=== PATIENT | male | born 1955 | race Caucasian/White ===

== ENCOUNTER 2022-12-24 11:15 | Emergency (ER) | payer OTHER ==
[2022-12-24 11:34] LABS: Absolute Lymphocytes (CBC) 1.5 K/uL (0.7-4.9); Hematocrit 39.9 % (39.6-49.0); Lymphocytes % 11.6 % (15.3-44.8); MCV 94.2 fL (80-100); MPV 6.1 fL (7.6-11.3); RBC Red Blood Cell Count 4.24 M/uL (4.33-5.43)
[2022-12-24] MEDS ORDERED: NITROGLYCERIN 0.4 MG/TAB SL ONE (11:37)
[2022-12-24] MEDS ORDERED: ALBUTEROL 2.5 MG/3 ML NEB SOL ONE ×2 (11:37→12:28)
[2022-12-24] MEDS ORDERED: IPRATROPIUM BROM 0.5MG/2.5ML ONE ×2 (11:38→12:28)
--- OUTSIDE RECORDS SUMMARY | 2022-12-24 11:42 | XMS REPORT | Continuity of Care Document ---
:1955 Author Organization [facility] t Address [address] [place] [address]. [address] [place] [address] Care Team Providers Name Role Phone Parul Mcdaniel MD Primary Care Physician Terra Parker Attending Clinician Unavailable MANDA PRITCHARD Attending Clinician Unavailable Manda Pritchard DO Attending Clinician Doctor Unassigned, [place] Attending Clinician Unavailable Daniel Attending Clinician Unavailable Brooke He MD Attending Clinician BROOKE HE Attending Clinician Unavailable ANKITA GILLETTE Attending Clinician Unavailable Ankita Gillette MD Attending Clinician DR ILIR JOHNSON Attending Clinician Unavailable RENETTA PEDERSON Attending Clinician Unavailable Jasper Pathak Attending Clinician Unavailable Rolan Rubalcava Attending Clinician Unavailable KATRINA CHI Attending Clinician Unavailable Luis BUNN, Eleuterio Attending Clinician Unavailable MARYSE HDZ Attending Clinician Unavailable LETI CHANEY Attending Clinician Unavailable Maryse Hdz Attending Clinician Terra Parker Admitting Clinician Unavailable Leonardo Jarrett Admitting Clinician Unavailable Daniel Admitting Clinician Unavailable DR ILIR JOHNSON Admitting Clinician Unavailable Jasper Pathak Admitting Clinician Unavailable DENA MONTANA Admitting Clinician Unavailable Payers Payer Name Policy Type Policy Number Effective Date Expiration Date Nic adams MEDICARE PART A [id number] 2018 \\T\\ B 00:00:00 MEDICAID OF [place] [id number] 2018 00:00:00 0500 [id number] 1961 00:00:00 0700 [id number] 1961 00:00:00 Problems Condition Condition Condition Status Onset Resolution Last Treating Co mments Source Name Details Category Date Date Treatment Clinician Date Protein-ca Protein-ca Disease Recurre Methodi alfredo fuentes nce 2-12 st malnutriti malnutriti 00:00: Ho spita on on 00 l Severe Severe Disease Recurre Methodi episode of 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 00:00: [facility] 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, disorder, without without 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 (chronic (chronic nce 2-11 st obstructiv obstructiv 00:00: Ho spita e e 00 l pulmonary pulmonary disease) disease) Alcohol 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 ICD10 Diagnosis Term Order Editor Utility History of History of Disease Active 2011-06 Overview : Univers colonic colonic 08-05 Formattin ity o f polyps polyps 00:00: g of this [place] note Medical might be Branch different from the original. ICD10 Diagnosis Term Order Editor Utility Chronic Chronic Disease Active 2011-06 Univers airway airway 2-05 ity of obstructio obstructio 00:[place], [place] n, not 00 Medical elsewhere elsewhere Bran ch classified classified Esophageal Esophageal Disease Active 2011-06 U nivers reflux reflux 2-05 ity of 00:00: [place] 00 Medical Branch Chronic Chronic Disease Active 2011-06 Univers pain pain 2-05 ity of disorder disorder 00:00: [place] 00 Medical Branch Major Major Disease Active Overview: Univer s depressive depressive 3-30 Formattin ity of disorder, disorder, 00:00: [place] recurrent recurrent 00 note Medi juno episode, episode, might be Bran ch severe severe different from the original. ICD10 Diagnosis Term Order Editor Utility Posttrauma Posttrauma Disease Active U nivers tic stress tic stress 3-30 it y of disorder disorder 00:00: [place] 00 Medical Branch Major Major Disease Active Overview: Univer s depressive depressive 5-19 Formattin ity of disorder, disorder, 00:00: [place] of this [place] single single 00 note Medical episode, episode, might be Bran ch severe severe different with with from the psychotic psychotic original. features features ICD10 Diagnosis Term Order Editor Utility Other and Other and Disease Active Uni vers unspecifie unspecifie 5-19 it y of d d 00:00: [place] superficia superficia 00 Me dical l injuries l injuries Br anch of eye of eye Suicidal Suicidal Disease Active Unive rs ideation ideation 11-15 ity of 00:00: [place] 00 Medical Branch Allergies, Adverse Reactions, Alerts Allergy Allergy Status Severity Reaction(s) Onset Inactive Treating Comm ents Source Name Type Date Date Clinician Mesna - Propensi Active Intraven ty to 7-13 ous adverse 00:00: reaction 00 to drug Demerol Propensi Active - Oral ty to 4-29 adverse 00:00: reaction 00 to drug neomycin DA Active SV REDNESS/SWEL HC A LING 6-24 [facility] meperidi DA Active SV HALLUCINATIO HC A ne NS/VIOLENCE 12-21 [facility] 00:[facility]: d [facility] neomycin DA Active SV REDNESS/SWEL HC A LING 07-31 [facility] 00:00: d 00 [facility] meperidi DA Active SV HALLUCINATIO 2018- HC A ne NS/VIOLENCE 07-31 Mainl an 00:00: d 00 [facility] Meperidi Propensi Active Hives Method i ne ty to 11-28 st adverse 00:00: Hospita reaction 00 l s to drug Neomycin Propensi Active Hives Method i ty to 11-28 st adverse 00:00: Hospita reaction 00 l s to drug neomycin DA Active U 2013-06 [facility] 07-06 Clear 00:00: [place] 00 [facility] meperidi DA Active U 2013-06 [facility] ne 07-06 Clear 00:00: [place] 00 [facility] Meperidi Propensi Active Rash 2005-0 Redness/s Uni vers ne (Pf) ty to 5-19 welling ity of adverse 00:00: [place] reaction 00 Medical s Branch Neomycin Propensi Active Rash 2005-0 Redness/s Uni vers ty to 5-19 welling ity of adverse 00:00: [place] reaction 00 Medical s Branch MEPERIDI DRUG Active Rash 2006-0 Univers NE (PF) 5-19 ity of 00:00: [place] 00 Medical [place] NEOMYCIN DRUG Active Rash 2005-0 Univers INGREDI 5-19 ity of 00:00: [place] 00 Medical [place] No Known DA Active [facility] s Social History Social Habit Start Date Stop Date Quantity Comments Source Gender identity [facility] Sexual orientation [facility] History of tobacco Cigarette Smoker University of use [facility] Exposure to 2022-08-19 2022-08-29 Not sure University of SARS-CoV-2 (event) 00:00:00 14:56:00 [facility] Tobacco use and 2022-01-17 2022-01-17 Smokeless Universit y of exposure 00:00:00 00:00:00 tobacco non-user [facility] History of Social 2019-08-15 2019-08-[address] function 00:00:00 00:00:00 Hospital Alcohol intake 2019-08-11 2019-08-11 Current drinker [facility]o dist 00:00:00 00:00:00 of alcohol Hospital (finding) Tobacco Comment 2019-08-10 2019-08-10 request faxed to Met oscar 00:00:00 00:00:00 quit line. Hospital Cigarettes smoked 2019-08-10 2019-08-[address] current (pack per 00:00:00 00:00:00 [facility] l day) - Reported Cigarette 2019-08-10 2019-08-10 [facility] 00:00:00 00:00:00 Hospital Sex Assigned At [birth year] [facility] 00:[facility] Smoking Status Start Date Stop Date Source Smokes tobacco daily 2022-01-17 00:00:00 [facility] ity of [place] [facility] Medications Ordered Filled Start Stop Current Ordering Indication Dosage Frequency Signature Comments Components Source Medication Medication Date Date Medication? Clinician (SIG) Name Name nicotine Yes 1{patch 1 Patch, Un radha (NICODERM) 08-29 } Topical, ity o f 21 mg/24 hr 22:15: Administer [place] patch 1 00 over 24 Medical Patch Hours, Branch Q24H, First dose on Talia 08/29/22 at 1615, Until Discontinu ed, Routine TAKE 1 2021-06 No TABLET 1-30 TWICE 00:00: DAILY. 00 mirtazapine 2021-06 No 30 mg 1-02 tablet 00:00: 00 chlorpromaz 2021-06 No ine 50 mg 1-02 tablet 00:00: 00 mirtazapine 1 No 30 mg 1-02 tablet 00:00: 00 chlorpromaz 2021-1 No ine 50 mg 1-02 tablet 00:00: 00 Dose 2021-0 No Unknown 7-15 00:00: 00 Dose 2021-0 No Unknown 7-15 00:00: 00 &lt 2022-0 No 7-14 00:00: 00 &lt 2-0 No 7-14 00:00: 00 metoprolol 2021-0 No 1mg tartrate 50 7-13 mg tablet 00:00: 00 diclofenac 2021-0 No 1mg sodium 75 7-13 mg 00:00: tablet,niesha 00 yed release Dose 2021-0 No Unknown 7-13 00:00: 00 &lt 2-0 No 7-13 00:00: 00 &lt 2-0 No 7-13 00:00: 00 &lt 2022-0 No 7-13 00:00: 00 &lt 2022-0 No 7-13 00:00: 00 Dose 2022-0 No Unknown 7-13 00:00: 00 &lt 2022-0 No 7-13 00:00: 00 Dose 2022-0 No Unknown 7-13 00:00: 00 &lt 2022-0 No 7-13 00:00: 00 &lt 2022-0 No 7-13 00:00: 00 Dose 2022-0 No Unknown 7-13 00:00: 00 TAKE 1 2022-0 No TABLET 7-13 TWICE 00:00: DAILY. 00 diclofenac 2-0 No 1mg sodium 75 7-13 mg 00:00: tablet,niesha 00 yed release Dose 2-0 No Unknown 7-13 00:00: 00 &lt 2022-0 No 7-13 00:00: 00 &lt 2022-0 No 7-13 00:00: 00 &lt 2022-0 No 7-13 00:00: 00 &lt 2022-0 No 7-13 00:00: 00 Dose 2022-0 No Unknown 7-13 00:00: 00 &lt 2022-0 No 7-13 00:00: 00 Dose 2022-0 No Unknown 7-13 00:00: 00 &lt 2022-0 No 7-13 00:00: 00 &lt 2022-0 No 7-13 00:00: 00 Dose 2022-0 No Unknown 7-13 00:00: 00 Dose 2022-0 No Unknown 7-13 00:00: 00 &lt 2022-0 No 7-13 00:00: 00 &lt 2022-0 No 7-13 00:00: 00 &lt 2022-0 No 7-13 00:00: 00 &lt 2022-0 No 7-13 00:00: 00 Dose 2022-0 No Unknown 7-13 00:00: 00 &lt 2022-0 No 7-13 00:00: 00 Dose 2022-0 No Unknown 7-13 00:00: 00 &lt 2022-0 No 7-13 00:00: 00 &lt 2022-0 No 7-13 00:00: 00 Dose 2022-0 No Unknown 7-13 00:00: 00 metoprolol 2022-0 No 1mg tartrate 50 4-29 mg tablet 00:00: 00 Dose 2022-0 No Unknown 4- 00:00: 00 Dose 2022-0 No Unknown 4- 00:00: 00 Dose 2022-0 No Unknown 4- 00:00: 00 Dose 2022-0 No Unknown 4- 00:00: 00 Dose 2022-0 No Unknown 4- 00:00: 00 Dose 2022-0 No Unknown 4 00:00: 00 Dose 2022-0 No Unknown 4- 00:00: 00 Dose 2022-0 No Unknown 4- 00:00: 00 Dose 2022-0 No Unknown 4 00:00: 00 Dose 2022-0 No Unknown 4 00:00: 00 Dose 2022-0 No Unknown 4 00:00: 00 Dose 2022-0 No Unknown 4 00:00: 00 Dose 2022-0 No Unknown 4 00:00: 00 Dose 2022-0 No Unknown 4 00:00: 00 Dose 2022-0 No Unknown 4 00:00: 00 Dose 2022-0 No Unknown 4- 00:00: 00 Dose 2022-0 No Unknown 4- 00:00: 00 Dose 2022-0 No Unknown 4- 00:00: 00 Dose 2022-0 No Unknown 4- 00:00: 00 Dose 2022-0 No Unknown 4- 00:00: 00 Dose 2022-0 No Unknown 4- 00:00: 00 Dose 2022-0 No Unknown 4- 00:00: 00 Dose 2022-0 No Unknown 4- 00:00: 00 Dose 2022-0 No Unknown 4- 00:00: 00 Dose 2022-0 No Unknown 4- 00:00: 00 Dose 2022-0 No Unknown 4- 00:00: 00 Dose 2-0 No Unknown 4- 00:00: 00 Dose 2022-0 No Unknown 4- 00:00: 00 Dose 2022-0 No Unknown 4- 00:00: 00 Dose 2022-0 No Unknown 4- 00:00: 00 Dose 2022-0 No Unknown 4- 00:00: 00 Dose 2022-0 No Unknown 4- 00:00: 00 Dose 2022-0 No Unknown 4-29 00:00: 00 Dose 2022-0 No Unknown 4-29 00:00: 00 Dose 2022-0 No Unknown 4-29 00:00: 00 metoprolol 2022-0 No 1mg tartrate 50 4-29 mg tablet 00:00: 00 Dose 2022-0 No Unknown 4- 00:00: 00 Dose 2022-0 No Unknown 4- 00:00: 00 Dose 2022-0 No Unknown 4-29 00:00: 00 metoprolol 2022-0 No 1mg tartrate 50 4-29 mg tablet 00:00: 00 Dose 2-0 No Unknown 4- 00:00: 00 Dose 2-0 No Unknown 4- 00:00: 00 Dose 2-0 No Unknown 4- 00:00: 00 Dose 2-0 No Unknown 4- 00:00: 00 Dose 2022-0 No Unknown 4- 00:00: 00 Dose 2022-0 No Unknown 4- 00:00: 00 Dose 2022-0 No Unknown 4- 00:00: 00 Dose 2022-0 No Unknown 4- 00:00: 00 Dose 2022-0 No Unknown 4- 00:00: 00 Dose 2-0 No Unknown 4- 00:00: 00 Dose 2-0 No Unknown 4- 00:00: 00 Dose 2-0 No Unknown 4- 00:00: 00 Dose 2022-0 No Unknown 4- 00:00: 00 Dose 2022-0 No Unknown 4- 00:00: 00 Dose 2022-0 No Unknown 4- 00:00: 00 Dose 2-0 No Unknown 4- 00:00: 00 Dose 2022-0 No Unknown 4- 00:00: 00 Dose 2022-0 No Unknown 4- 00:00: 00 Dose 2-0 No Unknown 4- 00:00: 00 Dose 2-0 No Unknown 4- 00:00: 00 Dose 2022-0 No Unknown 4- 00:00: 00 Dose 2022-0 No Unknown 4- 00:00: 00 Dose 2022-0 No Unknown 4-29 00:00: 00 Dose 2022-0 No Unknown 4-29 00:00: 00 Dose 2022-0 No Unknown 4-29 00:00: 00 Dose 2022-0 No Unknown 4- 00:00: 00 Dose 2022-0 No Unknown 4- 00:00: 00 Dose 2022-0 No Unknown 4- 00:00: 00 Dose 2022-0 No Unknown 4- 00:00: 00 Dose 2022-0 No Unknown 4- 00:00: 00 Dose 2022-0 No Unknown 4- 00:00: 00 Dose 2022-0 No Unknown 4- 00:00: 00 Dose 2022-0 No Unknown 4- 00:00: 00 Dose 2022-0 No Unknown 4- 00:00: 00 Dose 2022-0 No Unknown 4- 00:00: 00 Dose 2022-0 No Unknown 4- 00:00: 00 Dose 2022-0 No Unknown 4- 00:00: 00 Dose 2022-0 No Unknown 4- 00:00: 00 Dose 2022-0 No Unknown 4- 00:00: 00 Dose 2022-0 No Unknown 4- 00:00: 00 Dose 2022-0 No Unknown 4- 00:00: 00 Dose 2022-0 No Unknown 4- 00:00: 00 Dose 2022-0 No Unknown 4- 00:00: 00 Dose 2022-0 No Unknown 4- 00:00: 00 Dose 2022-0 No Unknown 4- 00:00: 00 Dose 2022-0 No Unknown 4- 00:00: 00 Dose 2022-0 No Unknown 4- 00:00: 00 Dose 2022-0 No Unknown 4- 00:00: 00 Dose 2022-0 No Unknown 4- 00:00: 00 Dose 2022-0 No Unknown 4- 00:00: 00 Dose 2022-0 No Unknown 4- 00:00: 00 Dose 2022-0 No Unknown 4- 00:00: 00 Dose 2022-0 No Unknown 4- 00:00: 00 Dose 2022-0 No Unknown 4- 00:00: 00 Dose 2022-0 No Unknown 4- 00:00: 00 Dose 2022-0 No Unknown 4- 00:00: 00 Dose 2022-0 No Unknown 4-29 00:00: 00 Dose 2022-0 No Unknown 4- 00:00: 00 Dose 2022-0 No Unknown 4- 00:00: 00 Dose 2-0 No Unknown 4- 00:00: 00 Dose 2-0 No Unknown 4- 00:00: 00 Dose 2-0 No Unknown 4- 00:00: 00 Dose 2022-0 No Unknown 4- 00:00: 00 Dose 2022-0 No Unknown 4- 00:00: 00 Dose 2-0 No Unknown 4- 00:00: 00 Dose 2-0 No Unknown 4- 00:00: 00 Dose 2022-0 No Unknown 4- 00:00: 00 ProAir HFA 2-0 No 2mcg/ac 90 1-28 tuation mcg/actuati 00:00: on aerosol 00 inhaler Dose 2-0 No Unknown 1-28 00:00: 00 metoprolol 2-0 No 1mg tartrate 50 1-28 mg tablet 00:00: 00 ProAir HFA 2-0 No 2mcg/ac 90 1-28 tuation mcg/actuati 00:00: on aerosol 00 inhaler Dose 2-0 No Unknown 1-28 00:00: 00 metoprolol 2022-0 No 1mg tartrate 50 1-28 mg tablet 00:00: 00 ProAir HFA 2-0 No 2mcg/ac 90 1-28 tuation mcg/actuati 00:00: on aerosol 00 inhaler Dose 2-0 No Unknown 1-28 00:00: 00 metoprolol 2022-0 No 1mg tartrate 50 1-28 mg tablet 00:00: 00 Dose 1-1 No Unknown 0-14 00:00: 00 Dose 1-1 No Unknown 0-14 00:00: 00 Dose 1-1 No Unknown 0-14 00:00: 00 Viagra 25 2021-0 No 1mg mg tablet 03-08 00:00: 00 Viagra 25 2021-0 No 1mg mg tablet 03-08 00:00: 00 Viagra 25 2021-0 No 1mg mg tablet 03-08 00:00: 00 lithium 1-0 No mg carbonate 8-31 ER 450 mg 00:00: tablet,exte 00 nded release duloxetine 2020-0 No mg 60 mg 8-31 capsule,del 00:00: ayed 00 release lithium 1-0 No mg carbonate 8-31 ER 450 mg 00:00: tablet,exte 00 nded release duloxetine 1-0 No mg 60 mg 8-31 capsule,del 00:00: ayed 00 release lithium 2021-0 No mg carbonate 8-31 ER 450 mg 00:00: tablet,exte 00 nded release duloxetine 1-0 No mg 60 mg 8-31 capsule,del 00:00: ayed 00 release atorvastati 2021-0 No 1mg n 20 mg 7-07 tablet 00:00: 00 atorvastati 2021-0 No 1mg n 20 mg 7-07 tablet 00:00: 00 atorvastati 2021-0 No 1mg n 20 mg 7-07 tablet 00:00: 00 atorvastati 2021-0 No 1mg n 20 mg 3-18 tablet 00:00: 00 atorvastati 2021-0 No 1mg n 20 mg 3-18 tablet 00:00: 00 atorvastati 2021-0 No 1mg n 20 mg 3-18 tablet 00:00: 00 Symbicort 2021-0 No 2mcg/ac 160 mcg-4.5 3-11 tuation mcg/actuati 00:00: on HFA 00 aerosol inhaler ProAir HFA 2021-0 No 1mcg/ac 90 3-11 tuation mcg/actuati 00:00: on aerosol 00 inhaler metoprolol 2021-0 No 1mg succinate 3-11 ER 50 mg 00:00: tablet,exte 00 nded release 24 hr Symbicort 2021-0 No 2mcg/ac 160 mcg-4.5 3-11 tuation mcg/actuati 00:00: on HFA 00 aerosol inhaler ProAir HFA 2021-0 No 1mcg/ac 90 3-11 tuation mcg/actuati 00:00: on aerosol 00 inhaler metoprolol 2021-0 No 1mg succinate 3-11 ER 50 mg 00:00: tablet,exte 00 nded release 24 hr Symbicort 2021-0 No 2mcg/ac 160 mcg-4.5 3-11 tuation mcg/actuati 00:00: on HFA 00 aerosol inhaler ProAir HFA 2021-0 No 1mcg/ac 90 3-11 tuation mcg/actuati 00:00: on aerosol 00 inhaler metoprolol 1-0 No 1mg succinate 3-11 ER 50 mg 00:00: tablet,exte 00 nded release 24 hr ProAir HFA 2020-0 No 1mcg/ac 90 2-04 tuation mcg/actuati 00:00: on aerosol 00 inhaler Advair 1-0 No 1mcg/do Diskus 250 2-04 se mcg-50 00:00: mcg/dose 00 powder for inhalation ProAir HFA 2020-0 No 1mcg/ac 90 2-04 tuation mcg/actuati 00:00: on aerosol 00 inhaler metoprolol 1-0 No 1mg succinate 2-04 ER 50 mg 00:00: tablet,exte 00 nded release 24 hr Advair 2020-0 No 1mcg/do Diskus 250 2-04 se mcg-50 00:00: mcg/dose 00 powder for inhalation metoprolol 2020-0 No 1mg succinate 2-04 ER 50 mg 00:00: tablet,exte 00 nded release 24 hr ProAir HFA 2020-0 No 1mcg/ac 90 2-04 tuation mcg/actuati 00:00: on aerosol 00 inhaler Advair 1-0 No 1mcg/do Diskus 250 2-04 se mcg-50 00:00: mcg/dose 00 powder for inhalation metoprolol 1-0 No 1mg succinate 2-04 ER 50 mg 00:00: tablet,exte 00 nded release 24 hr metoprolol 2020-0 No 1mg succinate 1-21 ER 50 mg 00:00: tablet,exte 00 nded release 24 hr metoprolol 1-0 No 1mg succinate 1-21 ER 50 mg 00:00: tablet,exte 00 nded release 24 hr metoprolol 1-0 No 1mg succinate 1-21 ER 50 mg 00:00: tablet,exte 00 nded release 24 hr trazodone 2020-0 No 1mg 150 mg 9-29 tablet 00:00: 00 mirtazapine 2020-0 No 1mg 45 mg 9-29 tablet 00:00: 00 gabapentin 2020-0 No 1mg 600 mg 9-29 tablet 00:00: 00 sucralfate 2020-0 No 1gram 1 gram 9-29 tablet 00:00: 00 trazodone 2020-0 No 1mg 150 mg 9-29 tablet 00:00: 00 mirtazapine 2020-0 No 1mg 45 mg 9-29 tablet 00:00: 00 gabapentin 2020-0 No 1mg 600 mg 9-29 tablet 00:00: 00 sucralfate 2020-0 No 1gram 1 gram 9-29 tablet 00:00: 00 trazodone 2020-0 No 1mg 150 mg 9-29 tablet 00:00: 00 mirtazapine 2020-0 No 1mg 45 mg 9-29 tablet 00:00: 00 gabapentin 2020-0 No 1mg 600 mg 9-29 tablet 00:00: 00 sucralfate 2020-0 No 1gram 1 gram 9-29 tablet 00:00: 00 prednisoLON 2020-0 Yes [id number] 1[drp] Place 1 Univers E acetate 1 6-11 [id number] Drop in ity of % 00:00: both eyes [place] ophthalmic 00 3 (three) Medi juno suspension times Branch drops daily. prednisoLON 2020-0 Yes [id number] 1[drp] Place 1 Univers E acetate 1 6-11 [id number] Drop in ity of % 00:00: both eyes [place] ophthalmic 00 3 (three) Medi juno suspension times Branch drops daily. prednisoLON 2020-0 Yes [id number] 1[drp] Place 1 Univers E acetate 1 6-11 [id number] Drop in ity of % 00:00: both eyes [place] ophthalmic 00 3 (three) Medi juno suspension times Branch drops daily. prednisoLON 2020-0 Yes [id number] 1[drp] Place 1 Univers E acetate 1 6-11 [id number] Drop in ity of % 00:00: both eyes [place] ophthalmic 00 3 (three) Medi juno suspension times Branch drops daily. gabapentin 2020-0 Yes 600mg 600 mg. Uni vers 600 mg 5-12 ity of tablet 00:00: [place] [facility] gabapentin 2020-0 Yes 600mg 600 mg. Uni vers 600 mg 5-12 ity of tablet 00:00: [place] [facility] gabapentin 2020-0 Yes 600mg 600 mg. Uni vers 600 mg 5-12 ity of tablet 00:00: [place] [facility] gabapentin 2020-0 Yes 600mg 600 mg. Uni vers 600 mg 5-12 ity of tablet 00:00: [place] [id number] Medical Branch No known 2020-0 No No known Metho di medications 2-[address] 15:03: [facility] No known 2020-0 No No known Metho di medications 2-[address] 15:03: [facility] No known 2020-0 No No known Metho di medications 2-[address] 15:03: [facility] tamsulosin 2020-0 No 1mg 0.4 mg 2-06 capsule 00:00: 00 tamsulosin 2020-0 No 1mg 0.4 mg 2-06 capsule 00:00: 00 tamsulosin 2020-0 No 1mg 0.4 mg 2-06 capsule 00:00: 00 duloxetine 2020-0 No 1mg 60 mg 1-14 capsule,del 00:00: ayed 00 release duloxetine 2020-0 No 1mg 60 mg 1-14 capsule,del 00:00: ayed 00 release duloxetine 2020-0 No 1mg 60 mg 1-14 capsule,del 00:00: ayed 00 release mirtazapine 2018-0 Yes 45mg Take 45 mg Univers (REMERON) 9-10 by mouth ity of 45 mg 13:18: at [place] [address] bedtime. Medical Branch SUCRALFATE Yes Take by [facility] ers ORAL 9-10 mouth. ity of 13:18: [address] Branch mirtazapine Yes 45mg Take 45 mg Univers (REMERON) 9-10 by mouth ity of 45 mg 13:18: at [place] [address] bedtime. Medical Branch SUCRALFATE Yes Take by [facility] ers ORAL 9-10 mouth. ity of 13:18: [address] mirtazapine Yes 45mg Take 45 mg Univers (REMERON) 9-10 by mouth ity of 45 mg 13:18: at [place] tablet bedtime. Medical Branch SUCRALFATE Yes Take by [facility] ers ORAL 9-10 mouth. ity of 13:18: [address] mirtazapine 2018- Yes 45mg Take 45 mg Univers (REMERON) 9-10 by mouth ity of 45 mg 13:18: at [place] tablet bedtime. Medical Branch SUCRALFATE Yes Take by [facility] ers ORAL 9-10 mouth. ity of 13:18: [place] 32 [facility] latanoprost 2019-0 Yes 1[drp] Place 1 U nivers 0.005 % 5-24 Drop in ity of ophthalmic 00:00: [place] drops 00 every Medical evening. Branch latanoprost 2018-0 Yes 1[drp] Place 1 U nivers 0.005 % 5-24 Drop in ity of ophthalmic 00:00: [place] eyes [place] drops 00 every Medical evening. Branch latanoprost 2018-0 Yes 1[drp] Place 1 U nivers 0.005 % 5-24 Drop in ity of ophthalmic 00:00: [place] drops 00 every Medical evening. Branch latanoprost 2018-0 Yes 1[drp] Place 1 U nivers 0.005 % 5-24 Drop in ity of ophthalmic 00:00: [place] eyes [place] drops 00 every Medical evening. [place] lactulose 2019-0 Yes Univers 10 gram/15 2-27 ity of mL solution 00:00: [place] 00 [facility] lactulose 2019-0 Yes Univers 10 gram/15 2-27 ity of mL solution 00:00: [address] lactulose 2019-0 Yes Univers 10 gram/15 2-27 ity of mL solution 00:00: [address] lactulose 2019-0 Yes Univers 10 gram/15 2-27 ity of mL solution 00:00: [address] Abilify 5 2019-0 No 1mg mg tablet 2-21 00:00: 00 Abilify 5 2019-0 No 1mg mg tablet 2-21 00:00: 00 Abilify 5 2019-0 No 1mg mg tablet 2-21 00:00: 00 Remeron 30 2019-0 No 25mg mg tablet - 00:00: 00 Remeron 30 2019-0 No 25mg mg tablet 07-08 00:00: 00 Remeron 30 2019-0 No 25mg mg tablet 07-08 00:00: 00 ARIPiprazol 2018-0 Yes Univer s e 5 mg 6-26 ity of tablet 00:00: [address] ARIPiprazol 2018-0 Yes Univer s e 5 mg 6-26 ity of tablet 00:00: [address] ARIPiprazol 2018-0 Yes Univer s e 5 mg 6-26 ity of tablet 00:00: [address] Branch ARIPiprazol 2018-0 Yes Univer s e 5 mg 6-26 ity of tablet 00:00: [address] Branch Remeron 45 2014-1 No 1mg mg tablet 2-22 00:00: 00 hydroxyzine 2014-1 No 1mg HCl 50 mg 2-22 tablet 00:00: 00 Remeron 45 2014-1 No 1mg mg tablet 2-22 00:00: 00 hydroxyzine 2014-1 No 1mg HCl 50 mg 2-22 tablet 00:00: 00 Remeron 45 2014-1 No 1mg mg tablet 2-22 00:00: 00 hydroxyzine 2014-1 No 1mg HCl 50 mg 2-22 tablet 00:00: 00 metoprolol 2015-0 No 1mg tartrate 25 5-20 mg tablet 00:00: 00 metoprolol 2015-0 No 1mg tartrate 25 5-20 mg tablet 00:00: 00 metoprolol 2015-0 No 1mg tartrate 25 5-20 mg tablet 00:00: 00 cyclobenzap 2015-0 No 1mg rine 5 mg 4-15 tablet 00:00: 00 naproxen 2015-0 No 1mg 375 mg 4-15 tablet 00:00: 00 cyclobenzap 2015-0 No 1mg rine 5 mg 4-15 tablet 00:00: 00 naproxen 2015-0 No 1mg 375 mg 4-15 tablet 00:00: 00 cyclobenzap 2015-0 No 1mg rine 5 mg 4-15 tablet 00:00: 00 naproxen 2015-0 No 1mg 375 mg 4-15 tablet 00:00: 00 lithium 2015-0 No 1mg carbonate 2-25 ER 450 mg 00:00: tablet,exte 00 nded release Cymbalta 60 2015-0 No 1mg mg 2-25 capsule,del 00:00: ayed 00 release Neurontin 2015-0 No 1mg 300 mg 2-25 capsule 00:00: 00 Cymbalta 60 2015-0 No 2mg mg 2-25 capsule,del 00:00: ayed 00 release lithium 2015-0 No 1mg carbonate 2-25 ER 450 mg 00:00: tablet,exte 00 nded release Cymbalta 60 2014-0 No 1mg mg 2-25 capsule,del 00:00: ayed 00 release Neurontin 2015-0 No 1mg 300 mg 2-25 capsule 00:00: 00 Cymbalta 60 2014-0 No 2mg mg 2-25 capsule,del 00:00: ayed 00 release lithium 2015-0 No 1mg carbonate 2-25 ER 450 mg 00:00: tablet,exte 00 nded release Cymbalta 60 2014-0 No 1mg mg 2-25 capsule,del 00:00: ayed 00 release Neurontin 2015-0 No 1mg 300 mg 2-25 capsule 00:00: 00 Cymbalta 60 2014-0 No 2mg mg 2-25 capsule,del 00:00: ayed 00 release DULoxetine 2013- Yes [id number] 60mg Take 1 Cap Univers (CYMBALTA) 3-14 by mouth 2 ity of 60 mg 00:00: (two) [place] capsule 00 times Medical daily. [place] lithium Yes [id number] 450mg Take 1 Tab Univers carbonate 3-14 by mouth 2 ity of CR 450 mg 00:00: (two) [place] SR tablet 00 times Medical daily. [place] DULoxetine Yes [id number] 60mg Take 1 Cap Univers (CYMBALTA) 3-14 by mouth 2 ity of 60 mg 00:00: (two) [place] capsule 00 times Medical daily. Branch lithium 2013- Yes [id number] 450mg Take 1 Tab Univers carbonate 3-14 by mouth 2 ity of CR 450 mg 00:00: (two) [place] SR tablet 00 times Medical daily. [place] DULoxetine 2013- Yes [id number] 60mg Take 1 Cap Univers (CYMBALTA) 3-14 by mouth 2 ity of 60 mg 00:00: (two) [place] capsule 00 times Medical daily. Branch lithium 2013- Yes [id number] 450mg Take 1 Tab Univers carbonate 3-14 by mouth 2 ity of CR 450 mg 00:00: (two) [place] SR tablet 00 times Medical daily. Branch DULoxetine 2013- Yes [id number] 60mg Take 1 Cap Univers (CYMBALTA) 3-14 by mouth 2 ity of 60 mg 00:00: (two) [place] capsule 00 times Medical daily. Branch lithium 2013- Yes [id number] 450mg Take 1 Tab Univers carbonate 3-14 by mouth 2 ity of CR 450 mg 00:00: (two) [place] SR tablet 00 times Medical daily. Branch Immunizations Ordered Filled Immunization Date Status Comments [facility] e Immunization Name Name influenza, seasonal 2022-05-02 Completed vaccine, 00:00:00 quadrivalent, adjuvanted, .5mL dose, preservative-free influenza, seasonal 2022-05-02 Completed vaccine, 00:00:00 quadrivalent, adjuvanted, .5mL dose, preservative-free Moderna COVID-19 2021-10-26 Completed Vaccine 00:00:00 Moderna COVID-19 2021-10-26 Completed Vaccine 00:00:00 Moderna COVID-19 2021-10-26 Completed Vaccine 00:00:00 Moderna COVID-19 Moderna COVID-19 2021-10-26 Completed Vaccine Vaccine 00:00:00 Moderna COVID-19 2021-09-28 Completed Vaccine 00:00:00 Moderna COVID-19 2021-09-28 Completed Vaccine 00:00:00 Moderna COVID-19 2021-09-28 Completed Vaccine 00:00:00 Moderna COVID-19 Moderna COVID-19 2021-09-28 Completed Vaccine Vaccine 00:00:00 Pfizer COVID-19 Pfizer COVID-19 2021-02-25 Completed Vaccine Vaccine 00:00:00 Pneumococcal 2020-07-04 Completed conjugate P 00:00:00 Pneumococcal 2020-07-04 Completed conjugate P 00:00:00 Pneumococcal 2020-07-04 Completed conjugate P 00:00:00 TDAP 2019-06-03 Completed University of 00:00:00 [facility] TDAP 2019-06-03 Completed University of 00:00:00 [facility] Influenza, 2019-05-25 Completed seasonal, inj 00:00:00 Influenza, 2019-05-25 Completed seasonal, inj 00:00:00 Influenza, 2019-05-25 Completed seasonal, inj 00:00:00 Influenza Virus 2012-06-03 Completed Universit y of Vaccine 00:00:00 [facility] Influenza Virus 2012-06-03 Completed Universit y of Vaccine 00:00:00 [facility] Influenza Virus 2012-06-03 Completed Universit y of Vaccine 00:00:00 [facility] Influenza Virus 2012-06-03 Completed Universit y of Vaccine 00:00:00 [facility] Vital Signs Vital Name Observation Time Observation Value Comments Source Systolic blood 2022-08-30 02:24:00 138 mm[Hg] Univer sity of pressure [facility] [place] [facility] Diastolic blood 2022-08-30 02:24:00 79 mm[Hg] Unive rsity of pressure [facility] Heart rate 2022-08-30 02:24:00 78 /min [facility] [place] [facility] [place] Body temperature 2022-08-30 02:24:00 36.67 Nancy Univ ersity of [facility] [place] [facility] Respiratory rate 2022-08-30 02:24:00 17 /min Univ ersity of [facility] [place] [facility] Oxygen saturation in 2022-08-30 02:24:00 99 /min University of Arterial blood by [employer] Pulse oximetry Branch Body height 2022-08-29 20:58:00 185.4 cm [facility] [place] [facility] [place] Body weight 2022-08-29 20:58:00 95.255 kg [facility] [place] [facility] [place] BMI 2022-08-29 20:58:00 27.71 kg/m2 [facility] [place] [facility] Systolic blood 2022-01-17 14:34:00 136 mm[Hg] Univer sity of pressure [place] [facility] Diastolic blood 2022-01-17 14:34:00 86 mm[Hg] Unive rsity of pressure [facility] Heart rate 2022-01-17 14:34:00 85 /min [facility] [place] [facility] Body height 2022-01-17 14:34:00 185.4 cm [facility] [place] [facility] Body weight 2022-01-17 14:34:00 91.627 kg [facility] [place] [facility] BMI 2022-01-17 14:34:00 26.65 kg/m2 Universi ty of [facility] [place] [facility] Oxygen saturation in 2022-01-17 14:34:00 96 /min University of Arterial blood by [employer] Pulse [employer]xim[employer] Branch Weight 2021-05-28 08:26:00 76.2 KG Weight 2021-05-21 11:40:00 74.75 KG Height 2021-05-13 12:13:00 185.42 CM Weight 2021-05-13 12:13:00 72.57 KG BP Systolic 2022-05-29 16:38:00 147 mm[Hg] BP Diastolic 2022-05-29 16:38:00 87 mm[Hg] Weight Measured 2022-05-29 16:38:00 210.60 pounds Height Measured 2022-05-29 16:38:00 71.00 inches Body Temperature 2022-05-29 16:38:00 98.30 degrees Heart Rate 2022-05-29 16:38:00 96.00 /min Respiratory Rate 2022-05-29 16:38:00 BP Systolic 2022-05-02 10:16:00 137 mm[Hg] BP Diastolic 2022-05-02 10:16:00 82 mm[Hg] Weight Measured 2022-05-02 10:16:00 208.60 pounds Height Measured 2022-05-02 10:16:00 71.00 inches Body Temperature 2022-05-02 10:16:00 98.30 degrees Heart Rate 2022-05-02 10:16:00 83.00 /min Respiratory Rate 2022-05-02 10:16:00 BP Systolic 2022-01-09 09:53:00 138 mm[Hg] BP Diastolic 2022-01-09 09:53:00 81 mm[Hg] Weight Measured 2022-01-09 09:53:00 200.40 pounds Height Measured 2022-01-09 09:53:00 71.00 inches Body Temperature 2022-01-09 09:53:00 98.20 degrees Heart Rate 2022-01-09 09:53:00 79.00 /min Respiratory Rate 2022-01-09 09:53:00 BP Systolic 2021-10-26 14:49:00 114 mm[Hg] BP Diastolic 2021-10-26 14:49:00 74 mm[Hg] Weight Measured 2021-10-26 14:49:00 196.80 pounds Height Measured 2021-10-26 14:49:00 71.00 inches Body Temperature 2021-10-26 14:49:00 97.80 degrees Heart Rate 2021-10-26 14:49:00 68.00 /min Respiratory Rate 2021-10-26 14:49:00 BP Systolic 2021-08-14 10:05:00 126 mm[Hg] BP Diastolic 2021-08-14 10:05:00 79 mm[Hg] Weight Measured 2021-08-14 10:05:00 108.60 pounds Height Measured 2021-08-14 10:05:00 71.00 inches Body Temperature 2021-08-14 10:05:00 97.50 degrees Heart Rate 2021-08-14 10:05:00 57.00 /min Respiratory Rate 2021-08-14 10:05:00 BP Systolic 2021-07-27 11:28:00 131 mm[Hg] BP Diastolic 2021-07-27 11:28:00 82 mm[Hg] Weight Measured 2021-07-27 11:28:00 179.20 pounds Height Measured 2021-07-27 11:28:00 71.00 inches Body Temperature 2021-07-27 11:28:00 96.70 degrees Heart Rate 2021-07-27 11:28:00 73.00 /min Respiratory Rate 2021-07-27 11:28:00 16.00 /min BP Systolic 2021-03-08 11:16:00 119 mm[Hg] BP Diastolic 2021-03-08 11:16:00 71 mm[Hg] Weight Measured 2021-03-08 11:16:00 171.20 pounds Height Measured 2021-03-08 11:16:00 71.00 inches Body Temperature 2021-03-08 11:16:00 97.60 degrees Heart Rate 2021-03-08 11:16:00 74.00 /min Respiratory Rate 2021-03-08 11:16:00 16.00 /min BP Systolic 2020-09-07 10:39:00 93 mm[Hg] BP Diastolic 2020-09-07 10:39:00 58 mm[Hg] Weight Measured 2020-09-07 10:39:00 176.20 pounds Height Measured 2020-09-07 10:39:00 71.00 inches Body Temperature 2020-09-07 10:39:00 98.10 degrees Heart Rate 2020-09-07 10:39:00 92.00 /min Respiratory Rate 2020-09-07 10:39:00 16.00 /min BP Systolic 2020-08-03 11:45:00 123 mm[Hg] BP Diastolic 2020-08-03 11:45:00 72 mm[Hg] Weight Measured 2020-08-03 11:45:00 171.20 pounds Height Measured 2020-08-03 11:45:00 71.00 inches Body Temperature 2020-08-03 11:45:00 98.30 degrees Heart Rate 2020-08-03 11:45:00 90.00 /min Respiratory Rate 2020-08-03 11:45:00 17.00 /min BP Systolic 2020-07-31 16:49:00 161 mm[Hg] BP Diastolic 2020-07-31 16:49:00 92 mm[Hg] Weight Measured 2020-07-31 16:49:00 Height Measured 2020-07-31 16:49:00 Body Temperature 2020-07-31 16:49:00 Heart Rate 2020-07-31 16:49:00 96.00 /min Respiratory Rate 2020-07-31 16:49:00 BP Systolic 2020-07-20 11:07:00 151 mm[Hg] BP Diastolic 2020-07-20 11:07:00 91 mm[Hg] Weight Measured 2020-07-20 11:07:00 171.40 pounds Height Measured 2020-07-20 11:07:00 71.00 inches Body Temperature 2020-07-20 11:07:00 98.00 degrees Heart Rate 2020-07-20 11:07:00 82.00 /min Respiratory Rate 2020-07-20 11:07:00 16.00 /min BP Systolic 2020-07-04 11:19:00 158 mm[Hg] BP Diastolic 2020-07-04 11:19:00 90 mm[Hg] Weight Measured 2020-07-04 11:19:00 172.20 pounds Height Measured 2020-07-04 11:19:00 71.00 inches Body Temperature 2020-07-04 11:19:00 98.50 degrees Heart Rate 2020-07-04 11:19:00 Respiratory Rate 2020-07-04 11:19:00 Procedures Procedure Date / Time Performing Clinician Source Performed CREATINE KINASE 2022-08-29 21:15:00 Manda Pritchard [facility] Branch COMP. METABOLIC PANEL 2022-08-29 21:15:00 Manda Pritchard [facility] ([id number]) Medical Branch SALICYLATE 2022-08-29 21:15:00 Manda Pritchard [facility] ETHANOL 2022-08-29 21:15:00 Manda Pritchard [facility] CBC WITH DIFF 2022-08-29 21:15:00 Manda Pritchard [facility] URINALYSIS 2022-08-29 21:15:00 Manda Pritchard [facility] COVID-19 (MOLECULAR 2022-08-29 21:15:00 Manda Pritchard [facility] TESTING [facility] NUCLEIC ACID AMPLIFICATION) COVID-19 (ID NOW RAPID 2022-08-29 21:15:00 [facility] URINE DRUG (IMMUNOASSAY) 2022-08-29 21:15:00 Manda Pritchard [facility] COMPREHENSIVE DRUG Medical [facility] SCREEN W/O REFLEX REFERRAL- 2022-06-14 06:01:00 Doctor Unassigned, No [facility] REQUEST/RESPONSE Name Medical Branch [id number] - Removal Of 2020-05-16 00:00:00 Impacted Cerumen Using Irrigation/lavage [id number] - Removal Of 2020-05-09 00:00:00 Impacted Cerumen Using Irrigation/lavage Plan of Care Planned Activity Planned Date Details Comments Source Future Scheduled 2022-12-13 Screening for [facility] Test 03:22:34 malignant neoplasm of colon (procedure) [code = 093654855] Future Scheduled 2022-12-13 Screening for [facility] Test 03:22:34 malignant neoplasm of colon (procedure) [code = 779810006] Future Scheduled 2022-12-13 Screening for [facility] Test 03:22:34 malignant neoplasm of colon (procedure) [code = 927866242] Future Scheduled 2022-12-13 COVID-19 VACCINE (#1) [facility] Test 03:22:34 [code = COVID-19 VACCINE (#1)] Future Scheduled 2022-12-13 65+ PNEUMOCOCCAL [facility] Test 03:22:34 VACCINE (1 - PCV) [code = 65+ PNEUMOCOCCAL VACCINE (1 - PCV)] Future Scheduled 2022-12-13 [facility] 03:22:34 (procedure) [code = 372927185] Future Scheduled 2022-12-13 Screening for [facility] Test 03:22:34 malignant neoplasm of colon (procedure) [code = 389971563] Future Scheduled 2022-12-13 Screening for [facility] Test 03:22:34 malignant neoplasm of colon (procedure) [code = 564442887] Future Scheduled 2022-12-13 SHINGLES VACCINES (1 [facility] 03:22:34 of 2) [code = SHINGLES VACCINES (1 of 2)] Future Scheduled 2022-12-13 INFLUENZA VACCINE [facility] Test 03:22:34 [code = INFLUENZA VACCINE] Future Scheduled 2022-10-16 COVID-19 VACCINE (#1) [facility] Test 15:18:22 [code = COVID-19 VACCINE (#1)] Future Scheduled 2022-10-16 65+ P[facility]UMOCOCCAL [facility] Test 15:18:22 VACCINE (1 - PCV) [code = 65+ PNEUMOCOCCAL VACCINE (1 - PCV)] Future Scheduled 2022-10-16 [facility] Test 15:18:22 (procedure) [code = 960274707] Future Scheduled 2022-10-16 COLONOSCOPY SCREENING [facility] Test 15:18:22 [code = COLONOSCOPY SCREENING] Future Scheduled 2022-10-16 SHINGLES VACCINES (1 [facility] Test 15:18:22 of 2) [code = SHINGLES VACCINES (1 of 2)] Future Scheduled 2022-10-16 INFLUENZA VACCINE [facility] Test 15:18:22 [code = INFLUENZA VACCINE] Future Scheduled 2022-10-16 COVID-19 VACCINE (#1) [facility] Test 15:18:22 [code = COVID-19 VACCINE (#1)] Future Scheduled 2022-10-16 65+ PNEUMOCOCCAL [facility] Test 15:18:22 VACCINE (1 - PCV) [code = 65+ PNEUMOCOCCAL VACCINE (1 - PCV)] Future Scheduled 2022-10-16 Hepatitis C screening [facility] Test 15:18:22 (procedure) [code = 648649748] Future Scheduled 2022-10-16 COLONOSCOPY SCREENING [facility] Test 15:18:22 [code = COLONOSCOPY SCREENING] Future Scheduled 2022-10-16 SHINGLES VACCINES (1 [facility] Test 15:18:22 of 2) [code = SHINGLES VACCINES (1 of 2)] Future Scheduled 2022-10-16 INFLUENZA VACCINE Method [facility] Test 15:18:22 [code = INFLUENZA VACCINE] Future Scheduled 2022-06-19 COVID-19 VACCINE (#1) [facility] Test 15:14:43 [code = COVID-19 VACCINE (#1)] Future Scheduled 2022-06-19 65+ PNEUMOCOCCAL [facility] Test 15:14:43 VACCINE (1 - PCV) [code = 65+ PNEUMOCOCCAL VACCINE (1 - PCV)] Future Scheduled 2022-06-19 Hepatitis C screening Me [facility] Test 15:14:43 (procedure) [code = 901182273] Future Scheduled 2022-06-19 COLONOSCOPY SCREENING [facility] Test 15:14:43 [code = COLONOSCOPY SCREENING] Future Scheduled 2022-06-19 SHINGLES VACCINES (1 [facility] Test 15:14:43 of 2) [code = SHINGLES VACCINES (1 of 2)] Future Scheduled 2022-06-19 INFLUENZA VACCINE [facility] Test 15:14:43 [code = INFLUENZA VACCINE] Future Scheduled 2022-06-19 COVID-19 VACCINE (#1) [facility] Test 15:14:43 [code = COVID-19 VACCINE (#1)] Future Scheduled 2022-06-19 65+ PNEUMOCOCCAL [facility] Test 15:14:43 VACCINE (1 - PCV) [code = 65+ PNEUMOCOCCAL VACCINE (1 - PCV)] Future Scheduled 2022-06-19 Hepatitis C screening [facility] Test 15:14:43 (procedure) [code = 870209393] Future Scheduled 2022-06-19 COLONOSCOPY SCREENING [facility] Test 15:14:43 [code = COLONOSCOPY SCREENING] Future Scheduled 2022-06-19 SHINGLES VACCINES (1 [facility] Test 15:14:43 of 2) [code = SHINGLES VACCINES (1 of 2)] Future Scheduled 2022-06-19 INFLUENZA VACCINE Method [facility] Hospital Test 15:14:43 [code = INFLUENZA VACCINE] Future Scheduled 2022-05-03 HEPATITIS B VACCINES [facility] Test 15:36:31 (1 of 3 - 3-dose series) [code = HEPATITIS B VACCINES (1 of 3 - 3-dose series)] Future Scheduled 2022-05-03 COVID-19 VACCINE (#1) [facility] Test 15:36:31 [code = COVID-19 VACCINE (#1)] Future Scheduled 2022-05-03 65+ PNEUMOCOCCAL [facility] Test 15:36:31 VACCINE (1 - PCV) [code = 65+ PNEUMOCOCCAL VACCINE (1 - PCV)] Future Scheduled 2022-05-03 Hepatitis C screening [facility] Test 15:36:31 (procedure) [code = 288388226] Future Scheduled 2022-05-03 COLONOSCOPY SCREENING [facility] Test 15:36:31 [code = COLONOSCOPY SCREENING] Future Scheduled 2022-05-03 SHINGLES VACCINES (1 [facility] Test 15:36:31 of 2) [code = SHINGLES VACCINES (1 of 2)] Future Scheduled 2022-05-03 INFLUENZA VACCINE Method [facility] Hospital Test 15:36:31 [code = INFLUENZA VACCINE] Goal Plan of Care Note [code = 42912-9] Goal Plan of Care Note [code = 64777-1] Goal Plan of Care Note [code = 86498-5] Goal Plan of Care Note [code = 57456-7] Goal Plan of Care Note [code = 52305-2] Goal Plan of Care Note [code = 82060-2] Goal Plan of Care Note [code = 19614-6] Goal Plan of Care Note [code = 00132-1] Goal Plan of Care Note [code = 45724-5] Goal Plan of Care Note [code = 14029-1] Goal Plan of Care Note [code = 93014-3] Goal Plan of Care Note [code = 43407-6] Goal Plan of Care Note [code = 27568-1] Goal Plan of Care Note [code = 39740-8] Goal Plan of Care Note [code = 16498-0] Goal Plan of Care Note [code = 44803-6] Goal Plan of Care Note [code = 74101-1] Goal Plan of Care Note [code = 46767-1] Goal Plan of Care Note [code = 06215-6] Goal Plan of Care Note [code = 57742-5] Goal Plan of Care Note [code = 65693-6] Goal Plan of Care Note [code = 79378-5] Goal Plan of Care Note [code = 61456-2] Goal Plan of Care Note [code = 96226-6] Goal Plan of Care Note [code = 44482-8] Goal Plan of Care Note [code = 53685-4] Goal Plan of Care Note [code = 07353-0] Goal Plan of Care Note [code = 60555-5] Goal Plan of Care Note [code = 30165-9] Goal Plan of Care Note [code = 92066-7] Goal Plan of Care Note [code = 12359-6] Goal Plan of Care Note [code = 43696-6] Goal Plan of Care Note [code = 69155-6] Goal Plan of Care Note [code = 56302-3] Goal Plan of Care Note [code = 86459-4] Goal Plan of Care Note [code = 18801-0] Goal Plan of Care Note [code = 13398-4] Goal Plan of Care Note [code = 42306-3] Goal Plan of Care Note [code = 83677-3] Goal Plan of Care Note [code = 12768-4] Goal Plan of Care Note [code = 40598-0] Goal Plan of Care Note [code = 86587-5] Goal Plan of Care Note [code = 34785-4] Goal Plan of Care Note [code = 55723-5] Goal Plan of Care Note [code = 78313-3] Goal Plan of Care Note [code = 55177-7] Goal Plan of Care Note [code = 37624-8] Goal Plan of Care Note [code = 78111-2] Goal Plan of Care Note [code = 06796-8] Goal Plan of Care Note [code = 39936-1] Goal Plan of Care Note [code = 15346-8] Goal Plan of Care Note [code = 65028-9] Goal Plan of Care Note [code = 01580-2] Goal Plan of Care Note [code = 22741-7] Goal Plan of Care Note [code = 01460-7] Goal Plan of Care Note [code = 10817-4] Goal Plan of Care Note [code = 26164-6] Goal Plan of Care Note [code = 87327-7] Goal Plan of Care Note [code = 62490-1] Goal Plan of Care Note [code = 90959-8] Goal Plan of Care Note [code = 85772-3] Goal Plan of Care Note [code = 16832-6] Goal Plan of Care Note [code = 84099-4] Goal Plan of Care Note [code = 24733-7] Goal Plan of Care Note [code = 85614-9] Encounters Start End Encounter Admission Attending Care Care Encounter Source Date/Time Date/Time Type Type Clinicians Facility Department ID 2020-11-28 Inpatient EM Parker, HCAMN MAS [id number] [facility] 16:16:00 Terra 84453 [facility] 2020-11-27 Inpatient HCAMN LIEN [id number] [facility] 12:49:00 [id number] [facility] 2020-09-14 Inpatient HC[facility]N LIEN [id number] [facility] 16:18:00 [id number] [facility] 2020-07-17 Inpatient HCAMN LIEN [id number] [facility] 13:00:00 [id number] [facility] 2019-08-23 Inpatient HCACL YRN [id number] [facility] 12:26:00 [id number] [facility] 2022-11-13 2022-11-13 Outpatient SFA SFA [id number] [place] 14:01:42 14:01:42 [address] [place] 2022-10-16 2022-10-16 Outpatient SFA SFA [id number] 230 [place] 15:18:09 15:18:09 [address] [place] 2022-08-29 2022-08-29 Emergency [facility] [id number] Univers 14:49:00 20:41:00 MANDA gomez [facility] 2022-08-29 2022-08-29 Emergency [facility] [id number] Univers 14:49:00 20:41:00 Manda NASSAR [id number] patricia [facility] 4.2.7.2.686 [facility] [phone] [address] 2022-07-29 2022-07-29 Outpatient SFA SFA [id number] 230 [place] 17:18:16 17:18:16 [address] [place] 2022-06-19 2022-06-19 Outpatient SFA SFA 4691-20 221 [place] 15:14:39 15:14:39 [address] [place] 2022-06-14 2022-06-14 Orders Doctor BRITNI 1.2.840.114 [id number] Univers 00:00:00 00:00:00 Only Unassigned, KLAUS [id number] ity of [place] [facility] 4.2.7.2.686 Srinivasa as [id number] [address] 2022-05-29 2022-05-29 Outpatient [facility] [id number] 221 [place] 16:29:32 16:29:32 130 [address] [place] 2022-05-29 2022-05-29 Outpatient [id number] 00:00:00 00:00:00 Visit [id number] [id number] 2022-05-02 2022-05-02 Outpatient [facility] [id number] 221 [place] 10:09:40 10:09:40 103 [address] [place] 2022-05-02 2022-05-02 Outpatient [id number] 00:00:00 00:00:00 Visit [id number]-a -[id number] [id number] 2022-04-02 2022-04-02 Outpatient Arceneaux_C VFP VFP 221 [id number] Village 00:00:00 00:00:00 [id number] Family Practic e 2022-02-11 2022-02-11 [facility]phone [facility] 1.2.840.114 [id number] Univers 00:00:00 00:00:00 Brooke [facility] 350.1.13.10 it y of [place] 4.2.7.2.686 Srinivasa as YARELIS?BLEA [id number] [place] [address]ty[address] MEDICAL OFFICE BUILDING 2022-01-24 2022-01-24 Outpatient R YING [facility] [id number] [facility] 09:30:00 09:30:00 BROOKE gomez of [facility] 2022-01-17 2022-01-17 Office [facility] [id number] Univers 10:00:00 10:40:59 Visit Brooke [facility] [id number] it y [facility] 4.2.7.2.686 Srinivasa as YARELIS?[facility] [id number] [facility] [address] MEDICAL OFFICE [facility] 2022-01-17 2022-01-17 Outpatient Edwin HE [facility] [id number] Univers 10:00:00 10:40:59 [facility] 2022-01-17 2022-01-[address] [id number] Univers 10:00:00 10:00:00 [facility] 2022-01-09 2022-01-09 Outpatient [id number] 00:00:00 00:00:00 Visit [id number] 2021-10-26 2021-10-26 Outpatient GCCOVIDV GCCOVIDV [id number] [facility] 00:00:00 00:00:00 V 2021-09-28 2021-09-28 Outpatient GCCOVIDV GCCOVIDV [id number] [facility] 00:00:00 00:00:00 V 2021-09-25 2021-09-[address] [facility] [id number] Univers 14:30:00 14:30:00 ANKITA [facility] 2021-09-25 2021-09-25 Office [facility] 1.2.840.114 [id number] Univers 14:30:00 14:30:00 [facility] [id number] patricia [place] 4.2.7.2.686 [facility] [id number] [address] [facility] 2021-09-25 2021-09-[address] [id number] Univers 14:30:00 14:21:45 [facility] 2021-05-13 2021-05-29 [facility] [id number] 14:20:00 11:27:[address] [facility] 2021-04-17 2021-04-17 Outpatient Edwin PEDERSON [facility] [id number] Univers 14:00:00 14:00:00 RENETTA [facility] 2021-02-25 2021-02-25 Outpatient GCCOVIDV GCCOVIDV [id number] [facility]OVID 00:00:00 00:00:00 V 2020-12-21 2020-12-21 Inpatient EM Zo, HCAMN TELE [id number] [facility] 00:14:00 09:44:00 [place] [id number] [facility] 2020-12-20 2020-12-20 Emergency EM Khadar, [facility] LIEN [id number] [facility] 20:30:00 20:30:00 Rolan [id number] [facility] 2020-11-17 2020-11-17 Outpatient Edwin [facility] [id number] Univers 10:20:00 10:20:00 KATRINA [facility] 2020-11-17 2020-11-17 Case [facility] [id number] Univers 00:00:00 00:00:00 Management [facility] [id number] ity of League [id number] [facility] [phone] [address] ([facility]) 2020-11-17 2020-11-17 Case Luis [facility] [id number] 00:00:00 00:00:00 Management [facility] [id number] League [id number] [phone] [address] ([facility]) 2020-10-11 2020-10-11 Telephone Nain [facility] [facility] 1.2.840.114 [id number] Univers 00:00:00 00:00:00 Ankita GARRETTPEC 350.1.13.10 ity of IALTY 4.2.7.2.686 [facility] [phone] [facility] AND [address] DIABETES CLINIC 2020-10-11 2020-10-11 Telephone [facility] 1.2.840.114 [id number] 00:00:00 00:00:00 Ankita GARRETTPEC 350.1.13.10 IAL[place] 4.2.7.2.686 [place] [phone] [place] [address] [facility]ES CLINIC 2020-09-05 2020-09-05 Office [facility] 1.2.840.114 [id number] [facility] 13:20:14 13:44:27 Visit Ankita GARRETTPEC 350.1.13.10 ity of IALTY 4.2.7.2.686 [facility] [phone] [facility] AND [address] DIABETES CLINIC 2020-09-05 2020-09-05 [facility] 1.2.840.114 [id number] 13:20:14 13:44:27 Visit Ankita GARRETTPEC 350.1.13.10 IAL[place] 4.2.7.2.686 [place] [phone] [place] [address] [facility] 2020-09-05 2020-09-05 [facility] 1.2.840.114 [id number] [facility] 09:51:31 10:06:31 Visit Ankita TAMIPEC 350.1.13.10 ity of [place]AL[place] 4.2.7.2.686 [facility] [phone] [address] DIABETES [facility] 2020-09-05 2020-09-05 Outpatient R NAIN [facility] [id number] [facility] 09:45:00 09:45:00 ANKITA ity of [facility] 2020-09-05 2020-09-05 Orders Doctor RYDER 1.2.840.114 [id number] Univers 00:00:00 00:00:00 Only Unassigned, KLAUS 350.1.13.10 it[facility] 4.2.7.2.686 Srin[place]asa as [phone] [address] 2020-09-05 2020-09-05 Orders Doctor RYDER 1.2.840.114 [id number] 00:00:00 00:00:00 Only Unassigned, KLAUS 350.1.13.10 [facility] 4.2.7.2.686 [id number] 009 2020-08-03 2020-08-03 Orders Doctor BRITNI 1.2.840.114 [id number] Univers 00:00:00 00:00:00 Only Unassigned, KLAUS 350.1.13.10 ity of [place] [facility] 4.2.7.2.686 Srinivasa [phone] [address] 2020-08-03 2020-08-03 Orders Doctor BRITNI 1.2.840.114 [id number] 00:00:00 00:00:00 Only Unassigned, KLAUS 350.1.13.10 [facility] 4.2.7.2.686 [phone] 009 2020-02-22 2020-02-22 Office Nain PAMCKENZIE 1.2.840.114 [id number] Univers 13:14:09 13:55:17 Visit Ankita REA 350.1.13.10 ity of IALTY 4.2.7.2.686 [facility] [phone] [address] DIABETES CLINIC 2020-02-22 2020-02-22 Outpatient Edwin GILLETTE [facility] [id number] Univers 13:30:00 13:30:00 ANKITA ity of [facility] 2019-12-21 2019-12-21 Office Nain [facility] 1.2.840.114 [id number] Univers 14:32:05 15:35:37 Visit Ankita REA 350.1.13.10 ity of IALTY 4.2.7.2.686 [facility] [phone] [address] DIABETES CLINIC 2019-12-21 2019-12-21 Outpatient Edwin GILLETTE [facility] [id number] Univers 14:15:00 14:15:00 ANKITA ity of [facility] 2019-12-09 2019-12-09 Office LORE [place] 1.2.840.114 [id number] Univers 09:41:32 11:12:00 Visit Ankita Adorno 350.1.13.10 ity of NATIONAL 4.2.7.2.686 Srinivasa as [phone] [facility] [address] 2019-12-09 2019-12-09 Outpatient Edwin GILLETTE [facility] [id number] Univers 09:45:00 09:45:00 ANKITA ity of [facility] 2019-12-09 2019-12-09 Orders Doctor RYDER 1.2.840.114 [id number] Univers 00:00:00 00:00:00 Only Unassigned, KLAUS 350.1.13.10 ity of [place] [facility] 4.2.7.2.686 Srinivasa as [phone] [place] [address] [place] 2019-11-17 2019-11-17 Office Nain [facility] 1.2.840.114 [id number] Univers 15:27:40 15:52:42 Visit Ankita REA 350.1.13.10 [facility] 4.2.7.2.[place] [phone] [facility] EMILI BUSTILLO [address] [place] [address] DIABETES CLINIC 2019-11-17 2019-11-17 Outpatient Edwin GILLETTE [facility] [id number] Univers 14:00:00 14:00:00 ANKITA [facility] 2019-09-27 2019-09-27 Outpatient Edwin HDZ [facility] [id number] Univers 08:45:00 08:45:00 MARYSE ity of [facility] 2019-08-10 2019-08-17 Inpatient [facility] [id number] [place] 00:00:00 00:00:00 LETI [address] 2019-08-09 2019-08-10 Emergency [facility] [id number] [address] [place] 00:00:00 00:00:[address] 2019-03-09 2019-03-09 Office LORE [place] 1.2.840.114 [id number] Univers 13:00:11 15:09:53 Visit Ankita Adorno 350.1.13.10 ity of NATIONAL 4.2.7.2.686 Srinivasa as BANK [phone] [facility] [address] 2019-03-09 2019-03-09 Orders Doctor RYDER 1.2.840.114 [id number] Univers 00:00:00 00:00:00 Only Unassigned, KLAUS 350.1.13.10 ity of [place] [facility] 4.2.7.2.686 Srinivasa as [phone] [address] 2019-02-24 2019-02-24 Office [employer], [facility] 1.2.840.114 [id number] Univers 13:47:27 14:42:55 Visit Ankita HEALTH 350.1.13.10 ity of [place]7.2.686 [place] [phone] [address] 2019-02-24 2019-02-24 Orders Doctor BRITNI 1.2.840.114 [id number] Univers 00:00:00 00:00:00 Only Unassigned, KLAUS 350.1.13.10 ity of [place] [facility] 4.2.7.2.686 Srinivasa as [phone] [address] 2019-02-04 2019-02-04 Office [facility] 1.2.840.114 [id number] Univers 14:22:06 15:20:58 Visit Maryse iApp4Me 350.1.13.10 i ty of [place] 4[place]2.7.2.686 [place] [phone] [address] 2019-02-04 2019-02-04 Orders Doctor BRITNI 1.2.840.114 [id number] Univers 00:00:00 00:00:00 Only Unassigned, KLAUS 350.1.13.10 ity of [place] [facility] 4.2.7.2.686 Srinivasa as [phone] [address] Results Test Description Test Time Test Comments Results Result Sour e Comments ETHANOL 2022-08-29 ALCOHOL<10mg/dL0 Universi ty of 21:50:22 08/29/2022 3:50 [facility]10 Mhfbswof72-106 Toxic>100 Depression of PRODUCTION TECHNICIAN>400 Fatalities Reported ACETAMINOPHEN 2022-08-29 21:48:09 Test Item Value Reference Range Interpretation Comme nts ACETAMINOP (test code = 0623318805) 10.0-30.0 L ELIANA (test code = ELIANA) Toxic: Greater than 200 ug/mL @ 4 hour post ingestion or greater than 50 ug/mL @ 12 hour post ingestion Lab Interpretation (test code = Abnormal 45882-3) [facility]20[facility]02 21:47:43 SALICYLATE<10mg/L08/29/2022 3:47 PM [facility] LABORATORYTherapeutic Range: ? Analgesic and Antipyretic Use ? 20- 100 mg/L ? ? Anti-Inflammatory Use ? 100-250 mg/L Toxic Range: ? Greater than 300 mg/LUnSt. Luke's Health [facility] Memorial LufkinCOMP. METABOLIC PANEL ([id number])2022-08-29 21:42:03 Test Item Value Reference Range Interpretation Comments NA (test code = 139 mmol/L 135-145 4139345486) K (test code = 4.3 mmol/L 3.5-5.0 4017059668) CL (test code = 107 mmol/L 98-108 8470209183) CO2 TOTAL (test code = 22 mmol/L 23-31 L 2039419525) AGAP (test code = 10 2-16 1716526859) BUN (test code = 10 mg/dL 7-23 0905980204) GLUCOSE (test code = 97 mg/dL 70-110 4509814517) CREATININE (test code = 0.86 mg/dL 0.60-1.25 8891769924) TOTAL BILI (test code = 0.6 mg/dL 0.1-1.0 6539924284) CALCIUM (test code = 9.5 mg/dL 8.6-10.6 7764754390) T PROTEIN (test code = 8.1 g/dL 6.3-8.2 2016753377) ALBUMIN (test code = 4.9 g/dL 3.5-5.0 0005248366) ALK PHOS (test code = 67 U/L 34-122 5276948075) ALTv (test code = 71 U/L 5-50 H 1742-6) AST(SGOT) (test code = 61 U/L 13-40 H 7155805487) eGFR (test code = 88.4 mL/min/1.73m2 2456997447) ELIANA (test code = ELIANA) Association of Glomerular Filtration Rate (GFR) and Staging of Kidney Disease* + --+ --+ ------+| GFR (mL/min/1.73 m2) ?| With Kidney Damage ?| ?Without Kidney Damage+ --------+ --------+ +| ?>90 ?| ?Stage one ?| ? Normal ?+ ---+ ---+ -------+| ?60-89 ?| ?Stage two ?| ? Decreased GFR ? + --+ --+ ------+| ?30-59 ?| ?Stage three ?| ? Stage three ? + --+ --+ ------+| ?15-29 ?| ?Stage four ? | ? Stage four ?+ ---+ ---+ -------+| ?<15 (or dialysis) ? ?| ?Stage five ? | ? Stage five ?+ ---+ ---+ -------+ *Each stage assumes the associated GFR level has been in effect for at least three months. ?Stages 1 to 5, with or without kidney disease, indicate chronic kidney disease. Notes: Determination of stages one and two (with eGFR >59mL/min/1.73 m2) requires estimation of kidney damage for at least three months as defined by structural or functional abnormalities of the kidney, manifested by either:Pathological abnormalities or Markers of kidney damage (including abnormalities in the composition of the blood or urine or abnormalities in imaging tests). Lab Interpretation Abnormal (test code = 09743-6) [facility] ChildrenCREATINE [id number] 21:41:43 Test Item Value Reference Range Interpretation Comments CK (test code = 1217301703) 69 U/L 33-194 Lab Interpretation (test code = Normal 15879-9) [facility] WITH [id number] 21:29:02 Test Item Value Reference Range Interpretation Comments WBC (test code = 8.82 See_Comment [Automated 8265-2) message] The sy stem which generated this result transmitted reference range : 4.20 - 10.70 10*3/?L. The reference range was not used to interpret this result as normal/abnormal . RBC (test code = 4.98 See_Comment [Automated 239-8) message] The sy stem which generated this result transmitted reference range : 4.26 - 5.52 10*6/?L. The reference range was not used to interpret this result as normal/abnormal . HGB (test code = 16.3 g/dL 12.2-16.4 718-7) HCT (test code = 46.4 % 38.4-49.3 4544-3) MCV (test code = 93.2 fL 81.7-95.6 787-2) MCH (test code = 32.7 pg 26.1-32.7 785-6) MCHC (test code = 35.1 g/dL 31.2-35.0 H 786-4) RDW-SD (test code = 47.0 fL 38.5-51.6 79681-7) RDW-CV (test code = 13.8 % 12.1-15.4 788-0) PLT (test code = 280 See_Comment [Automated 777-3) message] The sy stem which generated this result transmitted reference range : 150 - 328 10*3/ ?L. The reference r she was not used to interpret this result as normal/abnormal . MPV (test code = 8.2 fL 9.8-13.0 L 64120-7) NRBC/100 WBC (test 0.0 See_Comment [Automat ed code = 4791299274) message] The system which generated this result transmitted reference range : 0.0 - 10.0 /100 WBCs. The refer ence range was not u sed to interpret th is result as normal/abnormal . NRBC x10^3 (test code See_Comment [Auto mated = 0017176472) message] The s ystem which generated this result transmitted reference range : 10*3/?L. The reference range was not used to interpret this result as normal/abnormal . GRAN MAT (NEUT) % 66.6 % (test code = 770-8) IMM GRAN % (test code 0.60 % = 3593318077) LYMPH % (test code = 21.8 % 736-9) MONO % (test code = 6.9 % 5905-5) EOS % (test code = 3.3 % 713-8) BASO % (test code = 0.8 % 706-2) GRAN MAT x10^3(ANC) 5.88 10*3/uL 1.99-6.95 (test code = 7368000542) IMM GRAN x10^3 (test 0.05 10*3/uL 0.00-0.06 code = 0521633360) LYMPH x10^3 (test code 1.92 10*3/uL 1.09-3.23 = 731-0) MONO x10^3 (test code 0.61 10*3/uL 0.36-1.02 = 742-7) EOS x10^3 (test code = 0.29 10*3/uL 0.06-0.53 711-2) BASO x10^3 (test code 0.07 10*3/uL 0.01-0.09 = 704-7) Lab Interpretation Abnormal (test code = 38931-2) [facility] ChildrenLIPID [id number] 06:55:14 Test Item Value Reference Range Interpretation Comments CHOLESTEROL (test 334 MG/DL <200 H code = 2210) TRIGLYCERIDES (test 196 MG/DL <150 H code = 2232) HDL CHOLESTEROL (test 54 MG/DL >39 code = 2220) CALC LDL CHOL (test 242 MG/DL <100 H NOTE: C ALCULATED LDL code = 2237) IS BASED ON BETTY-BARTHOLOMEW METHOD WHICHINCLUDES ADJUSTABLE TRIGLYCERIDE:VL DL CHOLESTEROL RAT IO.THIS FACTOR VARIES B Y MEASURED TRIGLY CERIDE AND NON-HDLCHOL ESTEROL CONCENTRATIONS WITH INCREASED CALCU LATED LDL SEENIN HIGH ER TRIGLYCERIDE OR LOWER NON-HDL SPECIME NS. FOR MOREINFORMATION , SEE CLIENT ANNOUNCE MENT AT [email or web address] LDL/HDL 4.48 RATIO <3.55 H (test code = 2238) HEPATIC FUNCTION [id number] 06:55:14 Test Item Value Reference Range Interpretation Comments PROTEIN, TOTAL (test 7.8 G/DL 6.1-8.3 code = 9) ALBUMIN (test code = 4.9 G/DL 3.5-5.2 2200) BILIRUBIN, TOTAL 0.4 MG/DL See_Comment [Automated message] (test code = 2207) [employer] which generated this result transmitted ref erence range: <=1.2. T he reference range was not used to interpr et this result as normal/abnormal . BILIRUBIN, DIRECT 0.1 MG/DL 0.0-0.3 (test code = 2021) ALKALINE PHOSPHATASE 91 U/L 40-125 (test code = 2203) AST (test code = 30 U/L 9-50 2217) ALT (test code = 30 U/L 5-50 UNLESS OTH ERWISE 2218) INDICATED, ALL TESTING PERFORMED [facility] PATHOLOGY [facility], [facility]. [address] [place] [address] 78 4 LABORATORY DIRE CTOR: SAI ZUNIGA M.D. CLIA NUMBER [id number] [place] [id number] LIPID [id number] 04:02:48 Test Item Value Reference Range Interpretation Comments CHOLESTEROL (test 279 MG/DL <200 H code = 2210) TRIGLYCERIDES (test 433 MG/DL <150 H code = 2) HDL CHOLESTEROL 38 MG/DL >39 L (test code = 2219) CALC LDL CHOL (test (NOTE) MG/DL <100 UNABLE T O CALCULATE A code = 7) VALID LDL KATARINA STEROL WHEN THE TRIGLYCERIDEVAL UE IS GREATER THAN 40 0 MG/DL.UNABLE TO CALCULATE A ABIODUN ID LDL CHOLESTEROL WHE N THE TRIGLYCERIDEVAL UE IS GREATER THAN 40 0 MG/DL. NOTE: CALCULATE D LDL IS BASED ON BETTY -BARTHOLOMEW METHOD WHICHINC LUDES ADJUSTABLE TRIGLYCERIDE:VL DL CHOLESTEROL RAT IO.THIS FACTOR VARIES B Y MEASURED TRIGLY CERIDE AND NON-HDLCHOL ESTEROL CONCENTRATIONS WITH INCREASED CALCU LATED LDL SEENIN HIGH ER TRIGLYCERIDE OR LOWER NON-HDL SPECIME NS. FOR MOREINFORMATION , SEE CLIENT ANNOUNCE MENT AT [email or web address] CalcLDL-C RISK RATIO LDL/HDL (NOTE) RATIO <3.55 UNABLE T O CALCULATE (test code = 2237) COMPREHENSIVE METABOLIC [id number] 04:02:48 Test Item Value Reference Range Interpretation Comments GLUCOSE (test code = 88 MG/DL 70-99 2216) BUN (test code = 18 MG/DL 8-2207) CREATININE (test 0.96 MG/DL 0.80-1.40 code = 2214) eGFR (2020 CKD-EPI) 86 >60 (test code = 56247) ML/MIN/1.73 CALC BUN/CREAT (test 19 RATIO 6-28 code = 2235) SODIUM (test code = 136 MEQ/L 090-632 1615) POTASSIUM (test code 4.4 MEQ/L 3.5-5.4 = 2228) CHLORIDE (test code 100 MEQ/L 95-107 = 2215) CARBON DIOXIDE (test 21 MEQ/L 19-31 code = 2206) CALCIUM (test code = 9.8 MG/DL 8.5-10.5 2208) PROTEIN, TOTAL (test 7.0 G/DL 6.1-8.3 code = 2229) ALBUMIN (test code = 4.4 G/DL 3.5-5.2 2200) CALC GLOBULIN (test 2.6 G/DL 1.9-3.7 code = 2240) CALC A/G RATIO (test 1.7 RATIO 1.0-2.6 code = 2234) BILIRUBIN, TOTAL 0.2 MG/DL See_Comment [Automated message] (test code = 2207) [employer] which generated this result transmitted ref erence range: <=1.2. T he reference range was not used to int erpret this result as normal/abnormal . ALKALINE PHOSPHATASE 56 U/L 40-125 (test code = 2204) AST (test code = 20 U/L 9-50 2217) ALT (test code = 21 U/L 5-50 UNLESS OTH ERWISE 2218) INDICATED, ALL TESTING PERFORM ED ATCLINICAL PATH OLOGY LABORATORIES, [facility]. [address] [place] [id number] [place] [address] DIRECTOR: Stevan CASASIA NUMBER [id number] [facility] ACCREDITATION N O. [id number] LIPID PANEL [ADDED]2022-01-10 00:00:00 Test Item Value Reference Range Interpretation Comments CHOLESTEROL (test code = 2210) 279 MG/DL TRIGLYCERIDES (test code = 2232) 433 MG/DL HDL CHOLESTEROL (test code = 38 MG/DL 2219) CALC LDL CHOL (test code = 2237) (NOTE) MG/DL RISK RATIO LDL/HDL (test code = (NOTE) RATIO 2238) LIPID PANEL [ADDED]2022-01-10 00:00:00 Test Item Value Reference Range Interpretation Comments CHOLESTEROL (test code = 2210) 279 MG/DL TRIGLYCERIDES (test code = 2232) 433 MG/DL HDL CHOLESTEROL (test code = 38 MG/DL 2220) CALC LDL CHOL (test code = 2237) (NOTE) MG/DL RISK RATIO LDL/HDL (test code = (NOTE) RATIO 2238) COMPREHENSIVE METABOLIC PANEL [ADDED]2022-01-10 00:00:00 Test Item Value Reference Range Interpretation Comments GLUCOSE (test code = 2217) 88 MG/DL BUN (test code = 2208) 18 MG/DL CREATININE (test code = 2214) 0.96 MG/DL eGFR (2020 CKD-EPI) (test code 86 ML/MIN/1.73 = 89912) CALC BUN/CREAT (test code = 19 RATIO 2235) SODIUM (test code = 2231) 136 MEQ/L POTASSIUM (test code = 2228) 4.4 MEQ/L CHLORIDE (test code = 2215) 100 MEQ/L CARBON DIOXIDE (test code = 21 MEQ/L 2205) CALCIUM (test code = 2209) 9.8 MG/DL PROTEIN, TOTAL (test code = 7.0 G/DL 2228) ALBUMIN (test code = 2201) 4.4 G/DL CALC GLOBULIN (test code = 2.6 G/DL 2239) CALC A/G RATIO (test code = 1.7 RATIO 2234) BILIRUBIN, TOTAL (test code = 0.2 MG/DL 2206) ALKALINE PHOSPHATASE (test 56 U/L code = 2204) AST (test code = 2218) 20 U/L ALT (test code = 2219) 21 U/L COMPREHENSIVE METABOLIC PANEL [ADDED]2022-01-10 00:00:00 Test Item Value Reference Range Interpretation Comments GLUCOSE (test code = 2217) 88 MG/DL BUN (test code = 2208) 18 MG/DL CREATININE (test code = 2214) 0.96 MG/DL eGFR (2020 CKD-EPI) (test code 86 ML/MIN/1.73 = 24366) CALC BUN/CREAT (test code = 19 RATIO 2235) SODIUM (test code = 2231) 136 MEQ/L POTASSIUM (test code = 2228) 4.4 MEQ/L CHLORIDE (test code = 2215) 100 MEQ/L CARBON DIOXIDE (test code = 21 MEQ/L 220) CALCIUM (test code = 2209) 9.8 MG/DL PROTEIN, TOTAL (test code = 7.0 G/DL 2228) ALBUMIN (test code = 2201) 4.4 G/DL CALC GLOBULIN (test code = 2.6 G/DL 2240) CALC A/G RATIO (test code = 1.7 RATIO 2234) BILIRUBIN, TOTAL (test code = 0.2 MG/DL 2206) ALKALINE PHOSPHATASE (test 56 U/L code = 2204) AST (test code = 2218) 20 U/L ALT (test code = 2219) 21 U/L LIPID PANEL [ADDED]2022-01-10 00:00:00 Test Item Value Reference Range Interpretation Comments CHOLESTEROL (test code = 2210) 279 MG/DL TRIGLYCERIDES (test code = 2232) 433 MG/DL HDL CHOLESTEROL (test code = 38 MG/DL 2220) CALC LDL CHOL (test code = 2237) (NOTE) MG/DL RISK RATIO LDL/HDL (test code = (NOTE) RATIO 2238) LIPID PANEL [ADDED]2022-01-10 00:00:00 Test Item Value Reference Range Interpretation Comments CHOLESTEROL (test code = 2210) 279 MG/DL TRIGLYCERIDES (test code = 2232) 433 MG/DL HDL CHOLESTEROL (test code = 38 MG/DL 2220) CALC LDL CHOL (test code = 2237) (NOTE) MG/DL RISK RATIO LDL/HDL (test code = (NOTE) RATIO 2238) COMPREHENSIVE METABOLIC PANEL [ADDED]2022-01-10 00:00:00 Test Item Value Reference Range Interpretation Comments GLUCOSE (test code = 2217) 88 MG/DL BUN (test code = 2208) 18 MG/DL CREATININE (test code = 2214) 0.96 MG/DL eGFR (2020 CKD-EPI) (test code 86 ML/MIN/1.73 = 48702) CALC BUN/CREAT (test code = 19 RATIO 2235) SODIUM (test code = 2231) 136 MEQ/L POTASSIUM (test code = 2228) 4.4 MEQ/L CHLORIDE (test code = 2215) 100 MEQ/L CARBON DIOXIDE (test code = 21 MEQ/L 2205) CALCIUM (test code = 2209) 9.8 MG/DL PROTEIN, TOTAL (test code = 7.0 G/DL 2228) ALBUMIN (test code = 2201) 4.4 G/DL CALC GLOBULIN (test code = 2.6 G/DL 2240) CALC A/G RATIO (test code = 1.7 RATIO 2234) BILIRUBIN, TOTAL (test code = 0.2 MG/DL 2206) ALKALINE PHOSPHATASE (test 56 U/L code = 2204) AST (test code = 2218) 20 U/L ALT (test code = 2219) 21 U/L COMPREHENSIVE METABOLIC PANEL [ADDED]2022-01-10 00:00:00 Test Item Value Reference Range Interpretation Comments GLUCOSE (test code = 2217) 88 MG/DL BUN (test code = 2208) 18 MG/DL CREATININE (test code = 2214) 0.96 MG/DL eGFR (2020 CKD-EPI) (test code 86 ML/MIN/1.73 = 57741) CALC BUN/CREAT (test code = 19 RATIO 2235) SODIUM (test code = 2231) 136 MEQ/L POTASSIUM (test code = 2228) 4.4 MEQ/L CHLORIDE (test code = 2215) 100 MEQ/L CARBON DIOXIDE (test code = 21 MEQ/L 2205) CALCIUM (test code = 2209) 9.8 MG/DL PROTEIN, TOTAL (test code = 7.0 G/DL 2228) ALBUMIN (test code = 2201) 4.4 G/DL CALC GLOBULIN (test code = 2.6 G/DL 0) CALC A/G RATIO (test code = 1.7 RATIO 4) BILIRUBIN, TOTAL (test code = 0.2 MG/DL 2206) ALKALINE PHOSPHATASE (test 56 U/L code = 2204) AST (test code = 2218) 20 U/L ALT (test code = 2219) 21 U/L VALPROIC ACID (DEPAKENE)2021-05-21 08:05:00 Test Item Value Reference Range Interpretation Comments VALP ACID (test code = 95A) 62.4 ug/mL 50.0-100.0 THYROID PANEL/SCREEN (TSH)2021-05-15 07:30:00 Test Item Value Reference Range Interpretation Comments TSH (test code = A57) 2.580 uIU/mL 0.550-4.780 Ref Range Change Please note the (test code = REF change in reference RANGE) range [id number] 07:29:00 Test Item Value Reference Range Interpretation Comments FOLATE (test code = 28.7 ng/mL See_Comment [Automa stacy message] The A75) system which ge nerated this result tra nsmitted reference range : >=5.5. The reference r she was not used to int erpret this result as normal/abnormal . B12 [id number] 07:15:00 Test Item Value Reference Range Interpretation Comments VIT B12 (test code = A60) 470.0 pg/mL 211.0-911.0 LIPID [id number] 07:12:00 Test Item Value Reference Range Interpretation Comments CHOLESTROL (test code 182 mg/dL 140-200 = 44A) TRIGLYCERI (test code 87 mg/dL See_Comment [Auto mated message] = 42B) The system [employer] generated this result transmitted ref erence range: <=149. T he reference range was not used to int erpret this result as normal/abnormal . HDL (test code = 83D) 47.9 mg/dL 40.0-60.0 LDL (test code = 34B) 132 mg/dL See_Comment H [Auto mated message] The system [employer] generated this result transmitted ref erence range: <=99. Th e reference range was not used to int erpret this result as normal/abnormal . CHL/HDL (test code = 3.8 0.0-3.4 H CHR) [id number] 07:12:00 Test Item Value Reference Range Interpretation Comments MAGNESIUM (test code = 48A) 1.9 mg/dL 1.6-2.6 [id number] 07:11:00 Test Item Value Reference Range Interpretation Comments Hb A1C % (test code 4.6 % 3.8-6.4 = HBA) A1C % (test code = HbA1c (% ) A1C) Reference Range Normal <5.7 Prediabetes 5.7-6.4 Diabetic >=6.5 [id number] 07:10:00 Test Item Value Reference Range Interpretation Comments PREALBUMIN (test code = 08E) 20 mg/dL 10-40 CBC (INCLUDES AUTOMATED DIFFERENTIAL)2021-05-13 17:36:00 Test Item Value Reference Range Interpretation Comments WBC (test code = WBC) 11.3 10\\S\\3/uL 4.5-11.0 H RBC (test code = RBC) 3.85 10\\S\\6/uL 3.80-5.80 HGB (test code = HBG) 12.8 g/dL 14.0-18.0 L HCT (test code = HCT) 37.0 % 35.0-46.0 MCV (test code = MCV) 96.1 fL 80.0-94.0 H MCH (test code = MCH) 33.2 pg 27.0-31.0 H MCHC (test code = MCHC) 34.6 g/dL 32.0-36.0 RDW (test code = RDW) 12.4 % 11.5-14.5 PLT (test code = PLT) 250 10\\S\\3/uL 130-400 MPV (test code = MPV) 7.9 fL 9.4-12.4 L NEUTROP # (test code = NE#) 7.7 10\\S\\3/uL 2.0-8.0 LYMPH # (test code = LY#) 2.4 10\\S\\3/uL 1.2-4.0 MONOCYTE # (test code = MO#) 1.0 10\\S\\3/uL 0.0-1.1 EOSINOPH # (test code = EO#) 0.2 10\\S\\3/uL 0.0-0.7 BASOPHIL # (test code = BA#) 0.1 10\\S\\3/uL 0.0-0.3 IG # (test code = IG#) 0.06 10\\S\\3/uL 0.00-0.06 NRBC # (test code = NRBC#) 0.00 10\\S\\3/uL 0.00-0.01 NEUTROPH % (test code = NE%) 67.9 % 35.0-73.0 LYMPH % (test code = LY%) 20.7 % 20.0-55.0 MONO % (test code = MO%) 8.4 % 2.5-10.0 EOSINOPH % (test code = EO%) 1.9 % 0.0-5.0 BASOPHIL % (test code = BA%) 0.6 % 0.0-2.0 IG % (test code = IG%) 0.5 % 0.0-0.8 NRBC% (test code = NRBC%) 0.0 % 0.0-0.2 MANDIFF (test code = MDIFF) NO NO RBC MORPH (test code = RBCMOR) NORMAL XR CHEST 1 [id number] 16:05:32 [facility] WELDONB: 1955 Sex: MEXAM: XR CHEST 1 EWHISTORY: Altered mental statusCOMPARISON: NoneFINDINGS:The lungs are clear. No pleural effusion orpneumothorax. The cardiac silhouette is within normal limits. No acute osseous abnormalities.IMPRESSION:No acute cardiopulmonary disease.Electronically signed by: Riley Martini MD 05/13/2021 4:05 PM [facility] HEAD W/O [id number] 14:06:18 [facility] RANJAN WELDONAndrew: 1955 Sex: MEXAMINATION:CT HEAD W/O CONTRASTCLINICAL INDICATION:Male, 65 years old with Altered mental statusTECHNIQUE: Axial CT images from the skull base to the vertex without intravenous contrast. One or more of the following dose reduction techniques were used: Automated exposure control, adjustment of the mA and/or kV according to patient size, and/or iterative reconstruction. COMPARISON: NoneFINDINGS:Intracranial: No abnormal brain parenchymal density. No evidence of acute infarction, intracranial hemorrhage, mass or mass effect, or abnormal extra-axial fluid collection. The ventricles are normal in size, shape and position.Vascular: The larger dural venous sinuses are grossly normal. No significant atherosclerotic plaque.Sinuses: The visualized paranasal sinuses and mastoid air cells are predominantly clear. Bones: The osseous structures and orbits have no significant abnormalities. Soft tissue: No significant soft tiss ue abnormalities. IMPRESSION:No acute intracranial abnormality.Electronically signed by: Lynn Barron MD 05/13/2021 2:06 PM [facility] [id number] 2021-05-13 13:36:00 Test Item Value Reference Range Interpretation Comments LITHIUM (test code = 1.08 mmol/L 0.80-1.20 LI) LIH (test code = LIH) LIT HIUM THERAPEUTIC RANGE Acute [place]ber[place]: 1.0-1.5 mmol/L Dev-term control 0.6-1.2 mmol/L Toxic level: > 2.0 mmol/L SARS-CoV (RAPID ANTIGEN)2021-05-13 13:30:00 Test Item Value Reference Range Interpretation Comments SARS-CoV (ANTIGEN) NEGATIVE NEGATIVE (test code = COVAG) COVID AG (test This test has been code = COVAGC) marketed under the FDA Emergency Use Authorization (EUA) to meet challenges of the COVID-19 pandemic. The validation standards normally enforced by the FDA and the [employer] (CAP) are more stringent than those required for this test. Therefore, the result should be interpreted with caution and close attention to other clinical and epidemiological data COMPREHENSIVE METABOLIC [id number] 13:27:00 Test Item Value Reference Range Interpretation Comments GLUCOSE (test code 78 mg/dL 75-100 = 06D) SODIUM (test code 134 mmol/L 136-145 L = 01A) POTASSIUM (test 3.8 mmol/L 3.6-5.1 code = 01B) CHLORIDE (test 106 mmol/L 98-107 code = 04A) CO2 (test code = 20 mmol/L 20-31 02A) ANION GAP (test 11.8 mmol/L code = ANG) BUN (test code = 22 mg/dL 9-23 05D) CREATININE (test 1.0 mg/dL 0.7-1.3 code = 03E) GFR (test code = 77 See_Comment L [Automated GFR) mL/min/1.73m\\S\\2 message] Th e system which generated this result transmit stacy reference range : >=90. The reference range was not used to interpret this result as normal/abnormal . GFR 90 See_Comment [Automated BRITISH (test mL/min/1.73m\\S\\2 message] The code = GFRAA) system which generated this result transmit stacy reference range : >=90. The reference range was not used to interpret this result as normal/abnormal . EGFR (test code = eGFR BY EGFR) CKD-EPI CALCULATION IS NOT RECOMMENDED FOR PATIENTS UNDER 18 YEARS OF AGE. BUN/CREA (test 22 12-20 H code = BCR) CALCIUM (test code 10.1 mg/dL 8.3-10.6 = 09D) BILI TOTAL (test 1.0 mg/dL 0.2-1.0 code = 11A) PROTEIN (test code 7.0 g/dL 5.7-8.2 = 07D) ALBUMIN (test code 4.6 g/dL 3.2-4.8 = 08D) GLOBULIN (test 2.4 g/dL 1.5-3.8 code = GLB) ALB/GLOB (test 1.9 1.0-2.6 code = AGRR) ALK PHOS (test 71 IU/L 46-116 code = 35A) AST (test code = 30 IU/L See_Comment [Automated 30A) message] The system which generated this result transmit stacy reference range : <=33. The reference range was not used to interpret this result as normal/abnormal . ALT (test code = 10 IU/L 10-49 31A) [id number] 13:27:00 Test Item Value Reference Range Interpretation Comments ACETAMINPH (test code = <0.2 mg/dL 1.2-2.5 L 94M) Ref Range Change (test Please note the code = REF RANGE) change in reference range ALCOHOL BLOOD (ETOH)2021-05-13 13:27:00 Test Item Value Reference Range Interpretation Comments ETOH (test code = ETHANOL HALC) The result is to be used only for medical purposes ALCOHOL (test <10 mg/dL See_Comment [Automated me ssage] code = 56A) The system [employer] generated this result transmit stacy reference range : <=10. The refer ence range was not u sed to interpret th is result as normal/abnormal . [id number] 13:27:00 Test Item Value Reference Range Interpretation Comments SALICYLATE (test code = 94B) <3.0 mg/dL 15.0-30.0 L CARDIAC [id number] 13:26:00 Test Item Value Reference Range Interpretation Comments TROPONIN I (test code 9.65 pg/mL 0.00-45.20 = A84) Ref Range Change (test Please note the code = REF RANGE) change in reference range AMMONIA [id number] 13:04:00 Test Item Value Reference Range Interpretation Comments AMMONIA (test code = 54A) 32 umol/L 11-32 DRUGS OF [id number] 12:53:00 Test Item Value Reference Range Interpretation Comments DRUG SCRN (test code = URINE DRUG HDOA) SCREEN This is an unconfirmed screening result and should not be used for non-medical purposes CANNABINOD (test code POSITIVE NEGATIVE A = 88C) AMPHETAMINE (test code NEGATIVE NEGATIVE = 84A) BENZODIAZP (test code NEGATIVE NEGATIVE = 86A) BARBITURAT (test code NEGATIVE NEGATIVE = 85A) OPIATES (test code = NEGATIVE NEGATIVE 92B) COCAINE (test code = NEGATIVE NEGATIVE 87A) PHENCYCLID (test code NEGATIVE NEGATIVE = 66A) METHADONE (test code = NEGATIVE NEGATIVE 64A) DOAH (test code = DOAH.) URINE DRUGSCREEN Cut-off values are as follows: Cannabinoids 50 ng/mL Cocaine 300 ng/mL Amphetamines 1000 ng/mL Phencyclidine 25 ng/mL Benzodiazepines 200 ng.mL Methadone 300 ng/mL Barbiturates 200 ng/mL Opiates 300 ng/mL URINALYSIS WITH [id number] 12:51:00 Test Item Value Reference Range Interpretation Comments COLOR (test code = COLU) Yellow YELLOW CLARITY (test code = CLA) Clear CLEAR GLUCOSE UR (test code = UA GLUCOSE) Negative NEGATIVE BILI UR (test code = BILE) Negative NEGATIVE KETONES UR (test code = ZEKE) 2+ NEGATIVE A SP GRAVITY (test code = SPGR) 1.010 1.005-1.030 PH UR (test code = PH) 6.0 4.5-8.0 PROTEIN UR (test code = PU) Negative NEGATIVE UROBIL UR (test code = UROQ) 0.2 EU/dL 0.2-1.0 NITRITE UR (test code = NITRITE) Negative NEGATIVE BLOOD UR (test code = UA BLOOD) 1+ NEGATIVE A LEUK ES UR (test code = LEUK) Negative NEGATIVE WBC UR (test code = UWBC) 1 /HPF 0-3 RBC UR (test code = URBC) 1 /HPF 0-2 EPITH UR (test code = UEPC) NONE /LPF NONE BACTERIA UR (test code = UBACT) FEW /HPF NONE A CAST UR (test code = CAST) /LPF NONE CRYSTAL UR (test code = CRYU) / LPF NONE MUCUS UR (test code = MUC) / HPF NONE AMORPH UR (test code = SILVA) / HPF NONE TRICH UR (test code = UTRICH) /HPF NONE YEAST UR (test code = UY) /HPF NONE SPERM UR (test code = USPERM) /HPF NONE CBC (INCLUDES AUTOMATED DIFFERENTIAL)2021-05-13 12:47:00 Test Item Value Reference Range Interpretation Comments WBC (test code = WBC) 14.0 10\\S\\3/uL 4.5-11.0 H RBC (test code = RBC) 4.15 10\\S\\6/uL 3.80-5.80 HGB (test code = HBG) 13.8 g/dL 14.0-18.0 L HCT (test code = HCT) 40.0 % 35.0-46.0 MCV (test code = MCV) 96.4 fL 80.0-94.0 H MCH (test code = MCH) 33.3 pg 27.0-31.0 H MCHC (test code = MCHC) 34.5 g/dL 32.0-36.0 RDW (test code = RDW) 12.6 % 11.5-14.5 PLT (test code = PLT) 269 10\\S\\3/uL 130-400 MPV (test code = MPV) 9.8 fL 9.4-12.4 NEUTROP # (test code = NE#) 10.8 10\\S\\3/uL 2.0-8.0 H LYMPH # (test code = LY#) 2.1 10\\S\\3/uL 1.2-4.0 MONOCYTE # (test code = MO#) 0.9 10\\S\\3/uL 0.0-1.1 EOSINOPH # (test code = EO#) 0.2 10\\S\\3/uL 0.0-0.7 BASOPHIL # (test code = BA#) 0.1 10\\S\\3/uL 0.0-0.3 IG # (test code = IG#) 0.05 10\\S\\3/uL 0.00-0.06 NRBC # (test code = NRBC#) 0.00 10\\S\\3/uL 0.00-0.01 NEUTROPH % (test code = NE%) 76.5 % 35.0-73.0 H LYMPH % (test code = LY%) 14.8 % 20.0-55.0 L MONO % (test code = MO%) 6.6 % 2.5-10.0 EOSINOPH % (test code = EO%) 1.2 % 0.0-5.0 BASOPHIL % (test code = BA%) 0.5 % 0.0-2.0 IG % (test code = IG%) 0.4 % 0.0-0.8 NRBC% (test code = NRBC%) 0.0 % 0.0-0.2 MANDIFF (test code = MDIFF) NO NO RBC MORPH (test code = RBCMOR) NORMAL [id number] 17:15:00 Test Item Value Reference Range Interpretation Comments MAGNESIUM (test code = MAG) 1.9 mg/dl 1.8-2.4 N URINALYSIS [id number] 13:57:00 Test Item Value Reference Range Interpretation Comments UA COLOR (test code = LT YELLOW COLU) UA APPEARANCE (test code CLEAR = APPU) UA GLUCOSE DIPSTICK (test NORMAL mg/dl NORMAL code = DGLUU) UA BILIRUBIN DIPSTICK NEGATIVE mg/dL NEGATIVE (test code = BILU) UA KETONE DIPSTICK (test NEGATIVE mg/dl NEGATIVE code = KETU) UA SPECIFIC GRAVITY (test 1.010 1.000-1.030 code = SGU) UA BLOOD DIPSTICK (test 25 Jere/micL Jere/micL NEGATIVE A code = SASHA) UA PH DIPSTICK (test code 7.0 5.0-9.0 = GARRETT) UA PROTEIN DIPSTICK (test NEGATIVE mg/dl NEGATIVE code = PROU) UA UROBILINIOGEN DIPSTICK NORMAL mg/dl NORMAL (test code = URO) UA NITRITE DIPSTICK (test NEGATIVE NEGATIVE code = MORRO) UA LEUKOCYTE ESTERASE NEGATIVE Carlee/micL NEGATIVE DIPSTICK (test code = LEUU) UA WBC (test code = WBCU) NONE SEEN WBC/HPF NONE UA RBC (test code = RBCU) 3-5 RBC/HPF 0-3 UA EPITHELIAL CELLS (test 0-3 EPI/HPF 0-3 code = EPIU) UA BACTERIA (test code = TRACE NONE BACU) URINALYSIS [id number] 13:53:00 Test Item Value Reference Range Interpretation Comments UA COLOR (test code = LT YELLOW COLU) UA APPEARANCE (test code CLEAR = APPU) UA GLUCOSE DIPSTICK (test NORMAL mg/dl NORMAL code = DGLUU) UA BILIRUBIN DIPSTICK NEGATIVE mg/dL NEGATIVE (test code = BILU) UA KETONE DIPSTICK (test NEGATIVE mg/dl NEGATIVE code = KETU) UA SPECIFIC GRAVITY (test 1.010 1.000-1.030 code = SGU) UA BLOOD DIPSTICK (test 25 Jere/micL Jere/micL NEGATIVE A code = SASHA) UA PH DIPSTICK (test code 7.0 5.0-9.0 = GARRETT) UA PROTEIN DIPSTICK (test NEGATIVE mg/dl NEGATIVE code = PROU) UA UROBILINIOGEN DIPSTICK NORMAL mg/dl NORMAL (test code = URO) UA NITRITE DIPSTICK (test NEGATIVE NEGATIVE code = MORRO) UA LEUKOCYTE ESTERASE NEGATIVE Carlee/micL NEGATIVE DIPSTICK (test code = LEUU) UA WBC (test code = WBCU) WBC/HPF NONE UA RBC (test code = RBCU) RBC/HPF 0-3 UA EPITHELIAL CELLS (test EPI/HPF 0-3 code = EPIU) UA BACTERIA (test code = NONE BACU) DRUGS OF ABUSE SCREEN [id number] 13:35:00 Test Item Value Reference Interpretation Comments Range URN COCAINE (test NEGATIVE NEGATIVE Cocaine cu t-off code = COCAURN) concentratio n: 300 ng/mL URN CANNABINOIDS POSITIVE NEGATIVE A UNCONFIRMED INITIAL (test code = SCREENING ONLY; SUGGEST CANNABURN) ADDITIONALCONFI RMATORY TESTING.Cannabi noids cut-off concent ration: 50 ng/mL URN AMPHETAMINE NEGATIVE NEGATIVE Amphetamine cut-off (test code = concentration: 1000 ng/mL AMPHETURN) URN BARBITURATE NEGATIVE NEGATIVE Barbiturate cut-off (test code = concentration: 200 ng/mL BARBITURN) URN BENZODIAZEPINE NEGATIVE NEGATIVE Benzodiaz epine cut-off (test code = concentration: 200 ng/mL BENZOURN) URN OPIATES (test NEGATIVE NEGATIVE Opiates cu t-off code = OPIATURN) concentrati on: 2000 ng/mL URN PHENCYCLIDINE NEGATIVE NEGATIVE Phencyclid ine(PCP) cut-off (PCP) (test code = concentra tion: 25 ng/ml PHENCURN) URN METHADONE (test NEGATIVE NEGATIVE Methadon e cut-off code = METHAURN) concentrati on: 300 ng/mL - XR CHEST 1 [id number] 12:09:00 [facility] 1955 Sex: M FAX: Maricruz Hill MD [phone] [place]: St: PRE FAX: Parul Canales MD [phone] --------- Name: SAI WELDON [facility] : 1955 Age/S: 65/M [address] [facility] Unit #: [id number] Loc: E.EXP [place], [place] Phys: [place] [address] Acct: [id number] Dis Date: Status: PRE ER PHONE #: [phone] Exam Date: 12/21/2020 1152 FAX #: [phone] Reason: AMS/SOB EXAMS: CPT CODE: [id number] CHEST 1 V [id number] EXAM: XR Chest 1 View INDICATION: AMS/SOB LOCATION CODE: B2 COMPARISON: Chest radiograph dated 12/20/2020 TECHNIQUE: Frontal view of the chest was obtained. FINDINGS: The lungs are clear. There is no pleural effusion or pneumothorax. The cardiomediastinal silhouette is unchanged. No acute osseous abnormality is identified. IMPRESSION: No acute cardiopulmonary abnormality. at 1209 Reported and signed by:Dhara Anderson M.D. CC: Maricruz Hill MD; Parul Mcdaniel MD Technologist: MARILYNN CROW Trnscrd Date/Time/By: 12/21/2020 (7299) : By: [email or web address] PAGE 1 Signed Report FAX: Maricruz Hill MD [phone] [place]: St: PRE FAX: Parul Canales MD [phone] Name: SAI WELDON [facility] : 1955ge/S: 65/M [address] [facility] Unit #: [id number] Loc: E.EXP [place], [place] Phys: [place] [id number] Acct: [id number] Dis Date: Status: PRE ER PHONE #: [phone] Exam Date: 12/21 1152 FAX #: [phone] Reason: AMS/SOB EXAMS: CPT CODE: [id number] XR CHEST 1 V 42206 <Continued> Orig Print D/T: S: 12/21/2020 (6028) PAGE 2 Signed ReportBASIC METABOLIC [id number] 12:04:00 Test Item Value Reference Range Interpretation Comments SODIUM (test code = NA) 138 mmol/l 134.0-147.0 N POTASSIUM (test code = K) 4.3 mmol/L 3.6-5.2 N CHLORIDE (test code = CL) 104 mmol/l 98.0-107.0 N CARBON DIOXIDE (test code = CO2) 25.2 mmol/l 21.0-33.0 N ANION GAP (test code = GAP) 13.1 0-20 N GLUCOSE (test code = GLU) 122 mg/dl 70.0-110.0 H BLOOD UREA NITROGEN (test code = 15 mg/dl 7.0-18.0 N BUN) CREATININE (test code = CREAT) 1.14 mg/dL 0.60-1.30 N GFR NON BLACK (test code = 68 mL/min 80-90 L GFRNONBLACK) GFR BLACK (test code = GFRBLACK) 82 mL/min 97-109 L CALCIUM (test code = CA) 8.6 mg/dl 8.0-10.5 N HEPATIC FUNCTION PANEL [id number] 12:04:00 Test Item Value Reference Range Interpretation Comments TOTAL PROTEIN (test code = PROT) 7.7 gm/dL 6.4-8.2 N ALBUMIN (test code = ALB) 4.0 gm/dl 3.2-4.7 N BILIRUBIN TOTAL (test code = BILT) 0.4 mg/dl 0.0-1.0 N BILIRUBIN DIRECT (test code = 0.1 mg/dl 0.0-0.3 N BILD) SGOT/AST (test code = AST) 21 Units/L 15-37 N SGPT/ALT (test code = ALT) 29 Units/L 12.0-78.0 N ALKALINE PHOSPHATASE TOTAL (test 72 Units/L 50.0-136.0 N code = ALKP) [id number] 12:04:00 Test Item Value Reference Range Interpretation Comments TROPONIN-I (test <0.02 NG/ML 0.00-0.06 N REFERENCE R SHE code = TROPI) TROPONIN I HEA LTHY INDIVIDUALS: <0 .06 ng/mL R/O ISCHE PAMELA: 0.07 - 0.60 ng/ mL CUT-OFF RANGE F OR AMI: 0.60 - 1.5 ng/m L [id number] 12:04:00 Test Item Value Reference Range Interpretation Comments ACETAMINOPHEN (test <2.0 mcg/ml 10.0-30.0 L Result i s in code = ACET) Microgram per milliliter. [id number] 12:04:00 Test Item Value Reference Range Interpretation Comments SALICYLATE (test code = PETTY) 2.4 mg/dl 2.8-20.0 L [id number] 12:04:00 Test Item Value Reference Range Interpretation Comments ALCOHOL (test code 0.00 gm/dL 0.00-0.00 N ETHYL ALC OHOL VALUES - = ALC) INTERPRETATION: 0.050 GM/DL - NOT INT OXICATED 0.100 GM/DL - INTOXICATED 0.3 50-0.450 GM/DL - SEVEREL Y INTOXICATED 0.5 50 GM/DL- FATAL INTOXICAT ION - CT HEAD/BRAIN W/O [id number] 12:03:00 [facility] : 1955 Sex: M FAX: Maricruz Hill MD [phone] [place]: St: PRE FAX: Parul Canales MD [phone] --------- Name: SAI WELDON [facility] : 1955 Age/S: 65/M [address] [facility] Unit: [id number] Loc: E.EXP [place], [place]: [place] [address] Acct: [id number] Dis Date: Status: PRE ER PHONE #: [phone] Exam Date: 12/21/2020 1153 FAX #: [phone] Reason: AMS EXAMS: CPT CODE: [id number] CT HEAD/BRAIN W/O CONT 68415 CLINICAL HISTORY: AMS. CT brain, unenhanced. Reformatted sagittal and coronalimages. COMPARISON: December 20, 2020. Automated exposure control, iterative reconstruction technique, and/or adjustment of mA and/or kV according to patient's size was utilized for optimum radiation dose reduction. An unenhanced study of the brain was performed. Cortical pattern shows prominent atrophy with prominent CSF spaces over the convexity. Hypodensity in white matter suggests chronic microvascular ischemia changes. No focal edema or cortical hemorrhage can be documented in the interval.. No hemorrhage, mass effect, or findings of CVA can be seen. No evidence of ventricular shift. The posterior fossa structures appear to be intact. Bone window settings do not show any evidence of skull fracture. Visualized sinuses appear to be clear. . IMPRESSION: No acute appearing intracranial abnormality.Stable appearing exam from yesterday. Moderate diffuse cortical atrophy. Mild chronic microvascular ischemia changes Location: [id number] Reported and signed by: Mikel Arteaga MD PAGE 1 Signed Report (CONTINUED) FAX: Maricruz Hill MD [phone] [place]: St: PRE FAX: Parul Canales MD [phone] Name: SAI WELDON [facility] : 1955 Age/S: 65/M [address] [facility] Unit: [id number] Loc: E.EXP [place], [place]: [place] [address] Acct: [id number] Dis Date: Status: PRE ER PHONE #: [phone] Exam Date: 12/21/2020 1153 FAX #: [phone] Reason: AMS EXAMS: CPT CODE: [id number] CT HEAD/BRAIN W/O CONT 69034 <Continued> CC: Maricruz Hill MD; Parul Mcdaniel MD Technologist: SHARA Millervanazia Dt/Tm: 12/21/2020 (0871) [email or web address] Orig Print D/T: S: 12/21/2020 (1456 PAGE 2 Signed ReportBASIC METABOLIC PANEL 2020-12-21 11:59:00 Test Item Value Reference Range Interpretation Comments SODIUM (test code = NA) 138 mmol/l 134.0-147.0 N POTASSIUM (test code = K) 4.3 mmol/L 3.6-5.2 N CHLORIDE (test code = CL) 104 mmol/l 98.0-107.0 N CARBON DIOXIDE (test code = CO2) 25.2 mmol/l 21.0-33.0 N ANION GAP (test code = GAP) 13.1 0-20 N GLUCOSE (test code = GLU) mg/dl 70.0-110.0 BLOOD UREA NITROGEN (test code = mg/dl 7.0-18.0 BUN) CREATININE (test code = CREAT) mg/dL 0.60-1.30 GFR NON BLACK (test code = mL/min 80-90 GFRNONBLACK) GFR BLACK (test code = GFRBLACK) mL/min 97-109 CALCIUM (test code = CA) mg/dl 8.0-10.5 HEPATIC FUNCTION PANEL [id number] 11:59:00 Test Item Value Reference Range Interpretation Comments TOTAL PROTEIN (test code = PROT) gm/dL 6.4-8.2 ALBUMIN (test code = ALB) gm/dl 3.2-4.7 BILIRUBIN TOTAL (test code = BILT) mg/dl 0.0-1.0 BILIRUBIN DIRECT (test code = BILD) mg/dl 0.0-0.3 SGOT/AST (test code = AST) Units/L 15-37 SGPT/ALT (test code = ALT) Units/L 12.0-78.0 ALKALINE PHOSPHATASE TOTAL (test Units/L 50.0-136.0 code = ALKP) [id number] 11:59:00 Test Item Value Reference Range Interpretation Comments TROPONIN-I (test code = TROPI) NG/ML 0.00-0.06 [id number] 11:59:00 Test Item Value Reference Range Interpretation Comments ACETAMINOPHEN (test code = ACET) mcg/ml 10.0-30.0 [id number] 11:59:00 Test Item Value Reference Range Interpretation Comments SALICYLATE (test code = PETTY) mg/dl 2.8-20.0 [id number] 11:59:00 Test Item Value Reference Range Interpretation Comments ALCOHOL (test code = ALC) gm/dL 0.00-0.00 CBC W/AUTO [id number] 11:47:00 Test Item Value Reference Range Interpretation Comments WHITE BLOOD CELL (test code = 10.6 K/mm3 4.5-11.0 N WBC) RED BLOOD CELL (test code = 3.74 M/mm3 4.40-5.90 L RBC) HEMOGLOBIN (test code = HGB) 12.7 gm/dL 13.0-17.0 L HEMATOCRIT (test code = HCT) 39.0 % 36.0-48.0 N MEAN CELL VOLUME (test code = 104.3 UM3 80.0-94.0 H MCV) MEAN CELL HGB (test code = MCH) 34.0 UUG 25.5-32.5 H MEAN CELL HGB CONCETRATION 32.6 gm/dL 29.0-35.5 N (test code = MCHC) RED CELL DISTRIBUTION WIDTH 12.7 % 11.5-15.0 N (test code = RDW) RED CELL DISTRIBUTION WIDTH SD 48.7 fL 34.8-50.2 N (test code = RDW-SD) PLATELET COUNT (test code = 325 K/mm3 150-400 N PLT) MEAN PLATELET VOLUME (test code 7.8 fl 7.4-10.4 N = MPV) NEUTROPHIL % (test code = NT%) 75.8 % 49.0-76.0 N IMMATURE GRANULOCYTE % (test 0.4 % 0.0-0.4 N code = IG%) LYMPHOCYTE % (test code = LY%) 13.5 % 23.0-38.0 L MONOCYTE % (test code = MO%) 7.2 % 1.0-10.0 N EOSINOPHIL % (test code = EO%) 2.2 % 1.0-5.0 N BASOPHIL % (test code = BA%) 0.9 % 0.0-1.0 N NUCLEATED RBC % (test code = 0.0 % 0.0-0.1 N NRBC%) NEUTROPHIL # (test code = NT#) 8.0 K/mm3 2.4-6.3 H IMMATURE GRANULOCYTE # (test 0.04 x10 3/uL 0.00-0.07 N code = IG#) LYMPHOCYTE # (test code = LY#) 1.4 K/mm3 1.2-4.0 N MONOCYTE # (test code = MO#) 0.8 K/mm3 0.0-0.6 H EOSINOPHIL # (test code = EO#) 0.2 K/MM3 0.0-0.7 N BASOPHIL # (test code = BA#) 0.1 K/mm3 0.0-0.2 N NUCLEATED RBC # (test code = 0.00 X10 3uL 0.00-0.01 N NRBC#) DRUGS OF ABUSE SCREEN [id number] 23:00:00 Test Item Value Reference Interpretation Comments Range URN COCAINE (test NEGATIVE NEGATIVE Cocaine cu t-off code = COCAURN) concentratio n: 300 ng/mL URN CANNABINOIDS POSITIVE NEGATIVE A UNCONFIRMED INITIAL (test code = SCREENING ONLY; SUGGEST CANNABURN) ADDITIONALCONFI RMATORY TESTING.Cannabi noids cut-off concent ration: 50 ng/mL URN AMPHETAMINE NEGATIVE NEGATIVE Amphetamine cut-off (test code = concentration: 1000 ng/mL AMPHETURN) URN BARBITURATE NEGATIVE NEGATIVE Barbiturate cut-off (test code = concentration: 200 ng/mL BARBITURN) URN BENZODIAZEPINE NEGATIVE NEGATIVE Benzodiaz epine cut-off (test code = concentration: 200 ng/mL BENZOURN) URN OPIATES (test NEGATIVE NEGATIVE Opiates cu t-off code = OPIATURN) concentrati on: 2000 ng/mL URN PHENCYCLIDINE NEGATIVE NEGATIVE Phencyclid ine(PCP) cut-off (PCP) (test code = concentra tion: 25 ng/ml PHENCURN) URN METHADONE (test NEGATIVE NEGATIVE Methadon e cut-off code = METHAURN) concentrati on: 300 ng/mL BASIC METABOLIC [id number] 22:41:00 Test Item Value Reference Range Interpretation Comments SODIUM (test code = NA) 133 mmol/l 134.0-147.0 L POTASSIUM (test code = K) 4.0 mmol/L 3.6-5.2 N CHLORIDE (test code = CL) 100 mmol/l 98.0-107.0 N CARBON DIOXIDE (test code = CO2) 22.9 mmol/l 21.0-33.0 N ANION GAP (test code = GAP) 12.0 0-20 N GLUCOSE (test code = GLU) 87 mg/dl 70.0-110.0 N BLOOD UREA NITROGEN (test code = 21 mg/dl 7.0-18.0 H BUN) CREATININE (test code = CREAT) 0.94 mg/dL 0.60-1.30 N GFR NON BLACK (test code = 85 mL/min 80-90 N GFRNONBLACK) GFR BLACK (test code = GFRBLACK) 103 mL/min 97-109 N CALCIUM (test code = CA) 8.6 mg/dl 8.0-10.5 N HEPATIC FUNCTION PANEL [id number] 22:41:00 Test Item Value Reference Range Interpretation Comments TOTAL PROTEIN (test code = PROT) 7.8 GM/DL 6.0-8.1 N ALBUMIN (test code = ALB) 4.0 gm/dL 3.2-4.7 N BILIRUBIN TOTAL (test code = BILT) 0.2 mg/dl 0.0-1.0 N BILIRUBIN DIRECT (test code = 0.1 mg/dl 0.0-0.3 N BILD) SGOT/AST (test code = AST) 23 Units/L 15-37 N SGPT/ALT (test code = ALT) 30 Units/L 12.0-78.0 N ALKALINE PHOSPHATASE TOTAL (test 66 Units/L 50.0-136.0 N code = ALKP) CREATINE KINASE (CK)[id number] 22:41:00 Test Item Value Reference Range Interpretation Comments CREATINE KINASE (CK) (test code = 117 Units/L 35-232 N CK) [id number] 22:41:00 Test Item Value Reference Range Interpretation Comments LIPASE (test code = LIP) 147 Units/L 65.0-230.0 N [id number] 22:41:00 Test Item Value Reference Range Interpretation Comments MAGNESIUM (test code = MAG) 2.2 mg/dl 1.8-2.4 N [id number] 22:41:00 Test Item Value Reference Range Interpretation Comments TROPONIN-I (test <0.02 NG/ML 0.00-0.06 N REFERENCE R SHE code = TROPI) TROPONIN I HEA LTHY INDIVIDUALS: <0 .06 ng/mL R/O ISCHE PAMELA: 0.07 - 0.60 ng/ mL CUT-OFF RANGE F OR AMI: 0.60 - 1.5 ng/m L [id number] 22:35:00 Test Item Value Reference Range Interpretation Comments ALCOHOL (test code 0.00 gm/dL 0.00-0.00 N ETHYL ALC OHOL VALUES - = ALC) INTERPRETATION: 0.050 GM/DL - NOT INT OXICATED 0.100 GM/DL - INTOXICATED 0.3 50-0.450 GM/DL - SEVEREL Y INTOXICATED 0.5 50 GM/DL- FATAL INTOXICAT ION CBC W/AUTO [id number] 22:32:00 Test Item Value Reference Range Interpretation Comments WHITE BLOOD CELL (test code = 12.3 K/mm3 4.5-11.0 H WBC) RED BLOOD CELL (test code = 3.94 M/mm3 4.40-5.90 L RBC) HEMOGLOBIN (test code = HGB) 13.2 gm/dL 13.0-17.0 N HEMATOCRIT (test code = HCT) 40.5 % 36.0-48.0 N MEAN CELL VOLUME (test code = 102.8 UM3 80.0-94.0 H MCV) MEAN CELL HGB (test code = MCH) 33.5 UUG 25.5-32.5 H MEAN CELL HGB CONCETRATION 32.6 gm/dL 29.0-35.5 N (test code = MCHC) RED CELL DISTRIBUTION WIDTH 12.4 % 11.5-15.0 N (test code = RDW) RED CELL DISTRIBUTION WIDTH SD 47.0 fL 34.8-50.2 N (test code = RDW-SD) PLATELET COUNT (test code = 333 K/mm3 150-400 N PLT) MEAN PLATELET VOLUME (test code 8.0 fl 7.4-10.4 N = MPV) NEUTROPHIL % (test code = NT%) 67.7 % 49.0-76.0 N IMMATURE GRANULOCYTE % (test 0.4 % 0.0-0.4 N code = IG%) LYMPHOCYTE % (test code = LY%) 19.7 % 23.0-38.0 L MONOCYTE % (test code = MO%) 8.3 % 1.0-10.0 N EOSINOPHIL % (test code = EO%) 3.2 % 1.0-5.0 N BASOPHIL % (test code = BA%) 0.7 % 0.0-1.0 N NUCLEATED RBC % (test code = 0.0 % 0.0-0.1 N NRBC%) NEUTROPHIL # (test code = NT#) 8.3 K/mm3 2.4-6.3 H IMMATURE GRANULOCYTE # (test 0.05 x10 3/uL 0.00-0.07 N code = IG#) LYMPHOCYTE # (test code = LY#) 2.4 K/mm3 1.2-4.0 N MONOCYTE # (test code = MO#) 1.0 K/mm3 0.0-0.6 H EOSINOPHIL # (test code = EO#) 0.4 K/MM3 0.0-0.7 N BASOPHIL # (test code = BA#) 0.1 K/mm3 0.0-0.2 N NUCLEATED RBC # (test code = 0.00 X10 3uL 0.00-0.01 N NRBC#) PROTHROMBIN [id number] 22:32:00 Test Item Value Reference Range Interpretation Comments PROTHROMBIN TIME 11.6 SECONDS 9.9-12.8 N PATIENT (test code = PTP) INTERNATIONAL NORMAL 1.0 0.89-1.14 N THE INR IS TO BE USED RATIO (test code = ONLY FOR MONITORING INR) ORAL ANTICOAGULANTTH ERAPY. THE FOLLOWING A RE SUGGESTED RANGE S [facility] LE[facility]:PHILIPP CATION INR VALUEPROPHY LAXIS OF VENOUS THROM BOSIS (ORTHOPEDIC CAROLE ERICK) 2.0 - 3.0PROPHY LAXIS OF VENOUS THROM BOSIS (OTHER THAN HIG H-RISK SURGERY) 2.0 - 3.0TREATMENT OF DEEP VEIN THROMBOSIS OR PULMONARY EMBOL ISM 2.0 - 3.0PREVENTION OF SYSTEMIC EMBOLI SM TISSUE HEART VA LVES 2.0 - 3.0 ACUTE MYOCARDIAL INFA RCTION (TO PREVENT SYS TEMIC EMBOLISM) 2.0 - 3.0 ACUTE MYOCARDIA L INFARCTION (TO PREVENT RECURRENT INFAR CT) 2.5 - 3.0 VALVULAR HEART DISEASE 2.0 - 3 .0 ATRIAL FIBRILAT ION 2.0 - 3.0BILEAFLET MECHANICAL VALV E IN AORTIC POSITION 2.0 - 3.0MECHANICAL PROSTHETIC VALV ES (HIGH RISK) 2.5 - 3.5PRESENCE OF LUPUS ANTICOAGULANT O R ANTIPHOSPHOLIPI D ANTIBODIES 2.5 - 3.5 THROMBOPLASTIN TIME [id number] 22:32:00 Test Item Value Reference Range Interpretation Comments THROMBOPLASTIN TIME 31.50 SECONDS 25.86-36.07 N [facility] PARTIAL (test code = Therape utic Range - PTT) APTT of 55.8-85 .4 secondscorrelat es with plasma heparin concentration o f 0.2-0.4 u/mL Ne w range effective - UA RFLX MICR CULT IF [id number] 21:44:00 Test Item Value Reference Range Interpretation Comments UA GLUCOSE DIPSTICK NORMAL mg/dl NORMAL (test code = DGLUU) UA BILIRUBIN DIPSTICK NEGATIVE mg/dL NEGATIVE (test code = BILU) UA KETONE DIPSTICK NEGATIVE mg/dl NEGATIVE (test code = KETU) UA SPECIFIC GRAVITY 1.010 1.000-1.030 (test code = SGU) UA BLOOD DIPSTICK 10 Jere/micL NEGATIVE A (test code = SASHA) Jere/micL UA PH DIPSTICK (test 6.5 5.0-9.0 code = GARRETT) UA PROTEIN DIPSTICK NEGATIVE mg/dl NEGATIVE (test code = PROU) UA UROBILINIOGEN NORMAL mg/dl NORMAL DIPSTICK (test code = URO) UA NITRITE DIPSTICK NEGATIVE NEGATIVE (test code = MORRO) UA LEUKOCYTE ESTERASE NEGATIVE NEGATIVE DIPSTICK (test code = Carlee/micL LEUU) UA WBC (test code = 0-3 WBC/HPF NONE WBCU) UA SQUAMOUS CELLS 0-2 #/hpf (test code = SQU) UA CULTURE NEEDED? NO, WBC<10 Culture Chk Criteria not (test code = UACULT) Criteria met, Ur ine Culture cancelled. Indication for culture: RiskForSepsis-no oth srcSpecimen Description: CLEAN CATCHUA RFLX MICR CULT IF [id number] 21:38:00 Test Item Value Reference Range Interpretation Comments UA GLUCOSE DIPSTICK (test NORMAL mg/dl NORMAL code = DGLUU) UA BILIRUBIN DIPSTICK NEGATIVE mg/dL NEGATIVE (test code = BILU) UA KETONE DIPSTICK (test NEGATIVE mg/dl NEGATIVE code = KETU) UA SPECIFIC GRAVITY (test 1.010 1.000-1.030 code = SGU) UA BLOOD DIPSTICK (test 10 Jere/micL Jere/micL NEGATIVE A code = SASHA) UA PH DIPSTICK (test code 6.5 5.0-9.0 = GARRETT) UA PROTEIN DIPSTICK (test NEGATIVE mg/dl NEGATIVE code = PROU) UA UROBILINIOGEN DIPSTICK NORMAL mg/dl NORMAL (test code = URO) UA NITRITE DIPSTICK (test NEGATIVE NEGATIVE code = MORRO) UA LEUKOCYTE ESTERASE NEGATIVE Carlee/micL NEGATIVE DIPSTICK (test code = LEUU) UA WBC (test code = WBCU) WBC/HPF NONE UA CULTURE NEEDED? (test Criteria Culture Chk code = UACULT) Indication for culture: RiskForSepsis-no oth srcSpecimen Description: CLEAN CATCH- XR CHEST 1 [id number] 21:12:00 [facility] : 1955 Sex: M FAX: Leonardo Boyd Jr [phone] [place]: St: PRE FAX: Rolan Rubalcava MD Name: SAI WELDON [facility] : 1955 Age/S: 65/M [address] [facility] Unit #: [id number] Loc: E.ERS2 [place], [place]: [place] [address] Acct: [id number] Dis Date: Status: PRE ER PHONE #: [phone] Date: 12/20/20202056 FAX #: [phone] Reason: weakness EXAMS: CPT CODE: [id number] XR CHEST 1 V 24860 Site ID: [id number] HISTORY: Weakness COMPARISON: Chest x-ray November 27, 2020 FINDINGS: The lungs areclear and normally expanded. The heart and pulmonary vasculature is normal. Osseous structures are unremarkable. IMPRESSION: Negative chest x-ray. at 2111 Reported and signed by: David Resendiz M.D. CC: Leonardo Jarrett Jr, MD; Rolan Rubalcava MD Technologist: Lauren Boucher [facility] Date/Time/By: 12/20/2020 (2111) : By: [email or web address] PAGE 1 SignedReport FAX: Leonardo Boyd Jr [phone] [place]: St: PRE FAX: Rolan Rubalcava MD Name: FATEMEHSAI [facility] : 1955 Age/S: 65/M [address] [facility] Unit #: [id number] Loc: E.[facility] [place], [place]: [place] [address] Acct: [id number] Dis Date: Status: PRE ER PHONE #: [phone] Exam Date: 12/20/20202056 FAX #: [phone] Reason: weakness EXAMS: CPT CODE: [id number] XR CHEST 1 V 35150 <Continued> Orig Print D/T: S: 12/20/2020 (9556) PAGE 2 Signed Report- CT HEAD/BRAIN W/O [id number] 21:11:00 [facility] : 1955 Sex: M FAX: Leonardo Boyd Jr [phone] [place]: St: PRE FAX: Rolan Rubalcava MD [facility] 1955 Age/S: 65/M [address] [facility] Unit: [id number] Loc: [address] Phys: [place] [address] Acct: [id number] Dis Date: Status: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 = COCAURN) concentratio n: 300 ng/mL URN CANNABINOIDS POSITIVE NEGATIVE A UNCONFIRMED INITIAL (test code = SCREENING ONLY; SUGGEST CANNABURN) ADDITIONALCONFI RMATORY TESTING.Cannabi noids cut-off concent ration: 50 ng/mL URN AMPHETAMINE NEGATIVE NEGATIVE Amphetamine cut-off (test code = concentration: 1000 ng/mL AMPHETURN) URN BARBITURATE NEGATIVE NEGATIVE Barbiturate cut-off (test code = concentration: 200 ng/mL BARBITURN) URN BENZODIAZEPINE NEGATIVE NEGATIVE Benzodiaz epine cut-off (test code = concentration: 200 ng/mL BENZOURN) URN OPIATES (test NEGATIVE NEGATIVE Opiates cu t-off code = OPIATURN) concentrati on: 2000 ng/mL URN PHENCYCLIDINE NEGATIVE NEGATIVE Phencyclid ine(PCP) cut-off (PCP) (test code = concentra tion: 25 ng/ml PHENCURN) URN METHADONE (test NEGATIVE NEGATIVE Methadon e cut-off code = METHAURN) concentrati on: 300 ng/mL Specimen comments: Clean CatchURINALYSIS [id number] 17:38:00 Test Item Value Reference Range Interpretation Comments UA COLOR (test code = STRAW COLU) UA APPEARANCE (test code CLEAR = APPU) UA GLUCOSE DIPSTICK (test NORMAL mg/dl NORMAL code = DGLUU) UA BILIRUBIN DIPSTICK NEGATIVE mg/dL NEGATIVE (test code = BILU) UA KETONE DIPSTICK (test NEGATIVE mg/dl NEGATIVE code = KETU) UA SPECIFIC GRAVITY (test 1.015 1.000-1.030 code = SGU) UA BLOOD DIPSTICK (test 10 Jere/micL Jere/micL NEGATIVE A code = SASHA) UA PH DIPSTICK (test code 8.0 5.0-9.0 = GARRETT) UA PROTEIN DIPSTICK (test NEGATIVE mg/dl NEGATIVE code = PROU) UA UROBILINIOGEN DIPSTICK NORMAL mg/dl NORMAL (test code = URO) UA NITRITE DIPSTICK (test NEGATIVE NEGATIVE code = MORRO) UA LEUKOCYTE ESTERASE NEGATIVE Carlee/micL NEGATIVE DIPSTICK (test code = LEUU) UA WBC (test code = WBCU) 0-3 WBC/HPF NONE UA RBC (test code = RBCU) 5-10 RBC/HPF 0-3 A UA EPITHELIAL CELLS (test FEW EPI/HPF 0-3 code = EPIU) UA BACTERIA (test code = FEW NONE BACU) Specimen comments: Clean CatchURINALYSIS [id number] 17:37:00 Test Item Value Reference Range Interpretation Comments UA COLOR (test code = COLU) UA APPEARANCE (test code = APPU) UA GLUCOSE DIPSTICK (test NORMAL mg/dl NORMAL code = DGLUU) UA BILIRUBIN DIPSTICK NEGATIVE mg/dL NEGATIVE (test code = BILU) UA KETONE DIPSTICK (test NEGATIVE mg/dl NEGATIVE code = KETU) UA SPECIFIC GRAVITY (test 1.015 1.000-1.030 code = SGU) UA BLOOD DIPSTICK (test 10 Jere/micL Jere/micL NEGATIVE A code = SASHA) UA PH DIPSTICK (test code 8.0 5.0-9.0 = GARRETT) UA PROTEIN DIPSTICK (test NEGATIVE mg/dl NEGATIVE code = PROU) UA UROBILINIOGEN DIPSTICK NORMAL mg/dl NORMAL (test code = URO) UA NITRITE DIPSTICK (test NEGATIVE NEGATIVE code = MORRO) UA LEUKOCYTE ESTERASE NEGATIVE Carlee/micL NEGATIVE DIPSTICK (test code = LEUU) UA WBC (test code = WBCU) WBC/HPF NONE UA RBC (test code = RBCU) RBC/HPF 0-3 UA EPITHELIAL CELLS (test EPI/HPF 0-3 code = EPIU) UA BACTERIA (test code = NONE BACU) Specimen comments: Clean CatchCoronavirus 2019 nCoV [id number] 17:07:00 Test Item Value Reference Range Interpretation Comments Coronavirus 2019 Negative NEGATIVE Negative re sults should be nCoV Bedside (test treated a s presumptive and code = ifinconsistent with [id number]) clinical signs and symptoms, or ne cessaryfor patient managem ent, should be tested with an alternativemole cular assay. Negative result s do not preclude [id number] tion and should not be u sed as the sole basis forp atient management deci sions. Negative result s should beconsidered in the context of a patient's recent exposures,histo ry, presence of clinical sig ns and symptoms consis tentwith COVID-19. BASIC METABOLIC [id number] 17:01:00 Test Item Value Reference Range Interpretation Comments SODIUM (test code = NA) 136 mmol/l 134.0-147.0 N POTASSIUM (test code = K) 4.2 mmol/L 3.6-5.2 N CHLORIDE (test code = CL) 100 mmol/l 98.0-107.0 N CARBON DIOXIDE (test code = CO2) 24.1 mmol/l 21.0-33.0 N ANION GAP (test code = GAP) 16.1 0-20 N GLUCOSE (test code = GLU) 94 mg/dl 70.0-110.0 N BLOOD UREA NITROGEN (test code = 14 mg/dl 7.0-18.0 N BUN) CREATININE (test code = CREAT) 0.84 mg/dL 0.60-1.30 N GFR NON BLACK (test code = 97 mL/min 80-90 H GFRNONBLACK) GFR BLACK (test code = GFRBLACK) 117 mL/min 97-109 H CALCIUM (test code = CA) 9.3 mg/dl 8.0-10.5 N Specimen comments: Clean CatchHEPATIC FUNCTION PANEL [id number] 17:01:00 Test Item Value Reference Range Interpretation Comments TOTAL PROTEIN (test code = PROT) 7.5 GM/DL 6.0-8.1 N ALBUMIN (test code = ALB) 3.6 gm/dL 3.2-4.7 N BILIRUBIN TOTAL (test code = BILT) 0.4 mg/dl 0.0-1.0 N BILIRUBIN DIRECT (test code = 0.1 mg/dl 0.0-0.3 N BILD) SGOT/AST (test code = AST) 31 Units/L 15-37 N SGPT/ALT (test code = ALT) 27 Units/L 12.0-78.0 N ALKALINE PHOSPHATASE TOTAL (test 77 Units/L 50.0-136.0 N code = ALKP) Specimen comments: Clean [id number] 17:01:00 Test Item Value Reference Range Interpretation Comments LIPASE (test code = LIP) 111 Units/L 65.0-230.0 N Specimen comments: Clean [id number] 17:01:00 Test Item Value Reference Range Interpretation Comments ACETAMINOPHEN (test <2.0 mcg/ml 10.0-30.0 L Result i s in code = ACET) Microgram per milliliter. Specimen comments: Clean [id number] 17:01:00 Test Item Value Reference Range Interpretation Comments SALICYLATE (test code = PETTY) 4.3 mg/dl 2.8-20.0 N Specimen comments: Clean [id number] 17:01:00 Test Item Value Reference Range Interpretation Comments ALCOHOL (test code 0.20 gm/dL 0.00-0.00 H ETHYL ALC OHOL VALUES - = ALC) INTERPRETATION: 0.050 GM/DL - NOT INT OXICATED 0.100 GM/DL - INTOXICATED 0.3 50-0.450 GM/DL - SEVEREL Y INTOXICATED 0.5 50 GM/DL- FATAL INTOXICAT ION Specimen comments: Clean RoomlrHEPATIC FUNCTION PANEL [id number] 16:56:00 Test Item Value Reference Range Interpretation Comments TOTAL PROTEIN (test code = PROT) gm/dL 6.4-8.2 ALBUMIN (test code = ALB) gm/dl 3.2-4.7 BILIRUBIN TOTAL (test code = BILT) mg/dl 0.0-1.0 BILIRUBIN DIRECT (test code = BILD) mg/dl 0.0-0.3 SGOT/AST (test code = AST) Units/L 15-37 SGPT/ALT (test code = ALT) Units/L 12.0-78.0 ALKALINE PHOSPHATASE TOTAL (test Units/L 50.0-136.0 code = ALKP) Specimen comments: Clean [id number] 16:56:00 Test Item Value Reference Range Interpretation Comments LIPASE (test code = LIP) Units/L 65.0-230.0 Specimen comments: Clean [id number] 16:56:00 Test Item Value Reference Range Interpretation Comments ACETAMINOPHEN (test code = ACET) mcg/ml 10.0-30.0 Specimen comments: Clean [id number] 16:56:00 Test Item Value Reference Range Interpretation Comments SALICYLATE (test code = PETTY) mg/dl 2.8-20.0 Specimen comments: Clean [id number] 16:56:00 Test Item Value Reference Range Interpretation Comments ALCOHOL (test code = ALC) gm/dL 0.00-0.00 Specimen comments: Clean CatchBASIC METABOLIC [id number] 16:56:00 Test Item Value Reference Range Interpretation Comments SODIUM (test code = NA) 136 mmol/l 134.0-147.0 N POTASSIUM (test code = K) 4.2 mmol/L 3.6-5.2 N CHLORIDE (test code = CL) 100 mmol/l 98.0-107.0 N CARBON DIOXIDE (test code = CO2) 24.1 mmol/l 21.0-33.0 N ANION GAP (test code = GAP) 16.1 0-20 N GLUCOSE (test code = GLU) mg/dl 70.0-110.0 BLOOD UREA NITROGEN (test code = mg/dl 7.0-18.0 BUN) CREATININE (test code = CREAT) mg/dL 0.60-1.30 GFR NON BLACK (test code = mL/min 80-90 GFRNONBLACK) GFR BLACK (test code = GFRBLACK) mL/min 97-109 CALCIUM (test code = CA) mg/dl 8.0-10.5 Specimen comments: Clean CatchCBC W/AUTO [id number] 16:39:00 Test Item Value Reference Range Interpretation Comments WHITE BLOOD CELL (test code = 6.9 K/mm3 4.5-11.0 N WBC) RED BLOOD CELL (test code = 4.41 M/mm3 4.40-5.90 N RBC) HEMOGLOBIN (test code = HGB) 15.3 gm/dL 13.0-17.0 N HEMATOCRIT (test code = HCT) 45.3 % 36.0-48.0 N MEAN CELL VOLUME (test code = 102.7 UM3 80.0-94.0 H MCV) MEAN CELL HGB (test code = MCH) 34.7 UUG 25.5-32.5 H MEAN CELL HGB CONCETRATION 33.8 gm/dL 29.0-35.5 N (test code = MCHC) RED CELL DISTRIBUTION WIDTH 15.1 % 11.5-15.0 H (test code = RDW) RED CELL DISTRIBUTION WIDTH SD 57.5 fL 34.8-50.2 H (test code = RDW-SD) PLATELET COUNT (test code = 231 K/mm3 150-400 N PLT) MEAN PLATELET VOLUME (test code 8.3 fl 7.4-10.4 N = MPV) NEUTROPHIL % (test code = NT%) 40.8 % 49.0-76.0 L IMMATURE GRANULOCYTE % (test 0.3 % 0.0-0.4 N code = IG%) LYMPHOCYTE % (test code = LY%) 45.9 % 23.0-38.0 H MONOCYTE % (test code = MO%) 7.5 % 1.0-10.0 N EOSINOPHIL % (test code = EO%) 4.9 % 1.0-5.0 N BASOPHIL % (test code = BA%) 0.6 % 0.0-1.0 N NUCLEATED RBC % (test code = 0.0 % 0.0-0.1 N NRBC%) NEUTROPHIL # (test code = NT#) 2.8 K/mm3 2.4-6.3 N IMMATURE GRANULOCYTE # (test 0.02 x10 3/uL 0.00-0.07 N code = IG#) LYMPHOCYTE # (test code = LY#) 3.2 K/mm3 1.2-4.0 N MONOCYTE # (test code = MO#) 0.5 K/mm3 0.0-0.6 N EOSINOPHIL # (test code = EO#) 0.3 K/MM3 0.0-0.7 N BASOPHIL # (test code = BA#) 0.0 K/mm3 0.0-0.2 N NUCLEATED RBC # (test code = 0.00 X10 3uL 0.00-0.01 N NRBC#) COMPREHENSIVE METABOLIC PANEL [ADDED]2020-09-09 00:00:00 Test Item Value Reference Range Interpretation Comments GLUCOSE (test code = 2217) 70 MG/DL BUN (test code = 2208) 12 MG/DL CREATININE (test code = 2214) 0.69 MG/DL eGFR AMER. (test code 115 ML/MIN/1.73 = 72330) eGFR NON- AMER. (test 99 ML/MIN/1.73 code = 18267) CALC BUN/CREAT (test code = 17 RATIO 2235) SODIUM (test code = 2231) 139 MEQ/L POTASSIUM (test code = 2228) 3.9 MEQ/L CHLORIDE (test code = 2215) 102 MEQ/L CARBON DIOXIDE (test code = 24 MEQ/L 2205) CALCIUM (test code = 2209) 9.3 MG/DL PROTEIN, TOTAL (test code = 6.7 G/DL 2228) ALBUMIN (test code = 220) 4.2 G/DL CALC GLOBULIN (test code = 2.5 G/DL 2239) CALC A/G RATIO (test code = 1.7 RATIO 2233) BILIRUBIN, TOTAL (test code = 0.4 MG/DL 2206) ALKALINE PHOSPHATASE (test 65 U/L code = 2203) AST (test code = 221) 26 U/L ALT (test code = 221) 18 U/L TSH, THIRD GENERATION [ADDED]2020-09-09 00:00:00 Test Item Value Reference Range Interpretation Comments TSH, THIRD GENERATION (test code 0.871 UIU/ML = 2821) TSH, THIRD GENERATION [ADDED]2020-09-09 00:00:00 Test Item Value Reference Range Interpretation Comments TSH, THIRD GENERATION (test code 0.871 UIU/ML = 2821) LIPID PANEL [ADDED]2020-09-09 00:00:00 Test Item Value Reference Range Interpretation Comments CHOLESTEROL (test code = 2210) 251 MG/DL TRIGLYCERIDES (test code = 2232) 143 MG/DL HDL CHOLESTEROL (test code = 2220) 74 MG/DL CALC LDL CHOL (test code = 2237) 150 MG/DL RISK RATIO LDL/HDL (test code = 2.03 RATIO 2238) HEMOGLOBIN A1c [ADDED]2020-09-09 00:00:00 Test Item Value Reference Range Interpretation Comments HEMOGLOBIN A1c (test code = 58351) 4.8 % HEMOGLOBIN A1c [ADDED]2020-09-09 00:00:00 Test Item Value Reference Range Interpretation Comments HEMOGLOBIN A1c (test code = 59555) 4.8 % CBC W/AUTO DIFF WITH PLATELETS [ADDED]2020-09-09 00:00:00 Test Item Value Reference Range Interpretation Comments WBC (test code = 1001) 5.5 K/UL RBC (test code = 1002) 3.95 M/UL HEMOGLOBIN (test code = 1003) 14.0 G/DL HEMATOCRIT (test code = 1004) 39.3 % MCV (test code = 1005) 99.5 fL MCH (test code = 1006) 35.4 PG MCHC (test code = 1007) 35.6 G/DL RDW (test code = 1038) 14.6 % NEUTROPHILS (test code = 1008) 31.5 % LYMPHOCYTES (test code = 1010) 50.5 % MONOCYTES (test code = 1011) 11.7 % EOSINOPHILS (test code = 1012) 6.3 % BASOPHILS (test code = 1013) 0.0 % PLATELET COUNT (test code = 1015) 179 K/UL COMMENTS (test code = 1016) (NOTE) CBC W/AUTO DIFF WITH PLATELETS [ADDED]2020-09-09 00:00:00 Test Item Value Reference Range Interpretation Comments WBC (test code = 1001) 5.5 K/UL RBC (test code = 1002) 3.95 M/UL HEMOGLOBIN (test code = 1003) 14.0 G/DL HEMATOCRIT (test code = 1004) 39.3 % MCV (test code = 1005) 99.5 fL MCH (test code = 1006) 35.4 PG MCHC (test code = 1007) 35.6 G/DL RDW (test code = 1038) 14.6 % NEUTROPHILS (test code = 1008) 31.5 % LYMPHOCYTES (test code = 1010) 50.5 % MONOCYTES (test code = 1011) 11.7 % EOSINOPHILS (test code = 1012) 6.3 % BASOPHILS (test code = 1013) 0.0 % PLATELET COUNT (test code = 1015) 179 K/UL COMMENTS (test code = 1016) (NOTE) CBC W/AUTO DIFF WITH PLATELETS [ADDED]2020-09-09 00:00:00 Test Item Value Reference Range Interpretation Comments WBC (test code = 1001) 5.5 K/UL RBC (test code = 1002) 3.95 M/UL HEMOGLOBIN (test code = 1003) 14.0 G/DL HEMATOCRIT (test code = 1004) 39.3 % MCV (test code = 1005) 99.5 fL MCH (test code = 1006) 35.4 PG MCHC (test code = 1007) 35.6 G/DL RDW (test code = 1038) 14.6 % NEUTROPHILS (test code = 1008) 31.5 % LYMPHOCYTES (test code = 1010) 50.5 % MONOCYTES (test code = 1011) 11.7 % EOSINOPHILS (test code = 1012) 6.3 % BASOPHILS (test code = 1013) 0.0 % PLATELET COUNT (test code = 1015) 179 K/UL COMMENTS (test code = 1016) (NOTE) COMPREHENSIVE METABOLIC PANEL [ADDED]2020-09-09 00:00:00 Test Item Value Reference Range Interpretation Comments GLUCOSE (test code = 2217) 70 MG/DL BUN (test code = 2208) 12 MG/DL CREATININE (test code = 2214) 0.69 MG/DL eGFR AMER. (test code 115 ML/MIN/1.73 = 44705) eGFR NON- AMER. (test 99 ML/MIN/1.73 code = 27329) CALC BUN/CREAT (test code = 17 RATIO 2235) SODIUM (test code = 2231) 139 MEQ/L POTASSIUM (test code = 2228) 3.9 MEQ/L CHLORIDE (test code = 2215) 102 MEQ/L CARBON DIOXIDE (test code = 24 MEQ/L 2206) CALCIUM (test code = 2209) 9.3 MG/DL PROTEIN, TOTAL (test code = 6.7 G/DL 2228) ALBUMIN (test code = 2201) 4.2 G/DL CALC GLOBULIN (test code = 2.5 G/DL 2240) CALC A/G RATIO (test code = 1.7 RATIO 2234) BILIRUBIN, TOTAL (test code = 0.4 MG/DL 2206) ALKALINE PHOSPHATASE (test 65 U/L code = 2204) AST (test code = 2218) 26 U/L ALT (test code = 2219) 18 U/L COMPREHENSIVE METABOLIC PANEL [ADDED]2020-09-09 00:00:00 Test Item Value Reference Range Interpretation Comments GLUCOSE (test code = 2217) 70 MG/DL BUN (test code = 2208) 12 MG/DL CREATININE (test code = 2214) 0.69 MG/DL eGFR AMER. (test code 115 ML/MIN/1.73 = 93365) eGFR NON- AMER. (test 99 ML/MIN/1.73 code = 03673) CALC BUN/CREAT (test code = 17 RATIO 2235) SODIUM (test code = 2231) 139 MEQ/L POTASSIUM (test code = 2228) 3.9 MEQ/L CHLORIDE (test code = 2215) 102 MEQ/L CARBON DIOXIDE (test code = 24 MEQ/L 2205) CALCIUM (test code = 2209) 9.3 MG/DL PROTEIN, TOTAL (test code = 6.7 G/DL 2228) ALBUMIN (test code = 2201) 4.2 G/DL CALC GLOBULIN (test code = 2.5 G/DL 2239) CALC A/G RATIO (test code = 1.7 RATIO 2233) BILIRUBIN, TOTAL (test code = 0.4 MG/DL 2206) ALKALINE PHOSPHATASE (test 65 U/L code = 2204) AST (test code = 2218) 26 U/L ALT (test code = 2219) 18 U/L TSH, THIRD GENERATION [ADDED]2020-09-09 00:00:00 Test Item Value Reference Range Interpretation Comments TSH, THIRD GENERATION (test code 0.871 UIU/ML = 2821) TSH, THIRD GENERATION [ADDED]2020-09-09 00:00:00 Test Item Value Reference Range Interpretation Comments TSH, THIRD GENERATION (test code 0.871 UIU/ML = 2821) TSH, THIRD GENERATION [ADDED]2020-09-09 00:00:00 Test Item Value Reference Range Interpretation Comments TSH, THIRD GENERATION (test code 0.871 UIU/ML = 2821) LIPID PANEL [ADDED]2020-09-09 00:00:00 Test Item Value Reference Range Interpretation Comments CHOLESTEROL (test code = 2210) 251 MG/DL TRIGLYCERIDES (test code = 2232) 143 MG/DL HDL CHOLESTEROL (test code = 2220) 74 MG/DL CALC LDL CHOL (test code = 2237) 150 MG/DL RISK RATIO LDL/HDL (test code = 2.03 RATIO 2238) LIPID PANEL [ADDED]2020-09-09 00:00:00 Test Item Value Reference Range Interpretation Comments CHOLESTEROL (test code = 2210) 251 MG/DL TRIGLYCERIDES (test code = 2232) 143 MG/DL HDL CHOLESTEROL (test code = 2220) 74 MG/DL CALC LDL CHOL (test code = 2237) 150 MG/DL RISK RATIO LDL/HDL (test code = 2.03 RATIO 2238) HEMOGLOBIN A1c [ADDED]2020-09-09 00:00:00 Test Item Value Reference Range Interpretation Comments HEMOGLOBIN A1c (test code = 64013) 4.8 % HEMOGLOBIN A1c [ADDED]2020-09-09 00:00:00 Test Item Value Reference Range Interpretation Comments HEMOGLOBIN A1c (test code = 78747) 4.8 % HEMOGLOBIN A1c [ADDED]2020-09-09 00:00:00 Test Item Value Reference Range Interpretation Comments HEMOGLOBIN A1c (test code = 44986) 4.8 % CBC W/AUTO DIFF WITH PLATELETS [ADDED]2020-09-09 00:00:00 Test Item Value Reference Range Interpretation Comments WBC (test code = 1001) 5.5 K/UL RBC (test code = 1002) 3.95 M/UL HEMOGLOBIN (test code = 1003) 14.0 G/DL HEMATOCRIT (test code = 1004) 39.3 % MCV (test code = 1005) 99.5 fL MCH (test code = 1006) 35.4 PG MCHC (test code = 1007) 35.6 G/DL RDW (test code = 1038) 14.6 % NEUTROPHILS (test code = 1008) 31.5 % LYMPHOCYTES (test code = 1010) 50.5 % MONOCYTES (test code = 1011) 11.7 % EOSINOPHILS (test code = 1012) 6.3 % BASOPHILS (test code = 1013) 0.0 % PLATELET COUNT (test code = 1015) 179 K/UL COMMENTS (test code = 1016) (NOTE) CBC W/AUTO DIFF WITH PLATELETS [ADDED]2020-09-09 00:00:00 Test Item Value Reference Range Interpretation Comments WBC (test code = 1001) 5.5 K/UL RBC (test code = 1002) 3.95 M/UL HEMOGLOBIN (test code = 1003) 14.0 G/DL HEMATOCRIT (test code = 1004) 39.3 % MCV (test code = 1005) 99.5 fL MCH (test code = 1006) 35.4 PG MCHC (test code = 1007) 35.6 G/DL RDW (test code = 1038) 14.6 % NEUTROPHILS (test code = 1008) 31.5 % LYMPHOCYTES (test code = 1010) 50.5 % MONOCYTES (test code = 1011) 11.7 % EOSINOPHILS (test code = 1012) 6.3 % BASOPHILS (test code = 1013) 0.0 % PLATELET COUNT (test code = 1015) 179 K/UL COMMENTS (test code = 1016) (NOTE) CBC W/AUTO DIFF WITH PLATELETS [ADDED]2020-09-09 00:00:00 Test Item Value Reference Range Interpretation Comments WBC (test code = 1001) 5.5 K/UL RBC (test code = 1002) 3.95 M/UL HEMOGLOBIN (test code = 1003) 14.0 G/DL HEMATOCRIT (test code = 1004) 39.3 % MCV (test code = 1005) 99.5 fL MCH (test code = 1006) 35.4 PG MCHC (test code = 1007) 35.6 G/DL RDW (test code = 1038) 14.6 % NEUTROPHILS (test code = 1008) 31.5 % LYMPHOCYTES (test code = 1010) 50.5 % MONOCYTES (test code = 1011) 11.7 % EOSINOPHILS (test code = 1012) 6.3 % BASOPHILS (test code = 1013) 0.0 % PLATELET COUNT (test code = 1015) 179 K/UL COMMENTS (test code = 1016) (NOTE) COMPREHENSIVE METABOLIC PANEL [ADDED]2020-09-09 00:00:00 Test Item Value Reference Range Interpretation Comments GLUCOSE (test code = 2217) 70 MG/DL BUN (test code = 2208) 12 MG/DL CREATININE (test code = 2214) 0.69 MG/DL eGFR AMER. (test code 115 ML/MIN/1.73 = 72880) eGFR NON- AMER. (test 99 ML/MIN/1.73 code = 69449) CALC BUN/CREAT (test code = 17 RATIO 2235) SODIUM (test code = 2231) 139 MEQ/L POTASSIUM (test code = 2228) 3.9 MEQ/L CHLORIDE (test code = 2215) 102 MEQ/L CARBON DIOXIDE (test code = 24 MEQ/L 2205) CALCIUM (test code = 2209) 9.3 MG/DL PROTEIN, TOTAL (test code = 6.7 G/DL 2228) ALBUMIN (test code = 2201) 4.2 G/DL CALC GLOBULIN (test code = 2.5 G/DL 2239) CALC A/G RATIO (test code = 1.7 RATIO 2233) BILIRUBIN, TOTAL (test code = 0.4 MG/DL 2207) ALKALINE PHOSPHATASE (test 65 U/L code = 2204) AST (test code = 2218) 26 U/L ALT (test code = 2219) 18 U/L COMPREHENSIVE METABOLIC PANEL [ADDED]2020-09-09 00:00:00 Test Item Value Reference Range Interpretation Comments GLUCOSE (test code = 2217) 70 MG/DL BUN (test code = 2208) 12 MG/DL CREATININE (test code = 2214) 0.69 MG/DL eGFR AMER. (test code 115 ML/MIN/1.73 = 09173) eGFR NON- AMER. (test 99 ML/MIN/1.73 code = 30979) CALC BUN/CREAT (test code = 17 RATIO 2235) SODIUM (test code = 2231) 139 MEQ/L POTASSIUM (test code = 2228) 3.9 MEQ/L CHLORIDE (test code = 2215) 102 MEQ/L CARBON DIOXIDE (test code = 24 MEQ/L 2205) CALCIUM (test code = 2209) 9.3 MG/DL PROTEIN, TOTAL (test code = 6.7 G/DL 2228) ALBUMIN (test code = 2201) 4.2 G/DL CALC GLOBULIN (test code = 2.5 G/DL 2240) CALC A/G RATIO (test code = 1.7 RATIO 4) BILIRUBIN, TOTAL (test code = 0.4 MG/DL 2206) ALKALINE PHOSPHATASE (test 65 U/L code = 2204) AST (test code = 2218) 26 U/L ALT (test code = 2219) 18 U/L TSH, THIRD GENERATION [ADDED]2020-09-09 00:00:00 Test Item Value Reference Range Interpretation Comments TSH, THIRD GENERATION (test code 0.871 UIU/ML = 2821) TSH, THIRD GENERATION [ADDED]2020-09-09 00:00:00 Test Item Value Reference Range Interpretation Comments TSH, THIRD GENERATION (test code 0.871 UIU/ML = 2821) TSH, THIRD GENERATION [ADDED]2020-09-09 00:00:00 Test Item Value Reference Range Interpretation Comments TSH, THIRD GENERATION (test code 0.871 UIU/ML = 2821) LIPID PANEL [ADDED]2020-09-09 00:00:00 Test Item Value Reference Range Interpretation Comments CHOLESTEROL (test code = 2210) 251 MG/DL TRIGLYCERIDES (test code = 2232) 143 MG/DL HDL CHOLESTEROL (test code = 2220) 74 MG/DL CALC LDL CHOL (test code = 2237) 150 MG/DL RISK RATIO LDL/HDL (test code = 2.03 RATIO 2238) LIPID PANEL [ADDED]2020-09-09 00:00:00 Test Item Value Reference Range Interpretation Comments CHOLESTEROL (test code = 2210) 251 MG/DL TRIGLYCERIDES (test code = 2232) 143 MG/DL HDL CHOLESTEROL (test code = 2220) 74 MG/DL CALC LDL CHOL (test code = 2237) 150 MG/DL RISK RATIO LDL/HDL (test code = 2.03 RATIO 2238) HEMOGLOBIN A1c [ADDED]2020-09-09 00:00:00 Test Item Value Reference Range Interpretation Comments HEMOGLOBIN A1c (test code = 47184) 4.8 % HEMOGLOBIN A1c [ADDED]2020-09-09 00:00:00 Test Item Value Reference Range Interpretation Comments HEMOGLOBIN A1c (test code = 77572) 4.8 % HEMOGLOBIN A1c [ADDED]2020-09-09 00:00:00 Test Item Value Reference Range Interpretation Comments HEMOGLOBIN A1c (test code = 42690) 4.8 % CBC W/AUTO DIFF WITH PLATELETS [ADDED]2020-09-09 00:00:00 Test Item Value Reference Range Interpretation Comments WBC (test code = 1001) 5.5 K/UL RBC (test code = 1002) 3.95 M/UL HEMOGLOBIN (test code = 1003) 14.0 G/DL HEMATOCRIT (test code = 1004) 39.3 % MCV (test code = 1005) 99.5 fL MCH (test code = 1006) 35.4 PG MCHC (test code = 1007) 35.6 G/DL RDW (test code = 1038) 14.6 % NEUTROPHILS (test code = 1008) 31.5 % LYMPHOCYTES (test code = 1010) 50.5 % MONOCYTES (test code = 1011) 11.7 % EOSINOPHILS (test code = 1012) 6.3 % BASOPHILS (test code = 1013) 0.0 % PLATELET COUNT (test code = 1015) 179 K/UL COMMENTS (test code = 1016) (NOTE) CBC W/AUTO DIFF WITH PLATELETS [ADDED]2020-09-09 00:00:00 Test Item Value Reference Range Interpretation Comments WBC (test code = 1001) 5.5 K/UL RBC (test code = 1002) 3.95 M/UL HEMOGLOBIN (test code = 1003) 14.0 G/DL HEMATOCRIT (test code = 1004) 39.3 % MCV (test code = 1005) 99.5 fL MCH (test code = 1006) 35.4 PG MCHC (test code = 1007) 35.6 G/DL RDW (test code = 1038) 14.6 % NEUTROPHILS (test code = 1008) 31.5 % LYMPHOCYTES (test code = 1010) 50.5 % MONOCYTES (test code = 1011) 11.7 % EOSINOPHILS (test code = 1012) 6.3 % BASOPHILS (test code = 1013) 0.0 % PLATELET COUNT (test code = 1015) 179 K/UL COMMENTS (test code = 1016) (NOTE) SARS-CoV-2 (COVID-19) by RT-PCR (HIGH RISK)2020-06-17 00:00:00 Test Item Value Reference Range Interpretation Comments SARS-CoV-2 INTERPRETATION (test NEGATIVE code = 59727) SOURCE (test code = 84272) NOT SPECIFIED SARS-CoV-2 (COVID-19) by RT-PCR (HIGH RISK)2020-06-17 00:00:00 Test Item Value Reference Range Interpretation Comments SARS-CoV-2 INTERPRETATION (test NEGATIVE code = 70670) SOURCE (test code = 25402) NOT SPECIFIED SARS-CoV-2 (COVID-19) by RT-PCR (HIGH RISK)2020-06-17 00:00:00 Test Item Value Reference Range Interpretation Comments SARS-CoV-2 INTERPRETATION (test NEGATIVE code = 34884) SOURCE (test code = 46407) NOT SPECIFIED SARS-CoV-2 (COVID-19) by RT-PCR (HIGH RISK)2020-06-17 00:00:00 Test Item Value Reference Range Interpretation Comments SARS-CoV-2 INTERPRETATION (test NEGATIVE code = 45971) SOURCE (test code = 49600) NOT SPECIFIED SARS-CoV-2 (COVID-19) by RT-PCR (HIGH RISK)2020-06-17 00:00:00 Test Item Value Reference Range Interpretation Comments SARS-CoV-2 INTERPRETATION (test NEGATIVE code = 33627) SOURCE (test code = 76672) NOT SPECIFIED HEPATITIS B SURFACE [id number] 00:00:00 Test Item Value Reference Range Interpretation Comments HEPATITIS B SURFACE AB (test NON-REACTIVE code = 2737) HEPATITIS C [id number] 00:00:00 Test Item Value Reference Range Interpretation Comments HEPATITIS C ANTIBODY (test code NON-REACTIVE = 4675) HEPATITIS C [id number] 00:00:00 Test Item Value Reference Range Interpretation Comments HEPATITIS C ANTIBODY (test code NON-REACTIVE = 4675) HEPATITIS B SURFACE [id number] 00:00:00 Test Item Value Reference Range Interpretation Comments HEPATITIS B SURFACE AB (test NON-REACTIVE code = 2737) HEPATITIS B SURFACE [id number] 00:00:00 Test Item Value Reference Range Interpretation Comments HEPATITIS B SURFACE AB (test NON-REACTIVE code = 2737) HEPATITIS C [id number] 00:00:00 Test Item Value Reference Range Interpretation Comments HEPATITIS C ANTIBODY (test code NON-REACTIVE = 4675) HEPATITIS C [id number] 00:00:00 Test Item Value Reference Range Interpretation Comments HEPATITIS C ANTIBODY (test code NON-REACTIVE = 4675) HEPATITIS B SURFACE [id number] 00:00:00 Test Item Value Reference Range Interpretation Comments HEPATITIS B SURFACE AB (test NON-REACTIVE code = 2737) HEPATITIS B SURFACE [id number] 00:00:00 Test Item Value Reference Range Interpretation Comments HEPATITIS B SURFACE AB (test NON-REACTIVE code = 2737) HEPATITIS C [id number] 00:00:00 Test Item Value Reference Range Interpretation Comments HEPATITIS C ANTIBODY (test code NON-REACTIVE = 4675) H. PYLORI (BREATH) [ADDED]2020-04-05 00:00:00 Test Item Value Reference Range Interpretation Comments H. PYLORI (BREATH) (test code = NEGATIVE 95276) H. PYLORI (BREATH) [ADDED]2020-04-05 00:00:00 Test Item Value Reference Range Interpretation Comments H. PYLORI (BREATH) (test code = NEGATIVE 05300) H. PYLORI (BREATH) [ADDED]2020-04-05 00:00:00 Test Item Value Reference Range Interpretation Comments H. PYLORI (BREATH) (test code = NEGATIVE 47499) H. PYLORI (BREATH) [ADDED]2020-04-05 00:00:00 Test Item Value Reference Range Interpretation Comments H. PYLORI (BREATH) (test code = NEGATIVE 40225) H. PYLORI (BREATH) [ADDED]2020-04-05 00:00:00 Test Item Value Reference Range Interpretation Comments H. PYLORI (BREATH) (test code = NEGATIVE 91235) - XR CHEST 1 [id number] 19:17:00 FAX: Gt Pierre DO [phone] Harvey: St: REG FAX: Leonardo Boyd Jr [phone] ----- Name: SAI WELDON : 1955 Age/S: 63/M [address] [place] [address] Unit #: [id number] Loc: [place] [address] Phys: Gt Cardona DO Acct: [id number] Dis Date: Status: REG ER PHONE #: [phone] Exam Date: 08/23/20191902 FAX #: [phone] Reason: psych EXAMS: CPT CODE: [id number] XR CHEST 1 V 19482 SINGLE VIEW RADIOGRAPH CHEST INDICATION: Suicidal ideation. TECHNIQUE: A single view frontal radiograph of the chest was obtained. COMPARISONS: Chest x-ray 07/31/2018 FINDINGS: There is no acute osseous fracture or dislocation. There is a stable healed posttraumatic deformity of the lower right rib. There is no subdiaphragmatic free gas. The cardiomediastinal size and contour are normal. There is no pneumothorax, pleural effusion or organized pneumonia. IMPRESSION: 1. No acute cardiopulmonary process. at 1917 Reported and signed by: Neymar Stephenson D.O. CC: Gt Cardona DO; Leonardo Jarrett Jr, MD Technologist: Nellie White RT(R) Trnscrd Date/Time/By: 08/23/2019 (1916) : By: [email or web address] Orig Print D/T: S: 08/23/2019 (801) PAGE 1 S[facility] ReportP[facility] W/AUTO [id number] 13:55:00 Test Item Value Reference Range Interpretation Comments WHITE BLOOD CELL (test code = 8.36 x10 3/uL 4.5-11.0 N WBC) RED BLOOD CELL (test code = 3.52 x10 6/uL 4.00-5.60 L RBC) HEMOGLOBIN (test code = HGB) 11.2 g/dL 12.5-16.9 L HEMATOCRIT (test code = HCT) 35.0 % 37.5-50.7 L MEAN CELL VOLUME (test code = 99.4 fL 81.0-99.0 H MCV) MEAN CELL HGB (test code = MCH) 31.8 pg 27.0-33.0 N MEAN CELL HGB CONCETRATION 32.0 g/dL 33.0-37.0 L (test code = MCHC) RED CELL DISTRIBUTION WIDTH CV 13.2 % 11.5-14.5 N (test code = RDW) RED CELL DISTRIBUTION WIDTH SD 48.9 fL 37.0-54.0 N (test code = RDW-SD) PLATELET COUNT (test code = 315 x10 3/uL 150-400 N PLT) MEAN PLATELET VOLUME (test code 8.1 fL 7.0-9.0 N = MPV) NEUTROPHIL % (test code = NT%) 73.8 % 56.0-77.0 N IMMATURE GRANULOCYTE % (test 0.4 % 0.0-2.0 N code = IG%) LYMPHOCYTE % (test code = LY%) 16.9 % 14.0-32.0 N MONOCYTE % (test code = MO%) 5.6 % 4.8-9.0 N EOSINOPHIL % (test code = EO%) 2.3 % 0.3-3.7 N BASOPHIL % (test code = BA%) 1.0 % 0.0-2.0 N NUCLEATED RBC % (test code = 0.0 % 0-0 N NRBC%) NEUTROPHIL # (test code = NT#) 6.18 x10 3/uL 2.0-7.6 N IMMATURE GRANULOCYTE # (test 0.03 x10 3/uL 0.00-0.03 N code = IG#) LYMPHOCYTE # (test code = LY#) 1.41 x10 3/uL 1.0-3.8 N MONOCYTE # (test code = MO#) 0.47 x10 3/uL 0.1-0.8 N EOSINOPHIL # (test code = EO#) 0.19 x10 3/uL 0.0-0.2 N BASOPHIL # (test code = BA#) 0.08 x10 3/uL 0.0-0.2 N NUCLEATED RBC # (test code = 0.00 x10 3/uL 0.0-0.1 N NRBC#) MANUAL DIFF REQUIRED (test code NO = MDIFF) BASIC METABOLIC [id number] 13:46:00 Test Item Value Reference Range Interpretation Comments SODIUM (test code = NA) 139 mEq/L 134-147 N POTASSIUM (test code = 4.0 mEq/L 3.4-5.0 N K) CHLORIDE (test code = 109 mEq/L 100-108 H CL) CARBON DIOXIDE (test 25 mEq/L 21-33 N code = CO2) ANION GAP (test code = 9 0-20 N GAP) GLUCOSE (test code = 93 mg/dL 70-110 N GLU) BLOOD UREA NITROGEN 15 mg/dL 7-18 N (test code = BUN) GLOMERULAR FILTRATION 75.0 80-90 L Units of measure = RATE (test code = GFR) ml/mi n/1.73 m2 CREATININE (test code = 1.0 mg/dL 0.6-1.3 N CREAT) CALCIUM (test code = 9.0 mg/dL 8.0-10.5 N CA) HEPATIC FUNCTION [id number] 13:46:00 Test Item Value Reference Range Interpretation Comments TOTAL PROTEIN (test code = PROT) 6.4 g/dL 6.4-8.2 N ALBUMIN (test code = ALB) 3.60 g/dL 3.4-5.0 N BILIRUBIN TOTAL (test code = 0.2 MG/DL <1.5 N BILT) BILIRUBIN DIRECT (test code = < 0.10 MG/DL 0.0-0.30 N BILD) BILIRUBIN INDIRECT (test code = 0.10 MG/DL BILIND) SGOT/AST (test code = AST) 18 IUnit/L 15-37 N SGPT/ALT (test code = ALT) 20 IUnit/L 15-65 N ALKALINE PHOSPHATASE TOTAL (test 52 IUnit/L 20-125 N code = ALKP) [id number] 13:46:00 Test Item Value Reference Range Interpretation Comments ACETAMINOPHEN (test code = ACET) < 2 ug/mL 10-30 L [id number] 13:46:00 Test Item Value Reference Range Interpretation Comments SALICYLATE (test code = PETTY) 2.0 mg/dL 2.8-20.0 L [id number] 13:46:00 Test Item Value Reference Range Interpretation Comments ALCOHOL (test code < 0.003 G/dL <0.003 Ethyl Alc ohol = ALC) Interpretation: 0.100 gm/dL - Legally Intoxicated 0.3 00-0.400 gm/dL - Severel y Intoxicated >0. 400 gm/dL - Potenti ally LethalResults a re for Medical purpose s only, and not for Leg al orEmployment ev aluation purposes. BASIC METABOLIC [id number] 13:41:00 Test Item Value Reference Range Interpretation Comments SODIUM (test code = NA) 139 mEq/L 134-147 N POTASSIUM (test code = K) 4.0 mEq/L 3.4-5.0 N CHLORIDE (test code = CL) 109 mEq/L 100-108 H CARBON DIOXIDE (test code = CO2) 25 mEq/L 21-33 N ANION GAP (test code = GAP) 9 0-20 N GLUCOSE (test code = GLU) 93 mg/dL 70-110 N BLOOD UREA NITROGEN (test code = 15 mg/dL 7-18 N BUN) GLOMERULAR FILTRATION RATE (test 80-90 code = GFR) CREATININE (test code = CREAT) mg/dL 0.6-1.3 CALCIUM (test code = CA) 9.0 mg/dL 8.0-10.5 N HEPATIC FUNCTION [id number] 13:41:00 Test Item Value Reference Range Interpretation Comments TOTAL PROTEIN (test code = PROT) g/dL 6.4-8.2 ALBUMIN (test code = ALB) g/dL 3.4-5.0 BILIRUBIN TOTAL (test code = BILT) MG/DL <1.5 BILIRUBIN DIRECT (test code = BILD) MG/DL 0.0-0.30 SGOT/AST (test code = AST) IUnit/L 15-37 SGPT/ALT (test code = ALT) IUnit/L 15-65 ALKALINE PHOSPHATASE TOTAL (test IUnit/L 20-125 code = ALKP) [id number] 13:41:00 Test Item Value Reference Range Interpretation Comments ACETAMINOPHEN (test code = ACET) ug/mL 10-30 [id number] 13:41:00 Test Item Value Reference Range Interpretation Comments SALICYLATE (test code = PETTY) mg/dL 2.8-20.0 [id number] 13:41:00 Test Item Value Reference Range Interpretation Comments ALCOHOL (test code = ALC) G/dL <0.003 DRUGS OF ABUSE SCREEN [id number] 13:40:00 Test Item Value Reference Range Interpretation Comments URN COCAINE (test code NEGATIVE NEGATIVE = COCAURN) URN CANNABINOIDS (test POSITIVE NEGATIVE A code = CANNABURN) URN AMPHETAMINE (test NEGATIVE NEGATIVE code = AMPHETURN) URN BARBITURATE (test NEGATIVE NEGATIVE code = BARBITURN) URN BENZODIAZEPINE NEGATIVE NEGATIVE Cut-off v alue:200 (test code = BENZOURN) ng/mL URN OPIATES (test code NEGATIVE NEGATIVE Cut-o ff value:2000 = OPIATURN) ng/mL URN PHENCYCLIDINE (PCP) NEGATIVE NEGATIVE Cuto ffs:Barbiturates (test code = PHENCURN) 200 ng/mLBenzodiaze pines 200 ng/mLTHC Cannabinoids 50 ng/mLOpiates(Mo rphine) 2000 ng/mLAmphe tamine 1000 ng/mLCocai ne 300 ng/mLPCP phency clidine 25 ng/mL Unconf irmed screening resul ts shouldnot be us ed for non-medical pur poses. URINALYSIS [id number] 13:22:00 Test Item Value Reference Range Interpretation Comments UA COLOR (test code = COLU) STRAW YEL/STRAW UA APPEARANCE (test code = CLEAR CLEAR APPU) UA GLUCOSE DIPSTICK (test code NEGATIVE NEGATIVE = DGLUU) UA BILIRUBIN DIPSTICK (test NEGATIVE NEGATIVE code = BILU) UA KETONE DIPSTICK (test code NEGATIVE NEGATIVE = KETU) UA SPECIFIC GRAVITY (test code 1.006 1.005-1.030 N = SGU) UA BLOOD DIPSTICK (test code = NEGATIVE NEGATIVE SASHA) UA PH DIPSTICK (test code = 8.0 5.0-7.0 H GARRETT) UA PROTEIN DIPSTICK (test code NEGATIVE NEGATIVE = PROU) UA UROBILINIOGEN DIPSTICK 0.2 mg/dL 0.2-1.0 (test code = URO) UA NITRITE DIPSTICK (test code NEGATIVE NEGATIVE = MORRO) UA LEUKOCYTE ESTERASE DIPSTICK NEGATIVE NEGATIVE (test code = LEUU) UA RBC (test code = RBCU) 0-3 RBC/HPF 0-3 UA WBC NO REFLEX (test code = 0-3 WBC/HPF 0-3 WBCUCL) UA BACTERIA (test code = BACU) TRACE /HPF NONE SEEN UA SQUAMOUS CELLS (test code = NONE SEEN /HPF NONE SEEN SQU) UA MUCUS (test code = MUCU) TRACE /LPF NONE SEEN DRUGS OF ABUSE SCREEN [id number] 13:14:00 Test Item Value Reference Range Interpretation Comments URN COCAINE (test code NEGATIVE NEGATIVE = COCAURN) URN CANNABINOIDS (test NEGATIVE code = CANNABURN) URN AMPHETAMINE (test NEGATIVE NEGATIVE code = AMPHETURN) URN BARBITURATE (test NEGATIVE NEGATIVE code = BARBITURN) URN BENZODIAZEPINE NEGATIVE NEGATIVE Cut-off v alue:200 (test code = BENZOURN) ng/mL URN OPIATES (test code NEGATIVE NEGATIVE Cut-o ff value:2000 = OPIATURN) ng/mL URN PHENCYCLIDINE (PCP) NEGATIVE NEGATIVE Cuto ffs:Barbiturates (test code = PHENCURN) 200 ng/mLBenzodiaze pines 200 ng/mLTHC Cannabinoids 50 ng/mLOpiates(Mo rphine) 2000 ng/mLAmphe tamine 1000 ng/mLCocai ne 300 ng/mLPCP phency clidine 25 ng/mL Unconf irmed screening resul ts shouldnot be us ed for non-medical pur poses. CULTURE, URINE [ADDED]2019-08-07 00:00:00 Test Item Value Reference Range Interpretation Comments CULTURE, URINE (test SPECIMEN NUMBER: code = 08650) [id number] CULTURE, URINE [ADDED]2019-08-07 00:00:00 Test Item Value Reference Range Interpretation Comments CULTURE, URINE (test SPECIMEN NUMBER: code = 08582) [id number] CULTURE, URINE [ADDED]2019-08-07 00:00:00 Test Item Value Reference Range Interpretation Comments CULTURE, URINE (test SPECIMEN NUMBER: code = 58458) [id number] CULTURE, URINE [ADDED]2019-08-07 00:00:00 Test Item Value Reference Range Interpretation Comments CULTURE, URINE (test SPECIMEN NUMBER: code = 60097) [id number] CULTURE, URINE [ADDED]2019-08-07 00:00:00 Test Item Value Reference Range Interpretation Comments CULTURE, URINE (test SPECIMEN NUMBER: code = 09209) [id number] PSA, TOTAL [ADDED]2019-08-06 00:00:00 Test Item Value Reference Range Interpretation Comments PSA, TOTAL (test code = 2606) 0.47 NG/ML PSA, TOTAL [ADDED]2019-08-06 00:00:00 Test Item Value Reference Range Interpretation Comments PSA, TOTAL (test code = 2606) 0.47 NG/ML PSA, TOTAL [ADDED]2019-08-06 00:00:00 Test Item Value Reference Range Interpretation Comments PSA, TOTAL (test code = 2606) 0.47 NG/ML PSA, TOTAL [ADDED]2019-08-06 00:00:00 Test Item Value Reference Range Interpretation Comments PSA, TOTAL (test code = 2606) 0.47 NG/ML PSA, TOTAL [ADDED]2019-08-06 00:00:00 Test Item Value Reference Range Interpretation Comments PSA, TOTAL (test code = 2606) 0.47 NG/ML PSA, TOTAL [ADDED]2019-08-06 00:00:00 Test Item Value Reference Range Interpretation Comments PSA, TOTAL (test code = 2606) 0.47 NG/ML PSA, TOTAL [ADDED]2019-08-06 00:00:00 Test Item Value Reference Range Interpretation Comments PSA, TOTAL (test code = 2606) 0.47 NG/ML PSA, TOTAL [ADDED]2019-08-06 00:00:00 Test Item Value Reference Range Interpretation Comments PSA, TOTAL (test code = 2606) 0.47 NG/ML URINALYSIS [id number] 16:42:00 Test Item Value Reference Range Interpretation Comments UA COLOR (test code = YELLOW COLU) UA APPEARANCE (test code CLEAR = APPU) UA GLUCOSE DIPSTICK (test NORMAL mg/dl NORMAL code = DGLUU) UA BILIRUBIN DIPSTICK NEGATIVE mg/dL NEGATIVE (test code = BILU) UA KETONE DIPSTICK (test NEGATIVE mg/dl NEGATIVE code = KETU) UA SPECIFIC GRAVITY (test 1.010 1.000-1.030 code = SGU) UA BLOOD DIPSTICK (test 10 Jere/micL Jere/micL NEGATIVE A code = SASHA) UA PH DIPSTICK (test code 7.0 5.0-9.0 = GARRETT) UA PROTEIN DIPSTICK (test NEGATIVE mg/dl NEGATIVE code = PROU) UA UROBILINIOGEN DIPSTICK NORMAL mg/dl NORMAL (test code = URO) UA NITRITE DIPSTICK (test NEGATIVE NEGATIVE code = MORRO) UA LEUKOCYTE ESTERASE NEGATIVE Carlee/micL NEGATIVE DIPSTICK (test code = LEUU) UA WBC (test code = WBCU) 0-2 WBC/HPF NONE UA RBC (test code = RBCU) 0-2 RBC/HPF 0-3 UA EPITHELIAL CELLS (test 0-3 EPI/HPF 0-3 code = EPIU) UA BACTERIA (test code = TRACE NONE BACU) Specimen comments: Clean CatchDRUGS OF ABUSE SCREEN [id number] 16:39:00 Test Item Value Reference Range Interpretation Comments URN COCAINE (test code NEGATIVE NEGATIVE Cocai ne cut-off = COCAURN) concentration: 300 ng/mL URN CANNABINOIDS (test NEGATIVE NEGATIVE Canna binoids cut-off code = CANNABURN) concentrat ion: 50 ng/mL URN AMPHETAMINE (test NEGATIVE NEGATIVE Amphet amine cut-off code = AMPHETURN) concentrat ion: 1000 ng/mL URN BARBITURATE (test NEGATIVE NEGATIVE Barbit urate cut-off code = BARBITURN) concentrat ion: 200 ng/mL URN BENZODIAZEPINE NEGATIVE NEGATIVE Benzodiaz epine cut-off (test code = BENZOURN) derrick ntration: 200 ng/mL URN OPIATES (test code NEGATIVE NEGATIVE Opiat es cut-off = OPIATURN) concentration: 200 ng/mL URN PHENCYCLIDINE (PCP) NEGATIVE NEGATIVE Phen cyclidine(PCP) (test code = PHENCURN) cut-o ff concentration: 25 ng/ml URN METHADONE (test NEGATIVE NEGATIVE Methadon e cut-off code = METHAURN) concentrati on: 300 ng/mL Specimen comments: Clean CatchBASIC METABOLIC [id number] 16:39:00 Test Item Value Reference Range Interpretation Comments SODIUM (test code = NA) 136 mmol/l 134.0-147.0 N POTASSIUM (test code = K) 4.0 mmol/L 3.6-5.2 N CHLORIDE (test code = CL) 102 mmol/l 98.0-107.0 N CARBON DIOXIDE (test code = CO2) 21.8 mmol/l 21.0-33.0 N ANION GAP (test code = GAP) 16.2 0-20 N GLUCOSE (test code = GLU) 82 mg/dl 70.0-110.0 N BLOOD UREA NITROGEN (test code = 12 mg/dl 7.0-18.0 N BUN) CREATININE (test code = CREAT) 0.83 mg/dL 0.60-1.30 N GFR NON BLACK (test code = 99 mL/min 80-90 H GFRNONBLACK) GFR BLACK (test code = GFRBLACK) 120 mL/min 97-109 H CALCIUM (test code = CA) 9.9 mg/dl 8.0-10.5 N HEPATIC FUNCTION PANEL [id number] 16:39:00 Test Item Value Reference Range Interpretation Comments TOTAL PROTEIN (test code = PROT) 8.2 GM/DL 6.0-8.1 H ALBUMIN (test code = ALB) 4.2 gm/dL 3.2-4.7 N BILIRUBIN TOTAL (test code = BILT) 0.3 mg/dl 0.0-1.0 N BILIRUBIN DIRECT (test code = 0.1 mg/dl 0.0-0.3 N BILD) SGOT/AST (test code = AST) 22 Units/L 15.0-37.0 N SGPT/ALT (test code = ALT) 24 Units/L 12.0-78.0 N ALKALINE PHOSPHATASE TOTAL (test 63 Units/L 50.0-136.0 N code = ALKP) [id number] 16:39:00 Test Item Value Reference Range Interpretation Comments ALCOHOL (test code 0.05 gm/dL 0.00-0.00 H ETHYL ALC OHOL VALUES - = ALC) INTERPRETATION: 0.050 GM/DL - NOT INT OXICATED 0.100 GM/DL - INTOXICATED 0.3 50-0.450 GM/DL - SEVEREL Y INTOXICATED 0.5 50 GM/DL- FATAL INTOXICAT ION URINALYSIS [id number] 16:35:00 Test Item Value Reference Range Interpretation Comments UA COLOR (test code = YELLOW COLU) UA APPEARANCE (test code CLEAR = APPU) UA GLUCOSE DIPSTICK (test NORMAL mg/dl NORMAL code = DGLUU) UA BILIRUBIN DIPSTICK NEGATIVE mg/dL NEGATIVE (test code = BILU) UA KETONE DIPSTICK (test NEGATIVE mg/dl NEGATIVE code = KETU) UA SPECIFIC GRAVITY (test 1.010 1.000-1.030 code = SGU) UA BLOOD DIPSTICK (test 10 Jere/micL Jere/micL NEGATIVE A code = SASHA) UA PH DIPSTICK (test code 7.0 5.0-9.0 = GARRETT) UA PROTEIN DIPSTICK (test NEGATIVE mg/dl NEGATIVE code = PROU) UA UROBILINIOGEN DIPSTICK NORMAL mg/dl NORMAL (test code = URO) UA NITRITE DIPSTICK (test NEGATIVE NEGATIVE code = MORRO) UA LEUKOCYTE ESTERASE NEGATIVE Carlee/micL NEGATIVE DIPSTICK (test code = LEUU) UA WBC (test code = WBCU) WBC/HPF NONE UA RBC (test code = RBCU) RBC/HPF 0-3 UA EPITHELIAL CELLS (test EPI/HPF 0-3 code = EPIU) UA BACTERIA (test code = NONE BACU) Specimen comments: Clean CatchBASIC METABOLIC [id number] 16:35:00 Test Item Value Reference Range Interpretation Comments SODIUM (test code = NA) 136 mmol/l 134.0-147.0 N POTASSIUM (test code = K) 4.0 mmol/L 3.6-5.2 N CHLORIDE (test code = CL) 102 mmol/l 98.0-107.0 N CARBON DIOXIDE (test code = CO2) 21.8 mmol/l 21.0-33.0 N ANION GAP (test code = GAP) 16.2 0-20 N GLUCOSE (test code = GLU) mg/dl 70.0-110.0 BLOOD UREA NITROGEN (test code = mg/dl 7.0-18.0 BUN) CREATININE (test code = CREAT) mg/dL 0.60-1.30 GFR NON BLACK (test code = mL/min 80-90 GFRNONBLACK) GFR BLACK (test code = GFRBLACK) mL/min 97-109 CALCIUM (test code = CA) mg/dl 8.0-10.5 HEPATIC FUNCTION PANEL [id number] 16:35:00 Test Item Value Reference Range Interpretation Comments TOTAL PROTEIN (test code = PROT) gm/dL 6.4-8.2 ALBUMIN (test code = ALB) gm/dl 3.2-4.7 BILIRUBIN TOTAL (test code = BILT) mg/dl 0.0-1.0 BILIRUBIN DIRECT (test code = BILD) mg/dl 0.0-0.3 SGOT/AST (test code = AST) Units/L 15.0-37.0 SGPT/ALT (test code = ALT) Units/L 12.0-78.0 ALKALINE PHOSPHATASE TOTAL (test Units/L 50.0-136.0 code = ALKP) [id number] 16:35:00 Test Item Value Reference Range Interpretation Comments ALCOHOL (test code = ALC) gm/dL 0.00-0.00 CBC W/O [id number] 16:34:00 Test Item Value Reference Range Interpretation Comments WHITE BLOOD CELL (test code = WBC) 10.7 K/mm3 4.5-11.0 N RED BLOOD CELL (test code = RBC) 4.23 M/mm3 4.40-5.90 L HEMOGLOBIN (test code = HGB) 14.2 gm/dL 13.0-17.0 N HEMATOCRIT (test code = HCT) 41.5 % 36.0-48.0 N MEAN CELL VOLUME (test code = MCV) 98.1 UM3 80.0-94.0 H MEAN CELL HGB (test code = MCH) 33.6 UUG 25.5-32.5 H MEAN CELL HGB CONCETRATION (test 34.2 gm/dL 29.0-35.5 N code = MCHC) RED CELL DISTRIBUTION WIDTH (test 12.8 % 11.5-15.0 N code = RDW) PLATELET COUNT (test code = PLT) 296 K/mm3 150-400 N MEAN PLATELET VOLUME (test code = 8.1 fl 7.4-10.4 N MPV) SURGICAL [id number] 08:41:00 RUN DATE: 08/06/18 [facility] *LIVE* PAGE 1 RUN TIME: 841 Specimen Inquiry RUN USER: INTERFACE --------- ---PATIENT: SAI WELDON LOC: [facility] U #: [id number] AGE/SX: 62/M ROOM: [id number]/04/18REG DR: Kal Medrano MD : 51 BED: DIS: STATUS: [facility] TLOC: SPEC #: [id number] RECD: 08/04/18 STATUS: HUNTER MIRANDA #: [id number] BUDDY: 08/04/[address] [facility] [address]: Kal Medrano MD ENTERED: 08/06/18 SP TYPE:SURG SPEC OTHR DR: Leonardo Jarrett Jr, MD ORDERED: GM LEVEL 4 CODES: [id number] - COLON, NOS [place]IES TO:[place] [address] [place] [address] [email or web address] Kal Medrano MD [address] [place] [address] [address] [place] [address] PROCEDURES: GM LEVEL 4 (Incomplete) TISSUES: 1. COLON, NOS - Colon, sigmoid, bx. FINAL DIAGNOSIS Colon, sigmoid, bx.: Hyperplasticpolyp. GROSS AND MICROSCOPIC GROSS EXAMINATION: Received in formalin labeled sigmoid colon polyp is one marrero tissue fragment measuring up to 0.3 cm submitted in one cassette. MICROSCOPIC EXAMINATION: Sections of the sigmoid colon biopsy reveal changes hyperplastic polyp with tubular glands having increased numbers of goblet cells forming a stellate appearance. POST-OP DIAGNOSIS Sigmoid colon polyps PRE-OP DIAGNOSIS Colon cancer screening ETOH dependence CONTINUED ON NEXT PAGE RUN DATE: 08/06/18 [facility] *LIVE* PAGE 2 RUN TIME: 0842 Specimen Inquiry RUN USER: INTERFACE SPEC #: [id number] PATIENT: SAI WELDON #[id number] (Continued) Signed SIGNATURE ON Garo Quiroz 08/06/18 0841 END OF REPORT BASIC METABOLIC [id number] 10:23:00 Test Item Value Reference Range Interpretation Comments SODIUM (test code = NA) 140 mEq/L 134-147 N POTASSIUM (test code = 3.7 mEq/L 3.4-5.0 N K) CHLORIDE (test code = 108 mEq/L 100-108 N CL) CARBON DIOXIDE (test 26 mEq/L 21-33 N code = CO2) ANION GAP (test code = 10 0-20 N GAP) GLUCOSE (test code = 84 mg/dL 70-110 N GLU) BLOOD UREA NITROGEN 14 mg/dL 7-18 N (test code = BUN) GLOMERULAR FILTRATION 97.3 80-90 H Units of measure = RATE (test code = GFR) ml/mi n/1.73 m2 CREATININE (test code = 0.8 mg/dL 0.6-1.3 N CREAT) CALCIUM (test code = 8.5 mg/dL 8.0-10.5 N CA) BASIC METABOLIC [id number] 12:19:00 Test Item Value Reference Range Interpretation Comments SODIUM (test code = NA) 138 mEq/L 134-147 N POTASSIUM (test code = 4.5 mEq/L 3.4-5.0 N K) CHLORIDE (test code = 108 mEq/L 100-108 N CL) CARBON DIOXIDE (test 26 mEq/L 21-33 N code = CO2) ANION GAP (test code = 9 0-20 N GAP) GLUCOSE (test code = 96 mg/dL 70-110 N GLU) BLOOD UREA NITROGEN 20 mg/dL 7-18 H (test code = BUN) GLOMERULAR FILTRATION 85.0 80-90 N Units of measure = RATE (test code = GFR) ml/mi n/1.73 m2 CREATININE (test code = 0.9 mg/dL 0.6-1.3 N CREAT) CALCIUM (test code = 9.3 mg/dL 8.0-10.5 N CA) CBC W/AUTO [id number] 11:46:00 Test Item Value Reference Range Interpretation Comments WHITE BLOOD CELL (test code = 7.99 x10 3/uL 4.5-11.0 N WBC) RED BLOOD CELL (test code = 4.04 x10 6/uL 4.00-5.60 N RBC) HEMOGLOBIN (test code = HGB) 13.6 g/dL 12.5-16.9 N HEMATOCRIT (test code = HCT) 40.8 % 37.5-50.7 N MEAN CELL VOLUME (test code = 101.0 fL 81.0-99.0 H MCV) MEAN CELL HGB (test code = MCH) 33.7 pg 27.0-33.0 H MEAN CELL HGB CONCETRATION 33.3 g/dL 33.0-37.0 N (test code = MCHC) RED CELL DISTRIBUTION WIDTH CV 12.6 % 11.5-14.5 N (test code = RDW) RED CELL DISTRIBUTION WIDTH SD 47.5 fL 37.0-54.0 N (test code = RDW-SD) PLATELET COUNT (test code = 288 x10 3/uL 150-400 N PLT) MEAN PLATELET VOLUME (test code 8.2 fL 7.0-9.0 N = MPV) NEUTROPHIL % (test code = NT%) 62.6 % 56.0-77.0 N IMMATURE GRANULOCYTE % (test 0.3 % 0.0-2.0 N code = IG%) LYMPHOCYTE % (test code = LY%) 23.9 % 14.0-32.0 N MONOCYTE % (test code = MO%) 8.1 % 4.8-9.0 N EOSINOPHIL % (test code = EO%) 4.1 % 0.3-3.7 H BASOPHIL % (test code = BA%) 1.0 % 0.0-2.0 N NUCLEATED RBC % (test code = 0.0 % 0-0 N NRBC%) NEUTROPHIL # (test code = NT#) 5.00 x10 3/uL 2.0-7.6 N IMMATURE GRANULOCYTE # (test 0.02 x10 3/uL 0.00-0.03 N code = IG#) LYMPHOCYTE # (test code = LY#) 1.91 x10 3/uL 1.0-3.8 N MONOCYTE # (test code = MO#) 0.65 x10 3/uL 0.1-0.8 N EOSINOPHIL # (test code = EO#) 0.33 x10 3/uL 0.0-0.2 H BASOPHIL # (test code = BA#) 0.08 x10 3/uL 0.0-0.2 N NUCLEATED RBC # (test code = 0.00 x10 3/uL 0.0-0.1 N NRBC#) MANUAL DIFF REQUIRED (test code NO = MDIFF) - XR CHEST 2 [id number] 11:13:00 FAX: Leonardo Boyd Jr [phone] Harvey: St: PRE FAX: Kal Ac MD [phone] FAX: Rissa Buenrostro N Name: SAI WELDON [facility] : 1955 Age/S: 62/M [address] [place] [address] Unit #: [id number] Loc: [place] [address] Phys: Rissa Buenrostro [employer]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 The heart size and pulmonary vascularity are normal. Bony thorax shows no acute abnormality. IMPRESSION: No active process. SL: [id number] at 1113 Reported and signed by: Dimitri Dasilva M.D. CC: Leonardo Jarrett Jr, MD; Kal Medrano MD; Rissa Buenrostro NP Technologist: Melissa Oliver, (R), RTT Trnscrd Date/Time/By: 07/31/2018 (1113) : By: Daniel Orig Print D/T: S: 07/31/2018 (1116)PAGE 1 Signed Report CBC W/AUTO [id number] 00:00:00 Test Item Value Reference Range Interpretation Comments WBC (test code = 1001) 6.3 K/UL RBC (test code = 1002) 4.36 M/UL HEMOGLOBIN (test code = 1003) 13.6 G/DL HEMATOCRIT (test code = 1004) 40.6 % MCV (test code = 1005) 93.1 fL MCH (test code = 1006) 31.2 PG MCHC (test code = 1007) 33.5 G/DL RDW (test code = 1038) 13.4 % NEUTROPHILS (test code = 1008) 54 % LYMPHOCYTES (test code = 1010) 31 % MONOCYTES (test code = 1011) 8 % EOSINOPHILS (test code = 1012) 5 % BASOPHILS (test code = 1013) 1 % PLATELET COUNT (test code = 1015) 299 K/UL CBC W/AUTO [id number] 00:00:00 Test Item Value Reference Range Interpretation Comments WBC (test code = 1001) 6.3 K/UL RBC (test code = 1002) 4.36 M/UL HEMOGLOBIN (test code = 1003) 13.6 G/DL HEMATOCRIT (test code = 1004) 40.6 % MCV (test code = 1005) 93.1 fL MCH (test code = 1006) 31.2 PG MCHC (test code = 1007) 33.5 G/DL RDW (test code = 1038) 13.4 % NEUTROPHILS (test code = 1008) 54 % LYMPHOCYTES (test code = 1010) 31 % MONOCYTES (test code = 1011) 8 % EOSINOPHILS (test code = 1012) 5 % BASOPHILS (test code = 1013) 1 % PLATELET COUNT (test code = 1015) 299 K/UL COMPREHENSIVE METABOLIC [id number] 00:00:00 Test Item Value Reference Range Interpretation Comments GLUCOSE (test code = 2217) 87 MG/DL BUN (test code = 2208) 15 MG/DL CREATININE (test code = 2214) 0.86 MG/DL eGFR AMER. (test code 108 ML/MIN/1.73 = 77408) eGFR NON- AMER. (test 94 ML/MIN/1.73 code = 32667) CALCULATED BUN/CREAT (test 17 RATIO code = 2235) SODIUM (test code = 2231) 136 MEQ/L POTASSIUM (test code = 2228) 4.6 MEQ/L CHLORIDE (test code = 2215) 105 MEQ/L CARBON DIOXIDE (test code = 23 MEQ/L 2205) CALCIUM (test code = 2209) 9.9 MG/DL PROTEIN, TOTAL (test code = 7.2 G/DL 2228) ALBUMIN (test code = 2201) 4.1 G/DL CALCULATED GLOBULIN (test 3.1 G/DL code = 2240) CALCULATED A/G RATIO (test 1.3 RATIO code = 2234) BILIRUBIN, TOTAL (test code = 0.4 MG/DL 2206) ALKALINE PHOSPHATASE (test 51 U/L code = 220) SGOT (AST) (test code = 2218) 20 U/L SGPT (ALT) (test code = 2219) 17 U/L LIPID [id number] 00:00:00 Test Item Value Reference Range Interpretation Comments CHOLESTEROL (test code = 2210) 230 MG/DL TRIGLYCERIDES (test code = 2232) 76 MG/DL HDL CHOLESTEROL (test code = 2220) 59 MG/DL CALCULATED LDL CHOL (test code = 156 MG/DL 2236) RISK RATIO LDL/HDL (test code = 2.64 RATIO 2238) THYROID II PROFILE (T3U, T4, T7, TSH)2015-06-28 00:00:00 Test Item Value Reference Range Interpretation Comments T3 UPTAKE (test code = 2817) 26.0 % T4 (THYROXINE) (test code = 2819) 6.9 UG/DL CALCULATED T7 (FTI) (test code = 1.79 2640) TSH (test code = 2821) 3.5 UIU/ML HEMOGLOBIN [id number] 00:00:00 Test Item Value Reference Range Interpretation Comments HEMOGLOBIN A1c (test code = 02207) 5.3 % HEMOGLOBIN [id number] 00:00:00 Test Item Value Reference Range Interpretation Comments HEMOGLOBIN A1c (test code = 45057) 5.3 % HEMOGLOBIN [id number] 00:00:00 Test Item Value Reference Range Interpretation Comments HEMOGLOBIN A1c (test code = 86417) 5.3 % CBC W/AUTO [id number] 00:00:00 Test Item Value Reference Range Interpretation Comments WBC (test code = 1001) 6.3 K/UL RBC (test code = 1002) 4.36 M/UL HEMOGLOBIN (test code = 1003) 13.6 G/DL HEMATOCRIT (test code = 1004) 40.6 % MCV (test code = 1005) 93.1 fL MCH (test code = 1006) 31.2 PG MCHC (test code = 1007) 33.5 G/DL RDW (test code = 1038) 13.4 % NEUTROPHILS (test code = 1008) 54 % LYMPHOCYTES (test code = 1010) 31 % MONOCYTES (test code = 1011) 8 % EOSINOPHILS (test code = 1012) 5 % BASOPHILS (test code = 1013) 1 % PLATELET COUNT (test code = 1015) 299 K/UL CBC W/AUTO [id number] 00:00:00 Test Item Value Reference Range Interpretation Comments WBC (test code = 1001) 6.3 K/UL RBC (test code = 1002) 4.36 M/UL HEMOGLOBIN (test code = 1003) 13.6 G/DL HEMATOCRIT (test code = 1004) 40.6 % MCV (test code = 1005) 93.1 fL MCH (test code = 1006) 31.2 PG MCHC (test code = 1007) 33.5 G/DL RDW (test code = 1038) 13.4 % NEUTROPHILS (test code = 1008) 54 % LYMPHOCYTES (test code = 1010) 31 % MONOCYTES (test code = 1011) 8 % EOSINOPHILS (test code = 1012) 5 % BASOPHILS (test code = 1013) 1 % PLATELET COUNT (test code = 1015) 299 K/UL CBC W/AUTO [id number] 00:00:00 Test Item Value Reference Range Interpretation Comments WBC (test code = 1001) 6.3 K/UL RBC (test code = 1002) 4.36 M/UL HEMOGLOBIN (test code = 1003) 13.6 G/DL HEMATOCRIT (test code = 1004) 40.6 % MCV (test code = 1005) 93.1 fL MCH (test code = 1006) 31.2 PG MCHC (test code = 1007) 33.5 G/DL RDW (test code = 1038) 13.4 % NEUTROPHILS (test code = 1008) 54 % LYMPHOCYTES (test code = 1010) 31 % MONOCYTES (test code = 1011) 8 % EOSINOPHILS (test code = 1012) 5 % BASOPHILS (test code = 1013) 1 % PLATELET COUNT (test code = 1015) 299 K/UL COMPREHENSIVE METABOLIC [id number] 00:00:00 Test Item Value Reference Range Interpretation Comments GLUCOSE (test code = 2217) 87 MG/DL BUN (test code = 2208) 15 MG/DL CREATININE (test code = 2214) 0.86 MG/DL eGFR AMER. (test code 108 ML/MIN/1.73 = 13659) eGFR NON- AMER. (test 94 ML/MIN/1.73 code = 41033) CALCULATED BUN/CREAT (test 17 RATIO code = 2235) SODIUM (test code = 2231) 136 MEQ/L POTASSIUM (test code = 2228) 4.6 MEQ/L CHLORIDE (test code = 2215) 105 MEQ/L CARBON DIOXIDE (test code = 23 MEQ/L 2205) CALCIUM (test code = 2209) 9.9 MG/DL PROTEIN, TOTAL (test code = 7.2 G/DL 2228) ALBUMIN (test code = 2201) 4.1 G/DL CALCULATED GLOBULIN (test 3.1 G/DL code = 2240) CALCULATED A/G RATIO (test 1.3 RATIO code = 2234) BILIRUBIN, TOTAL (test code = 0.4 MG/DL 2206) ALKALINE PHOSPHATASE (test 51 U/L code = 2204) SGOT (AST) (test code = 2218) 20 U/L SGPT (ALT) (test code = 2219) 17 U/L COMPREHENSIVE METABOLIC [id number] 00:00:00 Test Item Value Reference Range Interpretation Comments GLUCOSE (test code = 2217) 87 MG/DL BUN (test code = 2208) 15 MG/DL CREATININE (test code = 2214) 0.86 MG/DL eGFR AMER. (test code 108 ML/MIN/1.73 = 25171) eGFR NON- AMER. (test 94 ML/MIN/1.73 code = 04252) CALCULATED BUN/CREAT (test 17 RATIO code = 2235) SODIUM (test code = 2231) 136 MEQ/L POTASSIUM (test code = 2228) 4.6 MEQ/L CHLORIDE (test code = 2215) 105 MEQ/L CARBON DIOXIDE (test code = 23 MEQ/L 2205) CALCIUM (test code = 2209) 9.9 MG/DL PROTEIN, TOTAL (test code = 7.2 G/DL 2228) ALBUMIN (test code = 2201) 4.1 G/DL CALCULATED GLOBULIN (test 3.1 G/DL code = 2240) CALCULATED A/G RATIO (test 1.3 RATIO code = 2234) BILIRUBIN, TOTAL (test code = 0.4 MG/DL 2206) ALKALINE PHOSPHATASE (test 51 U/L code = 2204) SGOT (AST) (test code = 2218) 20 U/L SGPT (ALT) (test code = 2219) 17 U/L LIPID [id number] 00:00:00 Test Item Value Reference Range Interpretation Comments CHOLESTEROL (test code = 2210) 230 MG/DL TRIGLYCERIDES (test code = 2232) 76 MG/DL HDL CHOLESTEROL (test code = 2220) 59 MG/DL CALCULATED LDL CHOL (test code = 156 MG/DL 2237) RISK RATIO LDL/HDL (test code = 2.64 RATIO 2238) LIPID [id number] 00:00:00 Test Item Value Reference Range Interpretation Comments CHOLESTEROL (test code = 2210) 230 MG/DL TRIGLYCERIDES (test code = 2232) 76 MG/DL HDL CHOLESTEROL (test code = 2220) 59 MG/DL CALCULATED LDL CHOL (test code = 156 MG/DL 2237) RISK RATIO LDL/HDL (test code = 2.64 RATIO 2238) THYROID II PROFILE (T3U, T4, T7, TSH)2015-06-28 00:00:00 Test Item Value Reference Range Interpretation Comments T3 UPTAKE (test code = 2817) 26.0 % T4 (THYROXINE) (test code = 2819) 6.9 UG/DL CALCULATED T7 (FTI) (test code = 1.79 2820) TSH (test code = 2821) 3.5 UIU/ML THYROID II PROFILE (T3U, T4, T7, TSH)2015-06-28 00:00:00 Test Item Value Reference Range Interpretation Comments T3 UPTAKE (test code = 2817) 26.0 % T4 (THYROXINE) (test code = 2819) 6.9 UG/DL CALCULATED T7 (FTI) (test code = 1.79 7074) TSH (test code = 2821) 3.5 UIU/ML HEMOGLOBIN [id number] 00:00:00 Test Item Value Reference Range Interpretation Comments HEMOGLOBIN A1c (test code = 90634) 5.3 % HEMOGLOBIN [id number] 00:00:00 Test Item Value Reference Range Interpretation Comments HEMOGLOBIN A1c (test code = 91607) 5.3 % HEMOGLOBIN [id number] 00:00:00 Test Item Value Reference Range Interpretation Comments HEMOGLOBIN A1c (test code = 89045) 5.3 % CBC W/AUTO [id number] 00:00:00 Test Item Value Reference Range Interpretation Comments WBC (test code = 1001) 6.3 K/UL RBC (test code = 1002) 4.36 M/UL HEMOGLOBIN (test code = 1003) 13.6 G/DL HEMATOCRIT (test code = 1004) 40.6 % MCV (test code = 1005) 93.1 fL MCH (test code = 1006) 31.2 PG MCHC (test code = 1007) 33.5 G/DL RDW (test code = 1038) 13.4 % NEUTROPHILS (test code = 1008) 54 % LYMPHOCYTES (test code = 1010) 31 % MONOCYTES (test code = 1011) 8 % EOSINOPHILS (test code = 1012) 5 % BASOPHILS (test code = 1013) 1 % PLATELET COUNT (test code = 1015) 299 K/UL CBC W/AUTO [id number] 00:00:00 Test Item Value Reference Range Interpretation Comments WBC (test code = 1001) 6.3 K/UL RBC (test code = 1002) 4.36 M/UL HEMOGLOBIN (test code = 1003) 13.6 G/DL HEMATOCRIT (test code = 1004) 40.6 % MCV (test code = 1005) 93.1 fL MCH (test code = 1006) 31.2 PG MCHC (test code = 1007) 33.5 G/DL RDW (test code = 1038) 13.4 % NEUTROPHILS (test code = 1008) 54 % LYMPHOCYTES (test code = 1010) 31 % MONOCYTES (test code = 1011) 8 % EOSINOPHILS (test code = 1012) 5 % BASOPHILS (test code = 1013) 1 % PLATELET COUNT (test code = 1015) 299 K/UL CBC W/AUTO [id number] 00:00:00 Test Item Value Reference Range Interpretation Comments WBC (test code = 1001) 6.3 K/UL RBC (test code = 1002) 4.36 M/UL HEMOGLOBIN (test code = 1003) 13.6 G/DL HEMATOCRIT (test code = 1004) 40.6 % MCV (test code = 1005) 93.1 fL MCH (test code = 1006) 31.2 PG MCHC (test code = 1007) 33.5 G/DL RDW (test code = 1038) 13.4 % NEUTROPHILS (test code = 1008) 54 % LYMPHOCYTES (test code = 1010) 31 % MONOCYTES (test code = 1011) 8 % EOSINOPHILS (test code = 1012) 5 % BASOPHILS (test code = 1013) 1 % PLATELET COUNT (test code = 1015) 299 K/UL COMPREHENSIVE METABOLIC [id number] 00:00:00 Test Item Value Reference Range Interpretation Comments GLUCOSE (test code = 2217) 87 MG/DL BUN (test code = 2208) 15 MG/DL CREATININE (test code = 2214) 0.86 MG/DL eGFR AMER. (test code 108 ML/MIN/1.73 = 94484) eGFR NON- AMER. (test 94 ML/MIN/1.73 code = 50014) CALCULATED BUN/CREAT (test 17 RATIO code = 2235) SODIUM (test code = 2231) 136 MEQ/L POTASSIUM (test code = 2228) 4.6 MEQ/L CHLORIDE (test code = 2215) 105 MEQ/L CARBON DIOXIDE (test code = 23 MEQ/L 2206) CALCIUM (test code = 2209) 9.9 MG/DL PROTEIN, TOTAL (test code = 7.2 G/DL 2228) ALBUMIN (test code = 2201) 4.1 G/DL CALCULATED GLOBULIN (test 3.1 G/DL code = 2240) CALCULATED A/G RATIO (test 1.3 RATIO code = 2234) BILIRUBIN, TOTAL (test code = 0.4 MG/DL 2206) ALKALINE PHOSPHATASE (test 51 U/L code = 2204) SGOT (AST) (test code = 2218) 20 U/L SGPT (ALT) (test code = 2219) 17 U/L COMPREHENSIVE METABOLIC [id number] 00:00:00 Test Item Value Reference Range Interpretation Comments GLUCOSE (test code = 2217) 87 MG/DL BUN (test code = 2208) 15 MG/DL CREATININE (test code = 2214) 0.86 MG/DL eGFR AMER. (test code 108 ML/MIN/1.73 = 80192) eGFR NON- AMER. (test 94 ML/MIN/1.73 code = 68900) CALCULATED BUN/CREAT (test 17 RATIO code = 2235) SODIUM (test code = 2231) 136 MEQ/L POTASSIUM (test code = 2228) 4.6 MEQ/L CHLORIDE (test code = 2215) 105 MEQ/L CARBON DIOXIDE (test code = 23 MEQ/L 2205) CALCIUM (test code = 2209) 9.9 MG/DL PROTEIN, TOTAL (test code = 7.2 G/DL 2228) ALBUMIN (test code = 2201) 4.1 G/DL CALCULATED GLOBULIN (test 3.1 G/DL code = 2240) CALCULATED A/G RATIO (test 1.3 RATIO code = 2234) BILIRUBIN, TOTAL (test code = 0.4 MG/DL 2206) ALKALINE PHOSPHATASE (test 51 U/L code = 2204) SGOT (AST) (test code = 2218) 20 U/L SGPT (ALT) (test code = 2219) 17 U/L LIPID [id number] 00:00:00 Test Item Value Reference Range Interpretation Comments CHOLESTEROL (test code = 2210) 230 MG/DL TRIGLYCERIDES (test code = 2232) 76 MG/DL HDL CHOLESTEROL (test code = 2220) 59 MG/DL CALCULATED LDL CHOL (test code = 156 MG/DL 2236) RISK RATIO LDL/HDL (test code = 2.64 RATIO 8) LIPID [id number] 00:00:00 Test Item Value Reference Range Interpretation Comments CHOLESTEROL (test code = 2210) 230 MG/DL TRIGLYCERIDES (test code = 2232) 76 MG/DL HDL CHOLESTEROL (test code = 2220) 59 MG/DL CALCULATED LDL CHOL (test code = 156 MG/DL 7) RISK RATIO LDL/HDL (test code = 2.64 RATIO 8) THYROID II PROFILE (T3U, T4, T7, TSH)2015-06-28 00:00:00 Test Item Value Reference Range Interpretation Comments T3 UPTAKE (test code = 2817) 26.0 % T4 (THYROXINE) (test code = 2819) 6.9 UG/DL CALCULATED T7 (FTI) (test code = 1.79 2820) TSH (test code = 2821) 3.5 UIU/ML THYROID II PROFILE (T3U, T4, T7, TSH)2015-06-28 00:00:00 Test Item Value Reference Range Interpretation Comments T3 UPTAKE (test code = 2817) 26.0 % T4 (THYROXINE) (test code = 2819) 6.9 UG/DL CALCULATED T7 (FTI) (test code = 1.79 2820) TSH (test code = 2821) 3.5 UIU/ML HEMOGLOBIN [id number] 00:00:00 Test Item Value Reference Range Interpretation Comments HEMOGLOBIN A1c (test code = 53878) 5.3 % HEMOGLOBIN [id number] 00:00:00 Test Item Value Reference Range Interpretation Comments HEMOGLOBIN A1c (test code = 49455) 5.3 % CBC W/AUTO [id number] 00:00:00 Test Item Value Reference Range Interpretation Comments WBC (test code = 1001) 8.4 K/UL RBC (test code = 1002) 4.21 M/UL HEMOGLOBIN (test code = 1003) 13.6 G/DL HEMATOCRIT (test code = 1004) 40.3 % MCV (test code = 1005) 95.7 fL MCH (test code = 1006) 32.3 PG MCHC (test code = 1007) 33.7 G/DL RDW (test code = 1038) 13.3 % NEUTROPHILS (test code = 1008) 59 % LYMPHOCYTES (test code = 1010) 28 % MONOCYTES (test code = 1011) 9 % EOSINOPHILS (test code = 1012) 4 % BASOPHILS (test code = 1013) 1 % PLATELET COUNT (test code = 1015) 338 K/UL COMPREHENSIVE METABOLIC [id number] 00:00:00 Test Item Value Reference Range Interpretation Comments GLUCOSE (test code = 2217) 67 MG/DL BUN (test code = 2208) 15 MG/DL CREATININE (test code = 2214) 0.9 MG/DL eGFR AMER. (test code 104 ML/MIN/1.73 = 45515) eGFR NON- AMER. (test 86 ML/MIN/1.73 code = 05532) CALCULATED BUN/CREAT (test 17 RATIO code = 2235) SODIUM (test code = 2231) 134 MEQ/L POTASSIUM (test code = 2228) 4.4 MEQ/L CHLORIDE (test code = 2215) 104 MEQ/L CARBON DIOXIDE (test code = 23 MEQ/L 2205) CALCIUM (test code = 2209) 9.7 MG/DL PROTEIN, TOTAL (test code = 7.2 G/DL 2228) ALBUMIN (test code = 2201) 4.7 G/DL CALCULATED GLOBULIN (test 2.5 G/DL code = 2240) CALCULATED A/G RATIO (test 1.9 RATIO code = 2234) BILIRUBIN, TOTAL (test code = 0.9 MG/DL 2206) ALKALINE PHOSPHATASE (test 62 U/L code = 220) SGOT (AST) (test code = 2218) 26 U/L SGPT (ALT) (test code = 2219) 23 U/L RHEUMATOID FACTOR, [id number] 00:00:00 Test Item Value Reference Range Interpretation Comments RHEUMATOID FACTOR, QUANT (test code <20 IU/ML = 3502) RHEUMATOID FACTOR, [id number] 00:00:00 Test Item Value Reference Range Interpretation Comments RHEUMATOID FACTOR, QUANT (test code <20 IU/ML = 3502) SEDIMENTATION [id number] 00:00:00 Test Item Value Reference Range Interpretation Comments SEDIMENTATION RATE (test code = 14 MM/HOUR 1017) CBC W/AUTO [id number] 00:00:00 Test Item Value Reference Range Interpretation Comments WBC (test code = 1001) 8.4 K/UL RBC (test code = 1002) 4.21 M/UL HEMOGLOBIN (test code = 1003) 13.6 G/DL HEMATOCRIT (test code = 1004) 40.3 % MCV (test code = 1005) 95.7 fL MCH (test code = 1006) 32.3 PG MCHC (test code = 1007) 33.7 G/DL RDW (test code = 1038) 13.3 % NEUTROPHILS (test code = 1008) 59 % LYMPHOCYTES (test code = 1010) 28 % MONOCYTES (test code = 1011) 9 % EOSINOPHILS (test code = 1012) 4 % BASOPHILS (test code = 1013) 1 % PLATELET COUNT (test code = 1015) 338 K/UL CBC W/AUTO [id number] 00:00:00 Test Item Value Reference Range Interpretation Comments WBC (test code = 1001) 8.4 K/UL RBC (test code = 1002) 4.21 M/UL HEMOGLOBIN (test code = 1003) 13.6 G/DL HEMATOCRIT (test code = 1004) 40.3 % MCV (test code = 1005) 95.7 fL MCH (test code = 1006) 32.3 PG MCHC (test code = 1007) 33.7 G/DL RDW (test code = 1038) 13.3 % NEUTROPHILS (test code = 1008) 59 % LYMPHOCYTES (test code = 1010) 28 % MONOCYTES (test code = 1011) 9 % EOSINOPHILS (test code = 1012) 4 % BASOPHILS (test code = 1013) 1 % PLATELET COUNT (test code = 1015) 338 K/UL CBC W/AUTO [id number] 00:00:00 Test Item Value Reference Range Interpretation Comments WBC (test code = 1001) 8.4 K/UL RBC (test code = 1002) 4.21 M/UL HEMOGLOBIN (test code = 1003) 13.6 G/DL HEMATOCRIT (test code = 1004) 40.3 % MCV (test code = 1005) 95.7 fL MCH (test code = 1006) 32.3 PG MCHC (test code = 1007) 33.7 G/DL RDW (test code = 1038) 13.3 % NEUTROPHILS (test code = 1008) 59 % LYMPHOCYTES (test code = 1010) 28 % MONOCYTES (test code = 1011) 9 % EOSINOPHILS (test code = 1012) 4 % BASOPHILS (test code = 1013) 1 % PLATELET COUNT (test code = 1015) 338 K/UL COMPREHENSIVE METABOLIC [id number] 00:00:00 Test Item Value Reference Range Interpretation Comments GLUCOSE (test code = 2217) 67 MG/DL BUN (test code = 2208) 15 MG/DL CREATININE (test code = 2214) 0.9 MG/DL eGFR AMER. (test code 104 ML/MIN/1.73 = 34924) eGFR NON- AMER. (test 86 ML/MIN/1.73 code = 93042) CALCULATED BUN/CREAT (test 17 RATIO code = 2235) SODIUM (test code = 2231) 134 MEQ/L POTASSIUM (test code = 2228) 4.4 MEQ/L CHLORIDE (test code = 2215) 104 MEQ/L CARBON DIOXIDE (test code = 23 MEQ/L 220) CALCIUM (test code = 2209) 9.7 MG/DL PROTEIN, TOTAL (test code = 7.2 G/DL 2228) ALBUMIN (test code = 2201) 4.7 G/DL CALCULATED GLOBULIN (test 2.5 G/DL code = 2240) CALCULATED A/G RATIO (test 1.9 RATIO code = 2234) BILIRUBIN, TOTAL (test code = 0.9 MG/DL 2206) ALKALINE PHOSPHATASE (test 62 U/L code = 2204) SGOT (AST) (test code = 2218) 26 U/L SGPT (ALT) (test code = 2219) 23 U/L COMPREHENSIVE METABOLIC [id number] 00:00:00 Test Item Value Reference Range Interpretation Comments GLUCOSE (test code = 2217) 67 MG/DL BUN (test code = 2208) 15 MG/DL CREATININE (test code = 2214) 0.9 MG/DL eGFR AMER. (test code 104 ML/MIN/1.73 = 51547) eGFR NON- AMER. (test 86 ML/MIN/1.73 code = 35911) CALCULATED BUN/CREAT (test 17 RATIO code = 2235) SODIUM (test code = 2231) 134 MEQ/L POTASSIUM (test code = 2228) 4.4 MEQ/L CHLORIDE (test code = 2215) 104 MEQ/L CARBON DIOXIDE (test code = 23 MEQ/L 2206) CALCIUM (test code = 2209) 9.7 MG/DL PROTEIN, TOTAL (test code = 7.2 G/DL 2228) ALBUMIN (test code = 2201) 4.7 G/DL CALCULATED GLOBULIN (test 2.5 G/DL code = 2240) CALCULATED A/G RATIO (test 1.9 RATIO code = 2234) BILIRUBIN, TOTAL (test code = 0.9 MG/DL 7) ALKALINE PHOSPHATASE (test 62 U/L code = 2204) SGOT (AST) (test code = 2218) 26 U/L SGPT (ALT) (test code = 2219) 23 U/L RHEUMATOID FACTOR, [id number] 00:00:00 Test Item Value Reference Range Interpretation Comments RHEUMATOID FACTOR, QUANT (test code <20 IU/ML = 3502) RHEUMATOID FACTOR, [id number] 00:00:00 Test Item Value Reference Range Interpretation Comments RHEUMATOID FACTOR, QUANT (test code <20 IU/ML = 3502) RHEUMATOID FACTOR, [id number] 00:00:00 Test Item Value Reference Range Interpretation Comments RHEUMATOID FACTOR, QUANT (test code <20 IU/ML = 3502) SEDIMENTATION [id number] 00:00:00 Test Item Value Reference Range Interpretation Comments SEDIMENTATION RATE (test code = 14 MM/HOUR 1017) SEDIMENTATION [id number] 00:00:00 Test Item Value Reference Range Interpretation Comments SEDIMENTATION RATE (test code = 14 MM/HOUR 1017) CBC W/AUTO [id number] 00:00:00 Test Item Value Reference Range Interpretation Comments WBC (test code = 1001) 8.4 K/UL RBC (test code = 1002) 4.21 M/UL HEMOGLOBIN (test code = 1003) 13.6 G/DL HEMATOCRIT (test code = 1004) 40.3 % MCV (test code = 1005) 95.7 fL MCH (test code = 1006) 32.3 PG MCHC (test code = 1007) 33.7 G/DL RDW (test code = 1038) 13.3 % NEUTROPHILS (test code = 1008) 59 % LYMPHOCYTES (test code = 1010) 28 % MONOCYTES (test code = 1011) 9 % EOSINOPHILS (test code = 1012) 4 % BASOPHILS (test code = 1013) 1 % PLATELET COUNT (test code = 1015) 338 K/UL CBC W/AUTO [id number] 00:00:00 Test Item Value Reference Range Interpretation Comments WBC (test code = 1001) 8.4 K/UL RBC (test code = 1002) 4.21 M/UL HEMOGLOBIN (test code = 1003) 13.6 G/DL HEMATOCRIT (test code = 1004) 40.3 % MCV (test code = 1005) 95.7 fL MCH (test code = 1006) 32.3 PG MCHC (test code = 1007) 33.7 G/DL RDW (test code = 1038) 13.3 % NEUTROPHILS (test code = 1008) 59 % LYMPHOCYTES (test code = 1010) 28 % MONOCYTES (test code = 1011) 9 % EOSINOPHILS (test code = 1012) 4 % BASOPHILS (test code = 1013) 1 % PLATELET COUNT (test code = 1015) 338 K/UL CBC W/AUTO [id number] 00:00:00 Test Item Value Reference Range Interpretation Comments WBC (test code = 1001) 8.4 K/UL RBC (test code = 1002) 4.21 M/UL HEMOGLOBIN (test code = 1003) 13.6 G/DL HEMATOCRIT (test code = 1004) 40.3 % MCV (test code = 1005) 95.7 fL MCH (test code = 1006) 32.3 PG MCHC (test code = 1007) 33.7 G/DL RDW (test code = 1038) 13.3 % NEUTROPHILS (test code = 1008) 59 % LYMPHOCYTES (test code = 1010) 28 % MONOCYTES (test code = 1011) 9 % EOSINOPHILS (test code = 1012) 4 % BASOPHILS (test code = 1013) 1 % PLATELET COUNT (test code = 1015) 338 K/UL COMPREHENSIVE METABOLIC [id number] 00:00:00 Test Item Value Reference Range Interpretation Comments GLUCOSE (test code = 2217) 67 MG/DL BUN (test code = 2208) 15 MG/DL CREATININE (test code = 2214) 0.9 MG/DL eGFR AMER. (test code 104 ML/MIN/1.73 = 16195) eGFR NON- AMER. (test 86 ML/MIN/1.73 code = 14300) CALCULATED BUN/CREAT (test 17 RATIO code = 2235) SODIUM (test code = 2231) 134 MEQ/L POTASSIUM (test code = 2228) 4.4 MEQ/L CHLORIDE (test code = 2215) 104 MEQ/L CARBON DIOXIDE (test code = 23 MEQ/L 2206) CALCIUM (test code = 2209) 9.7 MG/DL PROTEIN, TOTAL (test code = 7.2 G/DL 2228) ALBUMIN (test code = 2201) 4.7 G/DL CALCULATED GLOBULIN (test 2.5 G/DL code = 2240) CALCULATED A/G RATIO (test 1.9 RATIO code = 2234) BILIRUBIN, TOTAL (test code = 0.9 MG/DL 2206) ALKALINE PHOSPHATASE (test 62 U/L code = 2204) SGOT (AST) (test code = 2218) 26 U/L SGPT (ALT) (test code = 2219) 23 U/L COMPREHENSIVE METABOLIC [id number] 00:00:00 Test Item Value Reference Range Interpretation Comments GLUCOSE (test code = 2217) 67 MG/DL BUN (test code = 2208) 15 MG/DL CREATININE (test code = 2214) 0.9 MG/DL eGFR AMER. (test code 104 ML/MIN/1.73 = 62618) eGFR NON- AMER. (test 86 ML/MIN/1.73 code = 09412) CALCULATED BUN/CREAT (test 17 RATIO code = 2235) SODIUM (test code = 2231) 134 MEQ/L POTASSIUM (test code = 2228) 4.4 MEQ/L CHLORIDE (test code = 2215) 104 MEQ/L CARBON DIOXIDE (test code = 23 MEQ/L 2205) CALCIUM (test code = 2209) 9.7 MG/DL PROTEIN, TOTAL (test code = 7.2 G/DL 2228) ALBUMIN (test code = 2201) 4.7 G/DL CALCULATED GLOBULIN (test 2.5 G/DL code = 2240) CALCULATED A/G RATIO (test 1.9 RATIO code = 2234) BILIRUBIN, TOTAL (test code = 0.9 MG/DL 2206) ALKALINE PHOSPHATASE (test 62 U/L code = 2204) SGOT (AST) (test code = 2218) 26 U/L SGPT (ALT) (test code = 2219) 23 U/L RHEUMATOID FACTOR, [id number] 00:00:00 Test Item Value Reference Range Interpretation Comments RHEUMATOID FACTOR, QUANT (test code <20 IU/ML = 3502) RHEUMATOID FACTOR, [id number] 00:00:00 Test Item Value Reference Range Interpretation Comments RHEUMATOID FACTOR, QUANT (test code <20 IU/ML = 3502) RHEUMATOID FACTOR, [id number] 00:00:00 Test Item Value Reference Range Interpretation Comments RHEUMATOID FACTOR, QUANT (test code <20 IU/ML = 3502) SEDIMENTATION [id number] 00:00:00 Test Item Value Reference Range Interpretation Comments SEDIMENTATION RATE (test code = 14 MM/HOUR 1017) SEDIMENTATION [id number] 00:00:00 Test Item Value Reference Range Interpretation Comments SEDIMENTATION RATE (test code = 14 MM/HOUR 1017) CBC W/AUTO [id number] 00:00:00 Test Item Value Reference Range Interpretation Comments WBC (test code = 1001) 8.4 K/UL RBC (test code = 1002) 4.21 M/UL HEMOGLOBIN (test code = 1003) 13.6 G/DL HEMATOCRIT (test code = 1004) 40.3 % MCV (test code = 1005) 95.7 fL MCH (test code = 1006) 32.3 PG MCHC (test code = 1007) 33.7 G/DL RDW (test code = 1038) 13.3 % NEUTROPHILS (test code = 1008) 59 % LYMPHOCYTES (test code = 1010) 28 % MONOCYTES (test code = 1011) 9 % EOSINOPHILS (test code = 1012) 4 % BASOPHILS (test code = 1013) 1 % PLATELET COUNT (test code = 1015) 338 K/UL Notes Date/Time Note Provider Source 2020-12-22 10:40:00-00:00 [facility] ([facility]) Hospitalist History Physical REPORT#:[id number] REPORT STATUS: Signed DATE:12/22/20 TIME: 1040 PATIENT: SAI WELDON UNIT #: [id number] [place] [id number] : 53 AGE: 65 SEX: M ATTEND: Maryellen Pathak MD ADM AUTHOR: Brenda Jackson MD * ALL edits or amendments must be made on the [employer]/computer document *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 immediate return to [facility] or the closest emergency department or a call to 911. Electronically Signed by Serenity Dumont DO on at 1635 [facility] #:[id number] END OF REPORT 2018-08-04 11:29:00-00:00 [id number] [place] [address] PATIENT NAME: SAI WELDON ADMIT DATE: ACCOUNT NO: [id number] ROOM NO: AGE: 62 REPORT TYPE: ENDOSCOPY REPORT SEX: M ADMITTING PHYSICIAN: ATTENDING PHYSICIAN:Kal Medrano MD Gastroenterology Patient Name: Sai Weldon Procedure Date: 08/04/19 11:29 AM Date of : 1955 Procedure: Colonoscopy Indications: Screening for colorectal malignant neoplasm Providers: Kal Medrano MD Referring MD: Requesting Provider: Medicines: Monitored Anesthesia Care Complications: No immediate complications. Procedure: Pre-Anesthesia Assessment: - Airway Examination: Mallampati Class II (the uvula but not tonsillar pillars visualized). - ASA Grade Assessment: III - A patient with se carroll systemic disease. - After reviewing the risks and benefits, the p atient was deemed in satisfactory condition to undergo the procedure. - Using IV propofol was determined to be medica lly necessary for this procedure based on review of the patient's medical history, medications, and krish or anesthesia history. After I obtained informed consent, the scope wa s passed under direct vision. Throughout the procedure, the patient's blood pressure, pulse, and oxygen sat urations were monitored continuously. The Colonoscope wa s introduced through the anus and advanced to th e cecum, identified by appendiceal orifice and ileocecal valve. The colonoscopy was performed without difficult y. The patient tolerated the procedure well. The quali ty of the bowel preparation was fair. Scope withdrawal ti me was 12 minutes. Findings: The perianal and digital rectal examinations we re normal. Pertinent negatives include normal sphincter tone, no pal pable rectal lesions and no anal lesion or abnormality was detected. A diminutive polyp was found in the sigmoid col on. The polyp was removed PATIENT NAME: SIA WELDON ACCOUNT #: [id number] with a cold biopsy forceps. Resection and retri eval were complete. The pathology specimen was placed into Bottle Numbe r 1. Liquid stool was found in the entire colon, int erfering with visualization. Lavage of the area was performed using copious amounts of sterile water, resulting in clearance with fair visualization. Estimated blood loss: none. There is no endoscopic evidence of mass, stenos is, stricture or ulcerations in the colon. Hematin spot in the cecum, non-specific Impression: - Preparation of the colon was fair . - One diminutive polyp in the sigmoid colon, re moved with a cold biopsy forceps. Resected and retrie lobo. - Stool in the entire examined colon. Recommendation: - Patient has a contact number a vailable for emergencies. The signs and symptoms of potentia l delayed complications were discussed with the patient. Return to normal activities tomorrow. Written discharge instructions were provided to the patient. - Discharge patient to home. - Resume previous diet. - Continue present medications. - Repeat colonoscopy in 5 years for surveillan ce. - The patient will be observed post-procedure, until all discharge criteria are met. - Resume previous diet. - Await pathology results. Procedure Code(s): --- Professional --- 72721, Colonoscopy, flexible; with biopsy, sing le or multiple Diagnosis Code(s): --- Professional --- Z12.11, Encounter for screening for malignant neoplasm of colon D12.5, Benign neoplasm of sigmoid colon CPT copyright 2017 [employer]. All rights reserved. The codes documented in this report are prelimin benita and upon scallop cutter review may be revised to meet current compliance requiremen ts. Kal Medrano MD Kal Medrano MD 08/04/2018 12:55:08 PM This report has been signed electronically. Number of Addenda: 0 Note Initiated On: 08/04/2018 11:29 AM PATIENT NAME: SAI WELDON ACCOUNT #: [id number] Electronically Signed by Kal Medrano MD on at 125 PATIENT NAME: SAI WELDON ACCOUNT #: [id number] 2018-07-31 11:16:00-00:00 [id number] [place] [address] PATIENT NAME: SAI WELDON ADMIT DATE: ACCOUNT NO: [id number] ROOM NO: AGE: 62 REPORT TYPE: eELECTROCARDIOGRAM REPORT SEX: M ADMITTING PHYSICIAN: ATTENDING PHYSICIAN:Kal Medrano MD Order: [id number] Test Reason : PRE OP Test Date/Time Stamp: FriJul 31 2018 11:16:05 Blood Pressure : / mmHG Vent. Rate : 080 BPM Atrial Rate : 080 BPM P-R Int : 198 ms QRS Dur : 088 ms QT Int : 362 ms P-R-T Axes : 065 058 058 degree s QTc Int : 417 ms Normal sinus rhythm with 1st degree AV block Borderline ECG PRE_OP Confirmed by MIYA PALACIO MD ([id number]) on 9 11:42:22 AM Referred By: Kal Medrano Confirmed by:MIYA ANTUNEZ MD at 0961 PATIENT NAME: SAI WELDON TANVIR ACCOUNT #: [id number]
[2022-12-24 11:55] LABS: Albumin 3.4 g/dL (3.4-5.0); Bilirubin Direct 0.2 mg/dL (0-0.2); Bilirubin Indirect, Calculated 0.5 mg/dL (0.2-0.8); Bilirubin Total 0.7 mg/dL (0.2-1.0); Potassium 3.8 mEq/L (3.5-5.1); Protein, Total 7.4 g/dL (6.4-8.2); Troponin High Sensitivity 4.9 pg/mL (<58.9)
--- NOTE | 2022-12-24 12:24 | RAD REPORT ---
EXAM DESCRIPTION: RAD - Chest Single View - 12/24/2022 11:59 am CLINICAL HISTORY: CHEST PAIN Chest pain. COMPARISON: No comparisons FINDINGS: Portable technique limits examination quality. Bilateral interstitial prominence is seen which can be seen in mild interstitial pulmonary edema or a viral infection/ reactive airway process. No consolidation typical of pneumonia seen. The heart is u pper limit normal in size.
--- NOTE | 2022-12-24 13:01 | RAD REPORT ---
EXAM DESCRIPTION: CT - Chest For Pe Angio - 12/24/2022 12:27 pm CLINICAL HISTORY: CHEST PAIN COMPARISON: Chest Single View dated 12/24/2022 TECHNIQUE: Thin axial CT images of the chest were obtained following administration of 100 mL Isovue 370 IV contrast. Multiplanar reconstructions, and maximum intensity projection reconstructions were generated and reviewed. Exam utilizes a protocol for optimal evaluation of pulmonary arterial tree. All CT scans are performed using dose optimization technique as appropriate and may include automated exposure control or mA/KV adjustment according to patient size. FINDINGS: Subocclusive emboli is starting at the second order branch mild the left pulmonary artery supplying the basal aspects of the left lower lobe. No other emboli or other suspicious finding, alth ough some motion artifact limits evaluation of the right lower lobe. No evidence of right heart strai n. No acute or significant aorta findings. Dependent airspace ground-glass opacities in the left lower lobe posteriorly. Bibasilar streaky atele ctasis. Trace left pleural effusion. No pleural thickening or right-sided pleural effusion. No pneumo thorax. No abnormal mediastinal or hilar masses or lymphadenopathy seen. No chest wall mass or abnormal axill iary lymphadenopathy. IMPRESSION: Subocclusive pulmonary emboli to the left lower lobe starting at the second order branch of the left pulmonary artery. Dependent ground-glass left lower lobe opacities, could reflect atelectasis or sequelae of aspiration / pneumonia. Trace left pleural effusion. The findings were communicated to Manuel Florentino on 12/24/2022 at 12:52 hours.
--- NOTE | 2022-12-24 14:19 | EDPHYS ---
Physician Documentation [facility] Name: Jonathan Sultana Age: 67 yrs Sex: Male : 1955 Arrival Date: 12/24/2022 Time: 11:15 Bed 2 Private MD: ED Physician Manuel Florentino HPI: 12/24 18:24 This 67 yrs old Male presents to ER via EMS with complaints of Chest Pain > 30 y/o. rt 18:24 Patient presents to the ED with greater than 24 hours of a left-sided chest pain, worse rt with movement and deep inspiration. Pain is aching nature, nonradiating. Reports mild shortness of breath. Denies other acute complaints at this time, symptoms are moderate severity, no other aggravating or alleviating factors.. Historical: - Allergies: 11:22 Neomycin Sulfate; ph 11:22 Demerol; ph - Immunization history:: Adult Immunizations unknown. - Social history:: Smoking status: Patient reports the use of cigarette tobacco products, smokes one-half pack cigarettes per day. - Family history:: not pertinent. ROS: 18:24 Constitutional: Negative for fever, chills, and weight loss, Abdomen/GI: Negative for rt abdominal pain, nausea, vomiting, diarrhea, and constipation, MS/Extremity: Negative for injury and deformity, Skin: Negative for injury, rash, and discoloration, Neuro: Negative for headache, weakness, numbness, tingling, and seizure, Psych: Negative for depression, anxiety, suicide ideation, homicidal ideation, and hallucinations. 18:24 Cardiovascular: Positive for chest pain, Negative for edema. 18:24 Respiratory: Positive for cough, shortness of breath. Exam: 18:24 Constitutional: This is a well developed, well nourished patient who is awake, alert, rt and in no acute distress. Head/Face: Normocephalic, atraumatic. Chest/axilla: Normal chest wall appearance and motion. Nontender with no deformity. No lesions are appreciated. Cardiovascular: Regular rate and rhythm with a normal S1 and S2. No gallops, murmurs, or rubs. Normal PMI, no JVD. No pulse deficits. Respiratory: Lungs have equal breath sounds bilaterally, clear to auscultation and percussion. No rales, rhonchi or wheezes noted. No increased work of breathing, no retractions or nasal flaring. Abdomen/GI: Soft, non-tender, with normal bowel sounds. No distension or tympany. No guarding or rebound. No evidence of tenderness throughout. Skin: Warm, dry with normal turgor. Normal color with no rashes, no lesions, and no evidence of cellulitis. MS/ Extremity: Pulses equal, no cyanosis. Neurovascular intact. Full, normal range of motion. Neuro: Awake and alert, GCS 15, oriented to person, place, time, and situation. Cranial nerves II-XII grossly intact. Motor strength 5/5 in all extremities. Sensory grossly intact. Cerebellar exam normal. Normal gait. Psych: Awake, alert, with orientation to person, place and time. Behavior, mood, and affect are within normal limits. 18:24 ECG was reviewed by the Attending Physician. Vital Signs: 11:16 BP 136 / 89; Pulse 72; Resp 18; Temp 98.4; Pulse Ox 96% on R/A; Weight 90.72 kg; Height ph 6 ft. 1 in. ; 12:13 BP 107 / 71; Pulse 72; Resp 18; Pulse Ox 94% on R/A; ph 13:08 Pulse 72; Resp 18; Pulse Ox 100% on Nebulizer Mask; ph 13:45 BP 110 / 69; Pulse 72; Resp 16; Pulse Ox 96% on R/A; db 14:30 BP 113 / 73; Pulse 74; Resp 16; Pulse Ox 96% on R/A; db 15:15 BP 106 / 70; Pulse 76; Resp 16; Pulse Ox 97% on R/A; db 11:16 Body Mass Index 26.39 (90.72 kg, 185.42 cm) ph MDM: 11:16 Patient medically screened. rt 18:24 Differential diagnosis: IL, acute coronary syndrome, pneumonia, pneumothorax, pulmonary rt embolism. HEART Score: History: Slightly Suspicious (0), ECG: Normal (0), Age: > or = 65 years (2), Risk Factors: 1 or 2 risk factors (1), Troponin: < or = 1 x Normal Limit (0), Total Score = 3. The patient was given aspirin in the Emergency Department. Data reviewed: vital signs, nurses notes, lab test result(s), EKG, radiologic studies. Consideration of Admission/Observation Escalation of care including admission/observation considered. Patient with small pulmonary emboli, likely the etiology of patient's presentation. He is greater than 24 hours of chest pain with no elevations of troponin, do not believe that he requires admission for acute coronary syndrome rule out. The patient has no evidence of right heart strain, negative troponin, no hypoxia. Discharged on oral anticoagulants versus admission for initiation of anticoagulants were discussed and offered to the patient, he states that he wishes to go home. Patient is stable for discharge, return precautions discussed. I considered the following discharge prescriptions or medication management in the emergency department Medications were administered in the Emergency Department. See MAR. Independent interpretation of the following test(s) in the Emergency Department X-Ray: My interpretation is No pneumonia seen on my interpretation of the x-ray images. Counseling: I had a detailed discussion with the patient and/or guardian regarding: the historical points, exam findings, and any diagnostic results supporting the discharge/admit diagnosis, lab results, radiology results, the need for outpatient follow up. 12/24 11:17 Order name: Basic Metabolic Panel; Complete Time: 12: rt 12/24 11:17 Order name: CBC with Diff; Complete Time: : rt 12/24 11:17 Order name: D-Dimer; Complete Time: : rt 12/24 11:17 Order name: LFT's; Complete Time: : rt 12/24 11:17 Order name: Magnesium; Complete Time: : rt 12/24 11:17 Order name: NT PRO-BNP; Complete Time: 12:00 rt 12/24 11:17 Order name: Troponin HS; Complete Time: 12: rt 12/24 11:17 Order name: XRAY Chest (1 view); Complete Time: 13:11 rt 12/24 12:14 Order name: CT Chest For PE Angio; Complete Time: 13:11 rt 12/24 11:17 Order name: EKG; Complete Time: 11: rt 12/24 11:17 Order name: Cardiac monitoring; Complete Time: rt 12/24 11:17 Order name: EKG - Nurse/Tech; Complete Time: rt 12/24 11:17 Order name: IV Saline Lock; Complete Time: 12/24 11:17 Order name: Labs collected and sent; Complete Time: rt 12/24 11:17 Order name: O2 Per Protocol; Complete Time: 11: rt 12/24 11:17 Order name: O2 Sat Monitoring; Complete Time: 11: rt EC:24 Rate is 72 beats/min. Rhythm is regular, Normal Sinus Rhythm with No ectopy. QRS [place] rt is Normal. [place] interval is normal. QRS interval is normal. QT interval is normal. No Q waves. T waves are Normal. No ST changes noted. Interpreted by me. Administered Medications: 11:30 Drug: Nitroglycerin Sublingual 0.4 mg Route: Sublingual; ph 15:45 Follow up: Response: No adverse reaction ph 11:30 Drug: DuoNeb Nebulize (3:1) (2.5 mg - 0.5 mg) 3 ml Route: Nebulizer; ph 15:45 Follow up: Response: No adverse reaction ph 12:25 Drug: DuoNeb Nebulize (3:1) (2.5 mg - 0.5 mg) 3 ml Route: Nebulizer; ph 15:45 Follow up: Response: No adverse reaction ph Disposition Summary: 12/24/22 14:18 Discharge Ordered Location: Home rt Problem: new rt Symptoms: have improved rt Condition: Stable rt Diagnosis - Pulmonary embolism without acute cor pulmonale rt Followup: rt - With: Private Physician - When: 2 - 3 days - Reason: Discharge Instructions: - Discharge Summary Sheet rt - Pulmonary Embolism rt Forms: - Medication Reconciliation Form rt - Thank You Letter rt - Antibiotic Education rt - Prescription Opioid Use rt - [email or web address] rt Prescriptions: - Eliquis DVT-PE Treat 30D Start 5 mg (74 tabs) Oral Tablet, Dose Pack - take 2 tablet by ORAL route per package directions; 74 tablet; Refills: 0, rt Product Selection Permitted Signatures: Dispatcher [employer] Valerie Palma RN RN ph Manuel Florentino MD MD rt
--- NOTE | 2022-12-24 14:19 | ER ---
Nurse's Notes [facility] Name: Jonathan Sultana Age: 67 yrs Sex: Male : 1955 Arrival Date: 12/24/2022 Time: 11:15 Bed 2 Private MD: Diagnosis: Pulmonary embolism without acute cor pulmonale Presentation: 12/24 11:16 Chief complaint: EMS states: L sided chest/rib pain that started yesterday at approx ph noon, also reports some SOB, pain worse w/ movement and deep breathing, 12 lead normal, VSS, hx of COPD. Coronavirus screen: Vaccine status: Patient reports being unvaccinated. Ebola Screen: No symptoms or risks identified at this time. Initial Sepsis Screen: Does the patient meet any 2 criteria? No. Patient's initial sepsis screen is negative. Does the patient have a suspected source of infection? No. Patient's initial sepsis screen is negative. Risk Assessment: Do you want to hurt yourself or someone else? Patient reports no desire to harm self or others. Onset of symptoms was December 24, 2022. 11:16 Method Of Arrival: EMS: [facility] 11:16 Acuity: DOROTHY 3 ph Triage Assessment: 11:23 General: Appears in no apparent distress. uncomfortable, Behavior is calm, cooperative. ph Pain: Complains of pain in diaphragm, left lateral anterior chest and left breast. Neuro: Level of Consciousness is awake, alert, obeys commands, Oriented to person, place, time, situation. Cardiovascular: Capillary refill < 3 seconds in bilateral fingers Patient's skin is warm and dry. Cardiovascular: Reports chest pain, shortness of breath, Chest pain quality is sharp, stabbing, is located in left anterior chest wall began 1 day ago. Respiratory: Airway is patent Respiratory effort is even, unlabored, Respiratory pattern is regular, symmetrical. GI: No signs and/or symptoms were reported involving the gastrointestinal system. Derm: Skin is healthy with good turgor, Skin is pink, warm \T\ dry. Historical: - Allergies: 11:22 Neomycin Sulfate; ph 11:22 Demerol; ph - Immunization history:: Adult Immunizations unknown. - Social history:: Smoking status: Patient reports the use of cigarette tobacco products, smokes one-half pack cigarettes per day. - Family history:: not pertinent. Screenin:22 [facility] ED Fall Risk Assessment (Adult) History of falling in the last 3 months, ph including since admission No falls in past 3 months (0 pts) Confusion or Disorientation No (0 pts) Intoxicated or Sedated No (0 pts) Impaired Gait No (0 pts) Mobility Assist Device Used No (0 pt) Altered Elimination No (0 pt) Score/Fall Risk Level 0 - 2 = Low Risk Oriented to surroundings, Maintained a safe environment, Hourly rounding (assess needs \T\ fall precautionary measures) done. Abuse screen: Denies threats or abuse. Denies injuries from another. Nutritional screening: No deficits noted. Tuberculosis screening: No symptoms or risk factors identified. Assessment: 11:25 General: SEE TRIAGE ASSESSMENT. ph 14:30 Reassessment: Patient appears in no apparent distress at this time. Patient and/or db family updated on plan of care and expected duration. Pain level reassessed. Patient is alert, oriented x 3, equal unlabored respirations, skin warm/dry/pink. 15:20 Reassessment: patient states does not have a ride back to [place]. States does not db have money for Taxi. Notified [facility] charge nurse. Vital Signs: 11:16 BP 136 / 89; Pulse 72; Resp 18; Temp 98.4; Pulse Ox 96% on R/A; Weight 90.72 kg; Height ph 6 ft. 1 in. ; 12:13 BP 107 / 71; Pulse 72; Resp 18; Pulse Ox 94% on R/A; ph 13:08 Pulse 72; Resp 18; Pulse Ox 100% on Nebulizer Mask; ph 13:45 BP 110 / 69; Pulse 72; Resp 16; Pulse Ox 96% on R/A; db 14:30 BP 113 / 73; Pulse 74; Resp 16; Pulse Ox 96% on R/A; db 15:15 BP 106 / 70; Pulse 76; Resp 16; Pulse Ox 97% on R/A; db 11:16 Body Mass Index 26.39 (90.72 kg, 185.42 cm) ph ED Course: 11:16 Patient arrived in ED. ph 11:16 Manuel Florentino MD is Attending Physician. rt 11:21 Triage completed. ph 11:22 Arm band placed on Patient placed in an exam room, on a stretcher, on manager solution, ph on pulse oximetry. 11:23 Patient has correct armband on for positive identification. Placed in gown. Bed in low ph position. Call light in reach. Side rails up X2. Client placed on continuous cardiac and pulse oximetry monitoring. NIBP monitoring applied. 11:25 Maintain EMS IV. Dressing intact. Good blood return noted. Site clean \T\ dry. Gauge \T\ ph site: 20 LAC. 11:25 Patient maintains SpO2 saturation greater than 95% on room air. ph 12:01 XRAY Chest (1 view) In Process Unspecified. EDMS 12:10 Valerie Prieto, RN is Primary Nurse. ph 12:29 CT Chest For PE Angio In Process Unspecified. EDMS 15:44 No provider procedures requiring assistance completed. IV discontinued, intact, ph bleeding controlled, No redness/swelling at site. Pressure dressing applied. Administered Medications: 11:30 Drug: Nitroglycerin Sublingual 0.4 mg Route: Sublingual; ph 15:45 Follow up: Response: No adverse reaction ph 11:30 Drug: DuoNeb Nebulize (3:1) (2.5 mg - 0.5 mg) 3 ml Route: Nebulizer; ph 15:45 Follow up: Response: No adverse reaction ph 12:25 Drug: DuoNeb Nebulize (3:1) (2.5 mg - 0.5 mg) 3 ml Route: Nebulizer; ph 15:45 Follow up: Response: No adverse reaction ph Medication: 11:23 VIS not applicable for this client. ph Outcome: 14:18 Discharge ordered by MD. rt 15:44 Discharged to home ambulatory. ph 15:44 Condition: good 15:44 Discharge instructions given to patient, Instructed on discharge instructions, follow up and referral plans. medication usage, Demonstrated understanding of instructions, follow-up care, medications, Prescriptions given X 1. 15:46 Patient left the ED. ph Signatures: Dispatcher [employer] EDGA Valerie Prieto RN RN ph Ariela Sorto RN RN db Manuel Florentino MD MD rt Corrections: (The following items were deleted from the chart) 12:13 12:12 DuoNeb Nebulize (3:1) (2.5 mg - 0.5 mg) 3 ml Nebulizer ph ph
[2022-12-24 15:51] VITALS: TEMP 98.4
[2022-12-24 15:57] VITALS: BP 106/70; O2SAT 97
--- NOTE | 2022-12-24 20:34 | EKG ---
Test Date: 2022-12-24 Test Time: 11:16:04 Ice Delivery Driver: AARON MEASUREMENT RESULTS: Intervals: Rate: 72 SC: 212 QRSD: 100 QT: 378 QTc: 413 [place]: P: 48 SC: 212 QRS: -6 T: 40 INTERPRETIVE STATEMENTS: Sinus rhythm with 1st degree AV block Otherwise normal ECG No previous ECG available for comparison Electronically Signed On 12-24-22 20:32:36 CDT by Matt Amato
== END 2022-12-24 15:46 | disposition home or self-care (01) ==
LOC: ER 11:15
DX: I26.99 Other pulmonary embolism without acute cor pulmonale (principal); F17.210 Nicotine dependence, cigarettes, uncomplicated; Z88.3 Allergy status to other anti-infective agents; Z88.5 Allergy status to narcotic agent
CPT/HCPCS: 93005; 85025; 80048; 36415; 83735; 85379; 80076; 84484; 83880; 71275; 71045; Q9967; J7613 ×2; J7644 ×2